=== PATIENT | male | born 1960 | race Caucasian/White ===

== ENCOUNTER 2016-05-20 17:23 | Inpatient (IN) | payer BC ==
[2016-05-20 18:50] LABS: Basophils # (A) 0.1 k/uL (0-0.2); Basophils % (A) 1 %; CH 30.9; CHCM 33.7; Eosinophils # (A) 0.3 k/uL (0-0.7); Eosinophils % (A) 3 %; HCT 39.2 % (39.0-53.0); HDW 2.54; HGB 12.6 gm/dL (13.0-17.5); Luc # (Auto) 0.21; Luc % (Auto) 2; Lymphocytes # (A) 2.6 k/uL (1.0-4.8); Lymphocytes % (A) 27 %; MCH 29.6 pg (25.0-35.0); MCHC 32.1 g/dL (31.0-37.0); MCV 92.2 fL (80.0-100.0); Mean Platelet Volume 7.6; Monocytes # (A) 0.9 k/uL (0-1.0); Monocytes % (A) 9 %; Neutrophils # (A) 5.7 k/uL (1.3-7.7); Neutrophils % (A) 59 %; RBC 4.25 m/uL (4.30-5.90); RDW 12.7 % (11.5-15.5); WBC 9.7 k/uL (3.8-10.6); WBC (Perox) 9.93
[2016-05-20 19:08] LABS: Partial Thromboplastin Time 24.3 sec (22.0-30.0); Prothrombin Time 10.6 sec (9.0-12.0)
[2016-05-20 19:19] LABS: ALT 34 U/L (21-72); AST 16 U/L (17-59); Alkaline Phosphatase 76 U/L (38-126); Anion Gap 15 mmol/L; Blood Urea Nitrogen 25 mg/dL (9-20); Calcium 9.7 mg/dL (8.4-10.2); Carbon Dioxide 27 mmol/L (22-30); Chloride 100 mmol/L (98-107); Glucose 111 mg/dL (74-99); Non-African American GFR(MDRD) >60 (>60 ml/min/1.73 sqM); Potassium 4.4 mmol/L (3.5-5.1); Sodium 142 mmol/L (137-145); Total Bilirubin 0.5 mg/dL (0.2-1.3); Total Protein 7.1 g/dL (6.3-8.2)
[2016-05-20 19:28] LABS: Creatine Kinase MB 0.6 ng/mL (0.0-2.4)
--- NOTE | 2016-05-20 19:42 | ED ---
Recheck HPI - General Chief Complaint: Recheck/Abnormal Lab/Rx Stated Complaint: abn CT scan Time Seen by Provider: 05/20/16 17:35 Source: patient, family, RN notes reviewed, old records reviewed Mode of arrival: wheelchair Limitations: no limitations - History of Present Illness Initial Comments: This is a 55-year-old male with a history of a recent right knee surgery who had the onset over last day or 2 of left-sided chest pain. He was seen by his orthopedic surgeon today CAT scan of the chest was ordered and did reveal evidence a right lower lobe pulmonary embolism. Additionally there was evidence of a dilated he ordered route 4.2 cm at the ascending aorta. Patient denies any fevers chills sweats cough he has had some shortness of breath. Mostly the chest pain it did not get worse with deep breathing or movement. Additionally he did have an ultrasound was lower extremities which did reveal no evidence of DVT. He's had no prior history of blood clots. He otherwise is been doing well. MD Complaint: other - Related Data Home Medications Medication Instructions Recorded Confirmed Docusate [Colace] 100 mg PO TID PRN 05/20/16 05/20/16 HYDROcodone/APAP 7.5-325MG [[place] 1 tab PO Q6HR PRN 05/20/16 05/20/16 7.5-325] Previous Rx's Medication Instructions Recorded Aspirin 325 mg PO BID #60 tab 05/06/16 Allergies Allergy/AdvReac Type Severity Reaction Status Date / Time shellfish derived [Shellfish] Allergy Anaphylaxis Verified 05/20/16 17:51 Review of Systems ROS Statement: Those systems with pertinent positive or pertinent negative responses have been documented in the HPI. ROS Other: All systems not noted in ROS Statement are negative. Past Medical History Past Medical History: Hyperlipidemia, Osteoarthritis (OA), Pneumonia Additional Past Medical History / Comment(s): 04/09/15 Pt presented to [facility] ER with cough, chest congestion, loss of voice (raspy). He saw his PCP and was placed on ABX and Medrol but has gotten no better- he feels worse. He has a sore throat and occasonal sweats and chills. He is being admitted with clinical impression of R lower lobe pneumonia, dyspnea and sinusitis. Other HX : Pt states he has had high cholesterol in the past but has never had to take medication for this, ocular migraines that are seasonal, sinus problems, otosclerosis, pneumonia 2009rare vertigo, NESTOR-no device used, OA of bilateral hands and knees, fx L arm and injury with R ankle damage yrs ago. History of Any Multi-Drug Resistant Organisms: None Reported Past Surgical History: Hernia Repair, Orthopedic Surgery Additional Past Surgical History / Comment(s): Umbilical hernia repair, R knee arthroscopy, fibroid tumor removed from L lower back, bronchoscopy 2008, sinuplasty with polypectomy. Past Anesthesia/Blood Transfusion Reactions: Motion Sickness, Postoperative Nausea & Vomiting (PONV) Past Psychological History: No Psychological Hx Reported Additional Psychological History / Comment(s): Pt states he is not sure but may have SAD. He is independent. He uses no assistive device. He lives with his spouse. He drives. Smoking Status: Never smoker Past Alcohol Use History: None Reported Past Drug Use History: None Reported - Past Family History Father Family Medical History: Renal Disease Additional Family Medical History / Comment(s): Father recently diagnosed with hydrocephalis. He is on peritoneal dialysis. He is 76 yrs old. Mother Family Medical History: No Reported History Additional Family Medical History / Comment(s): Mother is healthy and is 75 yrs. old. General Exam - General Exam Comments Initial Comments: This is a well developed well-nourished awake alert oriented times x3 male Limitations: no limitations General appearance: alert, in no apparent distress Head exam: Present: atraumatic, normocephalic, normal inspection Eye exam: Present: normal appearance, PERRL, EOMI. Absent: scleral icterus, conjunctival injection, periorbital swelling ENT exam: Present: normal exam, mucous membranes moist Neck exam: Present: normal inspection. Absent: tenderness, meningismus, lymphadenopathy Respiratory exam: Present: normal lung sounds bilaterally, chest wall tenderness. Absent: respiratory distress, wheezes, rales, rhonchi, stridor Cardiovascular Exam: Present: regular rate, normal rhythm, normal heart sounds. Absent: systolic murmur, diastolic murmur, rubs, gallop, clicks GI/Abdominal exam: Present: soft, normal bowel sounds. Absent: distended, tenderness, guarding, rebound, rigid Extremities exam: Present: normal capillary refill, other (Well-healing surgical incision over the right knee no evidence of any erythema no drainage no dehiscence. The catheter bilaterally nontender not edematous no palpable cords.). Absent: tenderness, pedal edema, joint swelling, calf tenderness Back exam: Present: normal inspection Neurological exam: Present: alert, oriented X3, CN II-XII intact Psychiatric exam: Present: normal affect, normal mood Skin exam: Present: warm, dry, normal color. Absent: rash Course Vital Signs 05/20/16 17:27 Temperature 98.3 F Pulse Rate 87 Respiratory 20 Rate Blood Pressure 135/79 O2 Sat by Pulse 97 Oximetry Medical Decision Making - Medical Decision Making I did discuss the findings with the patient and his patient will be admitted I did discuss case with Dr. Sanford. - Lab Data Result diagrams: 05/20/16 18:05 05/20/16 18:05 Lab Results 05/20/16 05/20/16 05/20/16 Range/Units 18:05 18:05 18:05 WBC 9.7 (3.8-10.6) k/uL RBC 4.25 L (4.30-5.90) m/uL Hgb 12.6 L (13.0-17.5) gm/dL Hct 39.2 (39.0-53.0) % MCV 92.2 (80.0-100.0) fL MCH 29.6 (25.0-35.0) pg MCHC 32.1 (31.0-37.0) g/dL RDW 12.7 (11.5-15.5) % Plt Count 542 H D (150-450) k/uL Neutrophils % 59 % Lymphocytes % 27 % Monocytes % 9 % Eosinophils % 3 % Basophils % 1 % Neutrophils # 5.7 (1.3-7.7) k/uL Lymphocytes # 2.6 (1.0-4.8) k/uL Monocytes # 0.9 (0-1.0) k/uL Eosinophils # 0.3 (0-0.7) k/uL Basophils # 0.1 (0-0.2) k/uL PT 10.6 (9.0-12.0) sec INR 1.0 (<1.1) APTT 24.3 (22.0-30.0) sec Sodium (137-145) mmol/L Potassium (3.5-5.1) mmol/L Chloride (98-107) mmol/L Carbon Dioxide (22-30) mmol/L Anion Gap mmol/L BUN (9-20) mg/dL Creatinine (0.66-1.25) mg/dL Est GFR (MDRD) Af Amer (>60 ml/min/1.73 sqM) Est GFR (MDRD) Non-Af (>60 ml/min/1.73 sqM) Glucose (74-99) mg/dL Calcium (8.4-10.2) mg/dL Magnesium (1.6-2.3) mg/dL Total Bilirubin (0.2-1.3) mg/dL AST (17-59) U/L ALT (21-72) U/L Alkaline Phosphatase (38-126) U/L Total Creatine Kinase 56 (55-170) U/L CK-MB (CK-2) 0.6 (0.0-2.4) ng/mL CK-MB (CK-2) Rel Index 1.1 Total Protein (6.3-8.2) g/dL Albumin (3.5-5.0) g/dL 05/20/16 Range/Units 18:05 WBC (3.8-10.6) k/uL RBC (4.30-5.90) m/uL Hgb (13.0-17.5) gm/dL Hct (39.0-53.0) % MCV (80.0-100.0) fL MCH (25.0-35.0) pg MCHC (31.0-37.0) g/dL RDW (11.5-15.5) % Plt Count (150-450) k/uL Neutrophils % % Lymphocytes % % Monocytes % % Eosinophils % % Basophils % % Neutrophils # (1.3-7.7) k/uL Lymphocytes # (1.0-4.8) k/uL Monocytes # (0-1.0) k/uL Eosinophils # (0-0.7) k/uL Basophils # (0-0.2) k/uL PT (9.0-12.0) sec INR (<1.1) APTT (22.0-30.0) sec Sodium 142 (137-145) mmol/L Potassium 4.4 (3.5-5.1) mmol/L Chloride 100 (98-107) mmol/L Carbon Dioxide 27 (22-30) mmol/L Anion Gap 15 mmol/L BUN 25 H (9-20) mg/dL Creatinine 0.93 (0.66-1.25) mg/dL Est GFR (MDRD) Af Amer >60 (>60 ml/min/1.73 sqM) Est GFR (MDRD) Non-Af >60 (>60 ml/min/1.73 sqM) Glucose 111 H (74-99) mg/dL Calcium 9.7 (8.4-10.2) mg/dL Magnesium 2.0 (1.6-2.3) mg/dL Total Bilirubin 0.5 (0.2-1.3) mg/dL AST 16 L (17-59) U/L ALT 34 (21-72) U/L Alkaline Phosphatase 76 (38-126) U/L Total Creatine Kinase (55-170) U/L CK-MB (CK-2) (0.0-2.4) ng/mL CK-MB (CK-2) Rel Index Total Protein 7.1 (6.3-8.2) g/dL Albumin 4.1 (3.5-5.0) g/dL Disposition Clinical Impression: Pulmonary embolism, Aortic root dilatation Disposition: ADMITTED IP TO THIS HOSP Condition: Stable
[2016-05-20] MEDS ORDERED: NALOXONE 0.4 MG/ML 1 ML VIAL IV PRN (19:58)
[2016-05-20] MEDS ORDERED: HEPARIN SODIUM,PORCINE 5,000 UNIT/ML 1 ML VIAL IV STA (20:01)
[2016-05-20] MEDS: SODIUM CHLORIDE 0.9% 1,000 ML IV SCH (20:50)
[2016-05-20] MEDS: HEPARIN SODIUM,PORCINE/D5W PMX 25,000 UNIT in DEXTROSE/WATER 1 500ML.BAG IV SCH (20:52)
[2016-05-20 21:59] VITALS: BMI 30.8
[2016-05-20] MEDS ORDERED: DOCUSATE 100 MG CAP PO PRN (22:00)
[2016-05-21] MEDS ORDERED: TEMAZEPAM 15 MG CAP PO PRN (00:49)
[2016-05-21] MEDS ORDERED: ALPRAZolam 0.25 MG TAB PO PRN (00:49)
[2016-05-21] MEDS: HYDROcodone/APAP 7.5-325MG 1 EACH TAB PO PRN ×2 (04:36→19:29)
[2016-05-21] MEDS ORDERED: HEPARIN SODIUM,PORCINE 5,000 UNIT/ML 1 ML VIAL IV PRN (04:40)
[2016-05-21] MEDS: PANTOPRAZOLE 40 MG TABLET PO SCH (06:34)
--- NOTE | 2016-05-21 09:11 | P.CNOR ---
History of Present Illness - [facility] Consult date: 05/21/16 Consult reason: other (Pulmonary Embolism, s/p TKA right) History of present illness: This is a 55-year-old male who is 2 weeks status post total right knee arthroplasty. He was doing fairly well at home. He was attending physical therapy. He states that he developed some left-sided chest pain over the past couple of days. He was seen in our office yesterday and was sent to [facility] for evaluation of his chest pain from our office. Spiral CT scan of the chest reveals a right lower lobe pulmonary embolism and aortic root dilatation. He is admitted to internal medicine and we are consult in for orthopedic follow-up of his right knee. Past Medical History Past Medical History: Hyperlipidemia, Osteoarthritis (OA), Pneumonia Additional Past Medical History / Comment(s): 04/09/15 Pt presented to [facility] ER with cough, chest congestion, loss of voice (raspy). He saw his PCP and was placed on ABX and Medrol but has gotten no better- he feels worse. He has a sore throat and occasonal sweats and chills. He is being admitted with clinical impression of R lower lobe pneumonia, dyspnea and sinusitis. Other HX : Pt states he has had high cholesterol in the past but has never had to take medication for this, ocular migraines that are seasonal, sinus problems, otosclerosis, pneumonia 2009rare vertigo, NESTOR-no device used, OA of bilateral hands and knees, fx L arm and injury with R ankle damage yrs ago. History of Any Multi-Drug Resistant Organisms: None Reported Past Surgical History: Hernia Repair, Orthopedic Surgery Additional Past Surgical History / Comment(s): Umbilical hernia repair, R knee arthroscopy, fibroid tumor removed from L lower back, bronchoscopy 2008, sinuplasty with polypectomy. right total knee replacement 05/05/16 Past Anesthesia/Blood Transfusion Reactions: Motion Sickness, Postoperative Nausea & Vomiting (PONV) Past Psychological History: No Psychological Hx Reported Additional Psychological History / Comment(s): Pt states he is not sure but may have SAD. He is independent. He uses no assistive device. He lives with his spouse. He drives. Smoking Status: Never smoker Past Alcohol Use History: None Reported Past Drug Use History: None Reported - Past Family History Brother(s) Family Medical History: No Reported History Sister(s) Family Medical History: No Reported History Father Family Medical History: Renal Disease Additional Family Medical History / Comment(s): Father recently diagnosed with hydrocephalis (NPH). He is on peritoneal dialysis. He is 76 yrs old. Mother Family Medical History: No Reported History Additional Family Medical History / Comment(s): Mother is healthy and is 75 yrs. old. Medications and Allergies Home Medications Medication Instructions Recorded Confirmed Type Docusate [Colace] 100 mg PO TID PRN 05/20/16 05/20/16 History HYDROcodone/APAP 7.5-325MG [[place] 1 tab PO Q6HR PRN 05/20/16 05/20/16 History 7.5-325] Allergies Allergy/AdvReac Type Severity Reaction Status Date / Time shellfish derived [Shellfish] Allergy Anaphylaxis Verified 05/20/16 17:51 Physical Examination This is a pleasant 55-year-old male in no acute distress. He is alert and oriented 3. Exam of the right lower extremity reveals that his incision looks good. There is no erythema or ecchymosis. There is minimal swelling. The Dermabond glue and taper intact. His calf is soft and nontender. He has full foot and ankle motion without difficulty or pain. He has active straight leg raise without difficulty or pain. Neurovascular status to the right lower extremity is intact. Results Computed tomography scan of the chest reveals a pulmonary embolism to the right lower lobe and findings suggestive of aortic root dilatation. - Labs Labs: Abnormal Lab Results - Last 24 Hours (Table) 05/21/16 Range/Units 03:26 APTT 37.9 H (22.0-30.0) sec Result Diagrams: 05/20/16 18:05 05/20/16 18:05 Assessment and Plan (1) Aortic root dilatation Status: Acute (2) Pulmonary embolism Status: Acute (3) Osteoarthritis of right knee Status: Acute (4) S/P total knee arthroplasty Status: Acute Plan: The clinical findings are discussed the patient. He is under the care of internal medicine. He may use CPM and participate in physical therapy if okay with internal medicine. I have given the nurse instructions as to how to remove the Dermabond tape. We'll continue to follow.
--- NOTE | 2016-05-21 09:57 | HP ---
DATE OF ADMISSION: 05/20/2015 CHIEF COMPLAINT: Chest pain and shortness of breath. HISTORY OF PRESENT ILLNESS: This 55-year-old gentleman who recently had right knee surgery by Orthopedic Surgery, was complaining of left-sided chest pain for about 2 days. The patient also complains of shortness of breath. He was seen by orthopedic surgery and was recommended CTA which showed pulmonary embolism present in the right lower and left lower lobe, possibly arteriovenous malformation and ascending aortic aneurysm of about 4.2 cm. The patient was admitted for further evaluation and treatment. Ultrasound of the leg was also done, which did not show any acute DVT. There is no history of any fever, rigors or chills. No history of headache, loss of consciousness or seizures. No family history of at this time. The patient follows with Dr. Soto in the outpatient setting. PAST MEDICAL HISTORY: History of recent knee surgery, hyperlipidemia, history of DJD, history of pneumonia, history of hernia repair, history of DJD. Medications prior to admission include: 1. [place] 7.5 every 6 hours p.r.n.. 2. Colace 100 mg t.i.d. 3. Aspirin 325 mg b.i.d. ALLERGIES: SHELLFISH. FAMILY HISTORY: Family history of renal disease, hydrocephalus in father. SOCIAL HISTORY: No history of smoking. No history of alcohol intake. REVIEW OF SYSTEMS: ENT: No diminished vision or hearing. source. The patient is followed by Dr. Soto in the. SOCIAL HISTORY: No. REVIEW OF SYSTEMS: ENT: No diminished hearing. CARDIOVASCULAR: None. GI: No nausea. : No dysuria. NERVOUS SYSTEM: No numbness or weakness. ALLERGY/IMMUNOLOGY: As mentioned earlier. CONSTITUTIONAL: As mentioned earlier. PSYCHIATRY: As mentioned earlier. PHYSICAL EXAM: VITAL SIGNS: Pulse 93, respirations 130/58, respirations 18, temperature 98.1, pulse ox 97% on 2 liters. HEENT: Conjunctivae normal. Oral mucosa moist. NECK: No JVD. No carotid bruits. No lymph nodes palpable. CARDIOVASCULAR: S1 and S2 muffled. LUNGS: Breath sounds diminished at the bases. A few scattered rhonchi, no crackles. ABDOMEN: Soft, nontender. EXTREMITIES: Legs status post right knee arthroplasty, healing. No edema, no swelling. Pulses normal. NERVOUS SYSTEM: As aforementioned. Moves all limbs. No focal motor deficits. No lymph nodes palpable in the neck or axilla. SKIN: No rashes. LABS: WBC 9, hemoglobin 12.6, platelets 542. CT scan reviewed. AST 16. ASSESSMENT: 1. Acute bilateral embolism. No chest pain or shortness of breath. 2. History of recent right knee arthroplasty. 3. History of degenerative joint disease. 4. Hyperlipidemia. 5. History of pneumonia. 6. History of hernia repair, umbilical. 7. Anemia, normocytic anemia of chronic disease. 8. Increased platelets. 9. Increased random blood sugar. RECOMMENDATIONS AND DISCUSSION: In this 55-year-old gentleman who presented with multiple medical issues, we will monitor the patient closely. Continue with the condition medications and symptomatic treatment. I would recommend to continue with IV heparin drip. Otherwise symptomatic treatment of pain. I would also recommend consultation with Dr. Mckinney and as well as cardiology. EKG and cardiac workup also recommended including a 2-D echo. Otherwise, prognosis guarded because of multiple complex medical issues. Further recommendations to follow. MTDD
[2016-05-21] MEDS: HEPARIN SODIUM,PORCINE/D5W PMX 25,000 UNIT in DEXTROSE/WATER 1 500ML.BAG IV SCH (11:05)
--- NOTE | 2016-05-21 11:33 | ECHOF ---
Referral Reason:chest pain/PE MEASUREMENTS -------- HEIGHT: 177.8 cm WEIGHT: 91.2 kg BP: 127/85 RVIDd: 3.3 cm (< 3.3) IVSd: 1.3 cm (0.6 - 1.1) LVIDd: 4.4 cm (3.9 - 5.3) LVPWd: 1.2 cm (0.6 - 1.1) IVSs: 1.8 cm LVIDs: 3.2 cm LVPWs: 2.2 cm LA Diam: 3.6 cm (2.7 - 3.8) LAESV Index (A-L): 21.37 ml/m Ao Diam: 4.5 cm (2.0 - 3.7) AV Cusp: 2.9 cm (1.5 - 2.6) MV EXCURSION: 16.920 mm (> 18.000) MV EF SLOPE: 93 mm/s (70 - 150) EPSS: 0.7 cm MV E Efraín: 0.98 m/s MV DecT: 186 ms MV A Efraín: 1.07 m/s MV E/A Ratio: 0.92 RAP: 5.00 mmHg RVSP: 17.61 mmHg FINDINGS -------- Sinus rhythm. This was a technically good study. The left ventricular size is normal. There is mild concentric left ventricular hypertrophy. Overall left ventricular systolic function is normal with, an EF between 60 - 65 %. The right ventricle is mildly enlarged. The left atrium is normal in size. Normal LA size by volume 22+/-6 ml/m2. The right atrium is normal in size. The aortic valve is trileaflet and appears structurally normal. Mild mitral annular calcification present. The tricuspid valve appears structurally normal. Right ventricular systolic pressure is normal at < 35 mmHg. Trace/mild (physiologic) pulmonic regurgitation. The aortic root is dilated measuring 4.5cm. Normal inferior vena cava with normal inspiratory collapse consistent with estimated right atrial pressure of 5 mmHg. There is no pericardial effusion. CONCLUSIONS -------- 1. Sinus rhythm. 2. Mild mitral annular calcification present. 3. The tricuspid valve appears structurally normal. 4. Right ventricular systolic pressure is normal at < 35 mmHg. 5. Trace/mild (physiologic) pulmonic regurgitation. 6. The aortic root is dilated measuring 4.5cm. 7. Normal inferior vena cava with normal inspiratory collapse consistent with estimated right atrial pressure of 5 mmHg. 8. There is no pericardial effusion. 9. This was a technically good study. 10. The left ventricular size is normal. 11. There is mild concentric left ventricular hypertrophy. 12. Overall left ventricular systolic function is normal with, an EF between 60 - 65 %. 13. The right ventricle is mildly enlarged. 14. Normal LA size by volume 22+/-6 ml/m2. 15. The right atrium is normal in size. 16. The aortic valve is trileaflet and appears structurally normal. SUPER[employer]OR [employer]ICLE: Josefina Nieves RDCS
--- NOTE | 2016-05-21 12:08 | P.CRDCN ---
History of Present Illness Consult date: 05/21/16 Requesting physician: Enedina Sanford Reason for Consult (text): PE Chief complaint: Chest pain and shortness of breath History of present illness: This is a 55-year-old gentleman with no prior documented history of hypertension, no diabetes, no hyperlipidemia, nonsmoker, who underwent right knee surgery on May 05. According to the patient, Thursday evening he developed a severe sudden onset of left-sided chest pain with associated shortness of breath. He states that the symptoms subsided, and he did not think any more about it. Thursday evening around the same time he again developed the same symptoms. The patient had an appointment with Dr. Houston for follow-up yesterday, he mentioned these symptoms to him, was advised to go and have a CTA of the chest performed. CTA of the chest revealed pulmonary embolism present in the right lower lobe. Findings in the left lower lobe may represent and AV malformation follow-up was recommended. Ascending aortic aneurysm measured 4.2 cm. Venous duplex study negative for DVT. Patient was initiated on IV heparin, continues to be on IV heparin at this time. An echocardiogram with Doppler study was performed revealed an ejection fraction of 60-65%. RVSP normal. Lab data reviewed, hemoglobin 12.6, potassium 4.4, BUN 25, creatinine 0.9. Troponins 0.0122. At the time of my examination this morning, patient states his breathing is stable, chest pain is resolved. Past Medical History Past Medical History: Hyperlipidemia, Osteoarthritis (OA), Pneumonia Additional Past Medical History / Comment(s): 04/09/15 Pt presented to [facility] ER with cough, chest congestion, loss of voice (raspy). He saw his PCP and was placed on ABX and Medrol but has gotten no better- he feels worse. He has a sore throat and occasonal sweats and chills. He is being admitted with clinical impression of R lower lobe pneumonia, dyspnea and sinusitis. Other HX : Pt states he has had high cholesterol in the past but has never had to take medication for this, ocular migraines that are seasonal, sinus problems, otosclerosis, pneumonia 2009rare vertigo, NESTOR-no device used, OA of bilateral hands and knees, fx L arm and injury with R ankle damage yrs ago. History of Any Multi-Drug Resistant Organisms: None Reported Past Surgical History: Hernia Repair, Orthopedic Surgery Additional Past Surgical History / Comment(s): Umbilical hernia repair, R knee arthroscopy, fibroid tumor removed from L lower back, bronchoscopy 2008, sinuplasty with polypectomy. right total knee replacement 05/05/16 Past Anesthesia/Blood Transfusion Reactions: Motion Sickness, Postoperative Nausea & Vomiting (PONV) Past Psychological History: No Psychological Hx Reported Additional Psychological History / Comment(s): Pt states he is not sure but may have SAD. He is independent. He uses no assistive device. He lives with his spouse. He drives. Smoking Status: Never smoker Past Alcohol Use History: None Reported Past Drug Use History: None Reported - Past Family History Brother(s) Family Medical History: No Reported History Sister(s) Family Medical History: No Reported History Father Family Medical History: Renal Disease Additional Family Medical History / Comment(s): Father recently diagnosed with hydrocephalis (NPH). He is on peritoneal dialysis. He is 76 yrs old. Mother Family Medical History: No Reported History Additional Family Medical History / Comment(s): Mother is healthy and is 75 yrs. old. Medications and Allergies Home Medications Medication Instructions Recorded Confirmed Type Docusate [Colace] 100 mg PO TID PRN 05/20/16 05/20/16 History HYDROcodone/APAP 7.5-325MG [[place] 1 tab PO Q6HR PRN 05/20/16 05/20/16 History 7.5-325] Allergies Allergy/AdvReac Type Severity Reaction Status Date / Time shellfish derived [Shellfish] Allergy Anaphylaxis Verified 05/20/16 17:51 Physical Exam Vitals: Vital Signs Temp Pulse Pulse Resp BP BP Pulse Ox 05/21/16 11:49 71 17 127/71 97 05/21/16 08:00 97 F L 70 17 115/70 96 05/21/16 04:00 98.7 F 74 16 127/85 94 L 05/21/16 00:00 97.2 F L 90 16 130/80 96 05/20/16 21:36 97.9 F 98 16 136/83 95 05/20/16 20:44 99.1 F 93 18 135/81 97 05/20/16 20:27 18 Intake and Output 05/20/16 05/21/16 05/21/16 22:59 06:59 14:59 Intake Total 253.582 Output Total 775 Balance -521.418 Intake: Intake, IV Titration 253.582 Amount Heparin Sodium,Porcine/ 253.582 D5w Pmx 25,000 unit In Dextrose/Water 1 500ml. bag @ 18 UNITS/KG/HR 32. 65 mls/hr IV .[id number] [facility] Rx#:[id number] Output: Urine 775 Other: Voiding Method Urinal Urinal Urinal Weight 97.4 kg 91.4 kg PHYSICAL EXAMINATION: HEENT: Head is atraumatic, normocephalic. Pupils equal, round. Neck is supple. There is no elevated jugular venous pressure. HEART EXAMINATION: Heart S1, S2 normal. No murmur or gallop heard. CHEST EXAMINATION: Lungs are clear to auscultation and precussion. No chest wall tenderness is noted on palpation or with deep breathing. ABDOMEN: Soft, nontender. Bowel sounds are heard. No organomegaly noted. EXTREMITIES: 2+ peripheral pulses with no evidence of peripheral edema and no calf tenderness noted. Incision on right knee clean and dry. NEUROLOGIC patient is awake, alert and oriented -3. . Results 05/20/16 18:05 05/20/16 18:05 Cardiac Enzymes 05/21/16 05/21/16 Range/Units 00:23 06:27 Troponin I <0.012 <0.012 (0.000-0.034) ng/mL Coagulation 05/21/16 Range/Units 03:26 APTT 37.9 H (22.0-30.0) sec Current Medications Generic Name Dose Route Start Last Admin Trade Name Freq PRN Reason Stop Dose Admin Acetaminophen/Hydrocodone Bitart 1 each 05/20/16 22:00 05/21/16 04:36 [place] 7.5-325 PO 1 each Q6HR PRN Administration Pain Alprazolam 0.25 mg 05/21/16 00:49 Xanax PO TID PRN Anxiety Docusate Sodium 100 mg 05/20/16 22:00 Colace PO TID PRN Constipation Heparin Sodium (Porcine) 0 unit 05/21/16 04:40 05/21/16 04:53 Heparin IV 7,792 unit PER PROTOCOL PRN Administration Low PTT Protocol Heparin Sodium/Dextrose 25,000 500 mls @ 32.65 mls/hr 05/20/16 20:15 11:05 unit/ IV Solution IV Not Given .[id number] [facility] Protocol 18 UNITS/KG/HR Sodium Chloride 1,000 mls @ 20 mls/hr 05/20/16 20:00 05/20/16 20:50 Saline 0.9% IV 20 mls/hr .Q24H [facility] Administration Naloxone HCl 0.2 mg 05/20/16 19:58 Narcan IV Q2M PRN Opioid Reversal Pantoprazole Sodium 40 mg 05/21/16 07:30 05/21/16 06:34 Protonix PO 40 mg [id number] [facility] Administration Temazepam 15 mg 05/21/16 00:49 Restoril PO HS PRN Insomnia Intake and Output 05/20/16 05/21/16 05/21/16 22:59 06:59 14:59 Intake Total 253.582 Output Total 775 Balance -521.418 Intake: Intake, IV Titration 253.582 Amount Heparin Sodium,Porcine/ 253.582 D5w Pmx 25,000 unit In Dextrose/Water 1 500ml. bag @ 18 UNITS/KG/HR 32. 65 mls/hr IV .[id number] [facility] Rx#:[id number] Output: Urine 775 Other: Voiding Method Urinal Urinal Urinal Weight 97.4 kg 91.4 kg EKG Interpretations (text) EKG shows normal sinus rhythm with no acute changes. Assessment and Plan Plan: Assessment and plan # 1 acute pulmonary embolism, patient currently on IV heparin. #2 status post total right knee arthroplasty on May 05. Plan From cardiology's perspective, we will recommend to continue current dose of IV heparin. We will also check to see if the patient has coverage for one of the newer anticoagulants, if so we will initiate this. Further recommendations to follow. DNP note has been reviewed, I agree with a documented findings and plan of care. Patient was seen and examined.
--- NOTE | 2016-05-21 12:51 | P.CNPUL ---
History of Present Illness Consult date: 05/21/16 Reason for consult: dyspnea, chest pain Chief complaint: Chest pain and shortness of breath History of present illness: This is a 55-year-old gentleman who just recently had right knee surgery done by Dr. Jones. The patient Don was sitting at home a day ago in his lazy boy chair and about 3:00 in the morning developed some pain in the left chest and some difficulty breathing. The patient came to the emergency room he was evaluated and found have a blood clot in his lung. The patient is feeling better today. Not requiring any oxygen therapy. Anyway the patient is doing better. Currently on IV heparin. He does have some pain when he takes a deep breath. And then had a chance to look at the studies as yet. He is hoping to be discharged home in next day or so. He's been mostly lying around not doing very much since he had his right knee replacement. Review of Systems A 12 point review of system is positive for chest pain primarily and some shortness of breath as a minor symptom. These are pretty much resolved. He denies other complaints and states that the rest of the 12 point review of system is unremarkable. Past Medical History Past Medical History: Hyperlipidemia, Osteoarthritis (OA), Pneumonia Additional Past Medical History / Comment(s): 04/09/15 Pt presented to [facility] ER with cough, chest congestion, loss of voice (raspy). He saw his PCP and was placed on ABX and Medrol but has gotten no better- he feels worse. He has a sore throat and occasonal sweats and chills. He is being admitted with clinical impression of R lower lobe pneumonia, dyspnea and sinusitis. Other HX : Pt states he has had high cholesterol in the past but has never had to take medication for this, ocular migraines that are seasonal, sinus problems, otosclerosis, pneumonia 2009rare vertigo, NESTOR-no device used, OA of bilateral hands and knees, fx L arm and injury with R ankle damage yrs ago. History of Any Multi-Drug Resistant Organisms: None Reported Past Surgical History: Hernia Repair, Orthopedic Surgery Additional Past Surgical History / Comment(s): Umbilical hernia repair, R knee arthroscopy, fibroid tumor removed from L lower back, bronchoscopy 2008, sinuplasty with polypectomy. right total knee replacement 05/05/16 Past Anesthesia/Blood Transfusion Reactions: Motion Sickness, Postoperative Nausea & Vomiting (PONV) Past Psychological History: No Psychological Hx Reported Additional Psychological History / Comment(s): Pt states he is not sure but may have SAD. He is independent. He uses no assistive device. He lives with his spouse. He drives. Smoking Status: Never smoker Past Alcohol Use History: None Reported Past Drug Use History: None Reported - Past Family History Brother(s) Family Medical History: No Reported History Sister(s) Family Medical History: No Reported History Father Family Medical History: Renal Disease Additional Family Medical History / Comment(s): Father recently diagnosed with hydrocephalis (NPH). He is on peritoneal dialysis. He is 76 yrs old. Mother Family Medical History: No Reported History Additional Family Medical History / Comment(s): Mother is healthy and is 75 yrs. old. Medications and Allergies Home Medications Medication Instructions Recorded Confirmed Type Docusate [Colace] 100 mg PO TID PRN 05/20/16 05/20/16 History HYDROcodone/APAP 7.5-325MG [[place] 1 tab PO Q6HR PRN 05/20/16 05/20/16 History 7.5-325] Allergies Allergy/AdvReac Type Severity Reaction Status Date / Time shellfish derived [Shellfish] Allergy Anaphylaxis Verified 05/20/16 17:51 Physical Exam Osteopathic Statement: *. No significant issues noted on an osteopathic structural exam other than those noted in the History and Physical/Consult. Vitals: Vital Signs Temp Pulse Pulse Resp BP BP Pulse Ox 05/21/16 11:49 71 17 127/71 97 05/21/16 08:00 97 F L 70 17 115/70 96 05/21/16 04:00 98.7 F 74 16 127/85 94 L 05/21/16 00:00 97.2 F L 90 16 130/80 96 05/20/16 21:36 97.9 F 98 16 136/83 95 05/20/16 20:44 99.1 F 93 18 135/81 97 05/20/16 20:27 18 Intake and Output 05/20/16 05/21/16 05/21/16 22:59 06:59 14:59 Intake Total 253.582 Output Total 775 Balance -521.418 Intake: Intake, IV Titration 253.582 Amount Heparin Sodium,Porcine/ 253.582 D5w Pmx 25,000 unit In Dextrose/Water 1 500ml. bag @ 18 UNITS/KG/HR 32. 65 mls/hr IV .[id number] [facility] Rx#:[id number] Output: Urine 775 Other: Voiding Method Urinal Urinal Urinal Weight 97.4 kg 91.4 kg No acute distress, oriented 3. HEENT examination is grossly unremarkable. Mucous membranes are moist. No oral lesions. Neck supple. Full range of motion. No adenopathy or thyromegaly. Neck veins are flat. Cardiovascular examination reveals regular rhythm rate. S1-S2 normal. No S3- S4 or murmur. Lungs reveal clear breath sounds. No wheezes rhonchi. No crackles. Abdomen soft bowel sounds are heard. Extremities are intact. The incision from the recent right knee surgeries noted. Results - Laboratory Findings CBC and BMP: 05/20/16 18:05 05/20/16 18:05 PT/INR, D-dimer PT 10.6 sec (9.0-12.0) 05/20/16 18:05 INR 1.0 (<1.1) 05/20/16 18:05 Abnormal lab findings: Abnormal Labs 05/21/16 03:26 APTT 37.9 H - Diagnostic Findings Chest x-ray: image reviewed CT scan - chest: image reviewed Assessment and Plan (1) Pulmonary embolism Status: Acute (2) Osteoarthritis of right knee Status: Acute (3) S/P total knee arthroplasty Status: Acute (4) Sinusitis Status: Acute Plan: Plan The patient should be treated for 3 months. This is a provoked a blood clot given the recent history of a right knee surgery. The patient should be treated with was a new factor X a inhibitor such as Eliquis or Xarelto. The patient otherwise is doing recently well. I'll look at his labs his medications and his x-rays. I will see him back in the office. In addition, the patient will have some Singulair added to his regimen for ALLERGIES. He needs a follow-up computed tomography scan in about 8-10 weeks just to make sure the clot has dissipated. Time with Patient: Greater than 30
[2016-05-21] MEDS ORDERED: MONTELUKAST 10 MG TAB PO SCH (21:00)
[2016-05-22] MEDS: SODIUM CHLORIDE 0.9% 1,000 ML IV SCH
[2016-05-22 06:08] LABS: Basophils # (A) 0.1 k/uL (0-0.2); Basophils % (A) 1 %; CH 30.5; CHCM 32.7; Eosinophils # (A) 0.4 k/uL (0-0.7); Eosinophils % (A) 5 %; HDW 2.45; HGB 13.2 gm/dL (13.0-17.5); Luc # (Auto) 0.33; Luc % (Auto) 4; Lymphocytes # (A) 2.8 k/uL (1.0-4.8); Lymphocytes % (A) 33 %; MCHC 33.1 g/dL (31.0-37.0); MCV 93.8 fL (80.0-100.0); Monocytes # (A) 0.7 k/uL (0-1.0); Monocytes % (A) 8 %; Neutrophils # (A) 4.1 k/uL (1.3-7.7); Neutrophils % (A) 49 %; RBC 4.26 m/uL (4.30-5.90); RDW 12.7 % (11.5-15.5); WBC 8.3 k/uL (3.8-10.6); WBC (Perox) 8.66
[2016-05-22] MEDS: HYDROcodone/APAP 7.5-325MG 1 EACH TAB PO PRN ×2 (06:11→13:47)
[2016-05-22] MEDS: PANTOPRAZOLE 40 MG TABLET PO SCH (06:12)
[2016-05-22] MEDS: HEPARIN SODIUM,PORCINE/D5W PMX 25,000 UNIT in DEXTROSE/WATER 1 500ML.BAG IV SCH ×2 (06:13→11:11)
[2016-05-22 06:20] LABS: Anion Gap 13 mmol/L; Blood Urea Nitrogen 19 mg/dL (9-20); Carbon Dioxide 29 mmol/L (22-30); Chloride 103 mmol/L (98-107); Glucose 135 mg/dL (74-99); Non-African American GFR(MDRD) >60 (>60 ml/min/1.73 sqM); Potassium 4.7 mmol/L (3.5-5.1); Sodium 145 mmol/L (137-145)
[2016-05-22 09:14] VITALS: PULSE 77; RESP 18
--- NOTE | 2016-05-22 09:50 | PN ---
DATE OF SERVICE: 05/21/2016 This 55-year-old gentleman admitted with acute pulmonary embolism was on IV heparin. Seen and evaluated the patient along with the nurse practitioner. Please refer to nurse practitioner notes and impression documented for further information. The patient was also seen by Dr. Mckinney. PAST MEDICAL HISTORY: Reviewed. REVIEW OF SYSTEMS: CARDIOVASCULAR SYSTEM: No angina. RESPIRATORY: As mentioned earlier. GI: No nausea. : No dysuria. Current medications are: 1. [place]. 2. Xanax. 3. Heparin. 4. Singulair. 5. Narcan. 6. Restoril. RECOMMENDATIONS AND DISCUSSION: I recommend to continue current medications, continue with symptomatic treatment. Continue with IV heparin. Check for Xarelto coverage. Increase ambulation. Closely follow with multiple consultants. Singulair has been added. Further recommendations to follow.
--- NOTE | 2016-05-22 10:01 | P.PN ---
Subjective Principal diagnosis: Status post total right knee arthroplasty. This is a 55-year-old male who we are following regarding his total right knee arthroplasty. He developed a pulmonary embolism is admitted to [facility]. He is doing well today. He states his chest pain is improved. He has no complaints or concerns regarding the knee. Objective - Vital Signs Vital signs: Vital Signs Temp 96.6 F L 05/22/16 09:13 Pulse 77 05/22/16 09:13 Resp 18 05/22/16 09:13 BP 127/70 05/22/16 09:13 Pulse Ox 96 05/22/16 09:13 Intake & Output 05/21/16 05/22/16 05/22/16 18:59 06:59 18:59 Intake Total 1302.418 354 Output Total 1150 Balance 1302.418 -1150 354 Weight 96.4 kg Intake: IV 160 Sodium Chloride 0.9% 1, 160 000 ml @ 20 mls/hr IV . Q24H [facility] Rx#:[id number] Intake, IV Titration 246.418 Amount Heparin Sodium,Porcine/ 246.418 D5w Pmx 25,000 unit In Dextrose/Water 1 500ml. bag @ 18 UNITS/KG/HR 32. 65 mls/hr IV .[id number] [facility] Rx#:[id number] Oral [id number] [id number] Output: Urine 1150 Other: Voiding Method Urinal Urinal Urinal - Exam Is a pleasant 65-year-old male in no acute distress. He is alert and oriented 3. Exam of the right knee reveals that his incision looks good. The Dermabond tape is intact. He is working on getting that off with vitamin E oil. He has full foot and ankle motion without difficulty or pain. Neurovascular status lower extremity is intact. - Labs CBC & Chem 7: 05/22/16 05:37 05/22/16 05:37 Labs: Abnormal Lab Results - Last 24 Hours (Table) 05/21/16 05/22/16 05/22/16 Range/Units 11:45 05:37 05:37 RBC 4.26 L (4.30-5.90) m/uL Plt Count 533 H (150-450) k/uL APTT 56.5 H (22.0-30.0) sec Glucose 135 H (74-99) mg/dL 05/22/16 Range/Units 05:37 RBC (4.30-5.90) m/uL Plt Count (150-450) k/uL APTT 50.9 H (22.0-30.0) sec Glucose (74-99) mg/dL Assessment and Plan (1) Aortic root dilatation Status: Acute (2) Pulmonary embolism Status: Acute (3) Osteoarthritis of right knee Status: Acute (4) S/P total knee arthroplasty Status: Acute Plan: The clinical findings are discussed the patient. He is under the care of internal medicine. He may use CPM and participate in physical therapy if okay with internal medicine. I have given the nurse instructions as to how to remove the Dermabond tape. We'll continue to follow.
[2016-05-22] MEDS ORDERED: ACETAMINOPHEN TAB 500 MG TAB PO PRN (10:03)
[2016-05-22 11:33] VITALS: BP 117/59; TEMP 96.9
--- NOTE | 2016-05-22 11:51 | P.PN ---
Subjective Progress note dated 05/22/2016 This is a 55-year-old gentleman who was seen yesterday in consultation. He just recently had right knee surgery done by one of the physicians [facility] at [facility]. The patient developed chest pain while he was sitting in his lazy boy came to the emergency room to be evaluated. He also had some shortness of breath. He was found to have pulmonary embolism. The patient's currently on IV heparin. The patient's feeling better. Could be discharged home today. His insurance is being checked for whether or not he is a candidate for one of the factor X a inhibitors. Ex I did add Singulair for his ALLERGIES yesterday. Objective - Vital Signs Vital signs: Vital Signs Temp 96.9 F L 05/22/16 11:00 Pulse 77 05/22/16 11:00 Resp 18 05/22/16 11:00 BP 117/59 05/22/16 11:00 Pulse Ox 96 05/22/16 09:13 Intake & Output 05/21/16 05/22/16 05/22/16 18:59 06:59 18:59 Intake Total 1302.418 551.971 Output Total 1150 Balance 1302.418 -1150 551.971 Weight 96.4 kg Intake: IV 160 Sodium Chloride 0.9% 1, 160 000 ml @ 20 mls/hr IV . Q24H [facility] Rx#:[id number] Intake, IV Titration 246.418 197.971 Amount Heparin Sodium,Porcine/ 246.418 197.971 D5w Pmx 25,000 unit In Dextrose/Water 1 500ml. bag @ 18 UNITS/KG/HR 32. 65 mls/hr IV .[id number] [facility] Rx#:[id number] Oral [id number] [id number] Output: Urine 1150 Other: Voiding Method Urinal Urinal Urinal - Exam No acute distress, oriented 3. HEENT examination is grossly unremarkable. Mucous membranes are moist. No oral lesions. Supple. Full range of motion. No adenopathy Cardio vascular examination reveals regular rhythm rate. S1-S2 normal. No murmur. No tachycardia. Lungs reveal clear breath sounds. No wheezes or rhonchi. No crackles. Abdomen soft bowel sounds are heard. Extremities are intact. - Labs CBC & Chem 7: 05/22/16 05:37 01/05/17 05:37 Labs: Abnormal Lab Results - Last 24 Hours (Table) 05/21/16 05/22/16 05/22/16 Range/Units 11:45 05:37 05:37 RBC 4.26 L (4.30-5.90) m/uL Plt Count 533 H (150-450) k/uL APTT 56.5 H (22.0-30.0) sec Glucose 135 H (74-99) mg/dL 05/22/16 Range/Units 05:37 RBC (4.30-5.90) m/uL Plt Count (150-450) k/uL APTT 50.9 H (22.0-30.0) sec Glucose (74-99) mg/dL Assessment and Plan (1) Pulmonary embolism Status: Acute (2) Osteoarthritis of right knee Status: Acute (3) S/P total knee arthroplasty Status: Acute (4) Sinusitis Status: Acute Plan: Plan The patient should be treated for 3 months. This is a provoked a blood clot given the recent history of a right knee surgery. The patient should be treated with was a new factor X a inhibitor such as Eliquis or Xarelto. The patient otherwise is doing recently well. I'll look at his labs his medications and his x-rays. I will see him back in the office. In addition, the patient will have some Singulair added to his regimen for ALLERGIES. He needs a follow-up computed tomography scan in about 8-10 weeks just to make sure the clot has dissipated. Plan dated 05/22/2016 The patient could be discharged home. Mole on the primary to make a final decision. The patient will follow me in the office. We'll treat her for a period of 3 months. He'll have a follow-up CAT scan in about 8-10 weeks after his initial CAT scan. Initial recommendations suggestions are forthcoming. Labs x-rays medications are reviewed. Time with Patient: Less than 30
[2016-05-22] MEDS ORDERED: APIXABAN 5 MG TAB PO SCH (13:30)
--- NOTE | 2016-05-22 14:39 | P.PN ---
Subjective Principal diagnosis: PE This is a 55-year-old gentleman with no prior documented history of hypertension, no diabetes, no hyperlipidemia, nonsmoker, who underwent right knee surgery on May 05. According to the patient, Thursday evening he developed a severe sudden onset of left-sided chest pain with associated shortness of breath. He states that the symptoms subsided, and he did not think any more about it. Thursday evening around the same time he again developed the same symptoms. The patient had an appointment with Dr. Houston for follow-up yesterday, he mentioned these symptoms to him, was advised to go and have a CTA of the chest performed. CTA of the chest revealed pulmonary embolism present in the right lower lobe. Findings in the left lower lobe may represent and AV malformation follow-up was recommended. Ascending aortic aneurysm measured 4.2 cm. Venous duplex study negative for DVT. Patient was initiated on IV heparin, continues to be on IV heparin at this time. An echocardiogram with Doppler study was performed revealed an ejection fraction of 60-65%. RVSP normal. IV heparin will be discontinued today and the patient will be started on Eliquis 10 mg by mouth twice a day for one week then 5 mg by mouth twice a day. He may be able to be discharged home today from cardiology' s perspective, a follow-up appointment will be made with Dr. Larsen in the office post discharge. Objective - Vital Signs Vital signs: Vital Signs Temp 96.9 F L 05/22/16 11:00 Pulse 77 05/22/16 11:00 Resp 18 05/22/16 11:00 BP 117/59 05/22/16 11:00 Pulse Ox 96 05/22/16 09:13 Intake & Output 05/21/16 05/22/16 05/22/16 18:59 06:59 18:59 Intake Total 1302.418 773.971 Output Total 1150 460 Balance 1302.418 -1150 313.971 Weight 96.4 kg Intake: IV 160 Sodium Chloride 0.9% 1, 160 000 ml @ 20 mls/hr IV . Q24H [facility] Rx#:[id number] Intake, IV Titration 246.418 197.971 Amount Heparin Sodium,Porcine/ 246.418 197.971 D5w Pmx 25,000 unit In Dextrose/Water 1 500ml. bag @ 18 UNITS/KG/HR 32. 65 mls/hr IV .[id number] [facility] Rx#:[id number] Oral [id number] Output: Urine 1150 460 Other: Voiding Method Urinal Urinal Urinal - Exam PHYSICAL EXAMINATION: HEENT: Head is atraumatic, normocephalic. Pupils equal, round. Neck is supple. There is no elevated jugular venous pressure. HEART EXAMINATION: Heart S1, S2 normal. No murmur or gallop heard. CHEST EXAMINATION: Lungs are clear to auscultation and precussion. No chest wall tenderness is noted on palpation or with deep breathing. ABDOMEN: Soft, nontender. Bowel sounds are heard. No organomegaly noted. EXTREMITIES: 2+ peripheral pulses with no evidence of peripheral edema and no calf tenderness noted. NEUROLOGIC patient is awake, alert and oriented -3. . - Labs CBC & Chem 7: 05/22/16 05:37 05/22/16 05:37 Labs: Abnormal Lab Results - Last 24 Hours (Table) 05/22/16 05/22/16 05/22/16 Range/Units 05:37 05:37 05:37 RBC 4.26 L (4.30-5.90) m/uL Plt Count 533 H (150-450) k/uL APTT 50.9 H (22.0-30.0) sec Glucose 135 H (74-99) mg/dL Assessment and Plan Plan: Assessment and plan # 1 acute pulmonary embolism, patient currently on IV heparin. #2 status post total right knee arthroplasty on May 05. Plan From cardiology's perspective, we will discontinue IV heparin, start the patient on Eliquis 10 mg one tablet by mouth twice a day for one week, then decrease to 5 mg by mouth twice a day. Follow-up appointment will be made with Dr. Larsen in the office in 2-3 weeks post discharge. DNP note has been reviewed, I agree with a documented findings and plan of care. Patient was seen and examined.
--- NOTE | 2016-05-23 13:15 | DS ---
DATE OF ADMISSION: 05/20/2016 DATE OF DISCHARGE: 05/22/2016 DATE OF SERVICE: 05/22/2016 FINAL DIAGNOSES: 1. Acute bilateral pulmonary embolism, was on IV heparin. 2. Heparin monitoring. 3. History of recent right total knee arthroplasty. 4. History of degenerative joint disease. 5. Hyperlipidemia. 6. History of pneumonia. 7. History of hernia repair, umbilical. 8. Anemia, normocytic anemia of chronic disease. 9. Increased platelets. 10. Increased random blood sugar. 11. Ascending aortic aneurysm 4.2 cm. DISCHARGE DISPOSITION: The patient will be discharged in a stable condition with guarded prognosis. HISTORY OF PRESENT ILLNESS: This 55-year-old gentleman with a past medical history of multiple medical problems admitted with chest pain, shortness of breath and pulmonary embolus diagnosed on CAT scan. Patient was treated symptomatically. Patient follows with Dr. Soto in the outpatient setting. The patient recently had a knee surgery on the right. The patient was treated with IV heparin and Dr. Mckinney was consulted. The patient improved significantly. Orthopedics also will follow the patient closely. Lab hig[place], platelets were 533 and glucose 135. Other labs are within normal limits. A 2-D echo with Doppler was also done, which showed ejection fraction of 60% to 65% and aortic root dilatation of 4.5 cm, outpatient followup suggested. On exam, vitals are stable. CARDIOVASCULAR: S1 and S2, muffled. RESPIRATORY; No rhonchi, no crackles. ABDOMEN: Soft. NERVOUS SYSTEM: No focal deficits. LEGS: Status post surgery. DISCHARGE ADVICE: 1. Diet is cardiac. 2. Activity limited until followup. 3. Follow up with Dr. Soto in 2 to 3 days. 4. Follow up with Dr. Mckinney as advised. 5. Follow up with Dr. Larsen as advised, Cardiology. 6. Follow up with orthopedic surgery as recommended. MEDICATIONS: 1. Eliquis 5 mg p.o. b.i.d. for at least 6 months. 2. Colace 100 mg p.o. t.i.d. p.r.n. for constipation. 3. Hydrocodone 7.5 q.6 p.r.n. 4. Singulair 10 mg q.h.s. 5. Protonix 40 mg daily. Pain medication to continue as previously.
== END 2016-05-22 14:52 | disposition home health service (06) | DRG 176 ==
LOC: EC 17:23 → 6SEL 19:58
PROVIDERS: ADMIT Internal Medicine; ATTEND Internal Medicine
DX: I26.99 Other pulmonary embolism without acute cor pulmonale (principal); I71.2 Thoracic aortic aneurysm, without rupture; E78.00 Pure hypercholesterolemia, unspecified; D64.9 Anemia, unspecified; E78.5 Hyperlipidemia, unspecified; J02.9 Acute pharyngitis, unspecified; Z87.01 Personal history of pneumonia (recurrent); Z96.651 Presence of right artificial knee joint; Z79.82 Long term (current) use of aspirin; Z79.899 Other long term (current) drug therapy
CPT/HCPCS: 36415; 71275; 80048; 80053; 82550; 82553; 83735; 84484; 85025; 85610; 85730; 93306; 93965; 93970; 94760; 96376; 99284

== ENCOUNTER → 2016-05-20 | Outpatient (CLI) | payer BC ==
--- NOTE | 2016-05-20 16:44 | US ---
EXAMINATION TYPE: US venous doppler duplex LE BI DATE OF EXAM: 05/20/2016 4:20 PM COMPARISON: NONE CLINICAL HISTORY: Right total knee replacement, right leg pain, chest pain. SIDE PERFORMED: VESSELS IMAGED: External Iliac Vein (EIV) Common Femoral Vein Deep Femoral Vein Greater Saphenous Vein * Femoral Vein Popliteal Vein Small Saphenous Vein * Proximal Calf Veins (* superficial vessels) Right Leg: Negative for DVT Left Leg: Negative for DVT TECHNOLOGIST IMPRESSION: GSV and PTV also scanned per order. Negative as well. IMPRESSION: 1. Negative lower extremity ultrasound for deep venous thrombosis.
--- NOTE | 2016-05-20 17:53 | CT ---
"EXAMINATION TYPE: CT angio chest DATE OF EXAM: 05/20/2016 5:00 PM COMPARISON: Prior exam CT chest 30 October 2009 HISTORY: Left sided chest pain following recent knee replacement. CT DLP: 582.00 mGycm Automated exposure control for dose reduction was used. CONTRAST: CTA scan of the thorax is performed with IV Contrast, patient injected with 100 mL of Omnipaque 350, pulmonary embolism protocol. MIP images are created and reviewed. 3D reconstructed images are creat ed on an independent workstation and reviewed. FINDINGS: LUNGS: The lungs are remarkable for a tubular focus along the major fissure on the right, axial image s 63 through 61, this is thought to been present on previous exam but somewhat more conspicuous. Nod ular density in the left lower lobe measures approximately 1.4 cm and shows irregular margins. There is a suggestion of a draining vein and feeding artery. There is no pleural effusion or pneumothorax s een. The tracheobronchial tree is patent. AORTA: Ascending aorta is dilated at 4.2 cm at the level of the aortic root MEDIASTINUM: There is satisfactory enhancement of the pulmonary artery and its branches, there is CT evidence for pulmonary embolism. Abnormal luminal filling defect present within segmental branches i n the right lower lobe There are no greater than 1 cm hilar or mediastinal lymph nodes. No pericard ial effusion is seen. OTHER: No additional significant abnormality is seen. IMPRESSION: PULMONARY EMBOLISM IS PRESENT IN THE RIGHT LOWER LOBE. FINDINGS IN THE LEFT LOWER LOBE MAY REPRESENT AN ARTERIOVENOUS MALFORMATION. FOLLOW-UP IS RECOMMENDED. ASCENDING AORTIC ANEURYSM, FOLLOW-UP RECOMME NDED. A Red message has been communicated to Gino Barron MD via the [employer] | Critical Result sys tem on 05/20/2016 5:21 PM, Message ID [id number]."
== END | disposition home or self-care (01) ==
LOC: RADCTMAIN 14:57
PROVIDERS: ATTEND Orthopaedic Surgery
DX: M25.561 Pain in right knee (principal); I26.99 Other pulmonary embolism without acute cor pulmonale; Z96.651 Presence of right artificial knee joint
CPT/HCPCS: 93970; 71275; Q9967; 93965

== ENCOUNTER → 2016-08-19 | Outpatient (CLI) | payer BC ==
--- NOTE | 2016-08-19 11:47 | CT ---
EXAMINATION TYPE: CT angio chest DATE OF EXAM: 08/19/2016 11:34 AM COMPARISON: 05/20/2016 and 04/10/2009. HISTORY: 56-year-old male follow-up PE TECHNIQUE: Contiguous axial scanning of the chest performed with IV Contrast, patient injected with 1 00 ml mL of Omnipaque 350. Coronal/sagittal MIP reconstructions performed. CT DLP: 682 mGycm Automated exposure control for dose reduction was used. FINDINGS: The heart is upper limits of normal in size without pericardial effusion. Ascending aorta remains ectatic measuring 3.6 cm. Conventional branching anatomy. There is large caliber to the main right and left pulmonary arteries and isn't 2.7 and 2.6 cm, respec tively, suggesting underlying pulmonary arterial hypertension. There has been interval clearance of previously seen embolic material within the right upper and righ t lower lobe. Scattered nonenlarged mediastinal lymph nodes. No thoracic lymphadenopathy. There is a 1.1 cm irregular nodular density along the posterior left lower lobe, stable from 2008. Th ere is a suggestion of a tiny 2 mm feeding pulmonary artery and a small draining vein to this lesion. Again, a simple AV malformation is suspected. No consolidation or pleural effusion. There is low density of the hepatic parenchyma suggesting underlying fatty infiltration. Correlate wi th LFTs, lipid profile, and patient risk factors. Bones: Mild multilevel endplate spondylosis. IMPRESSION: 1. CORRELATE FOR POSSIBLE UNDERLYING PULMONARY ARTERIAL HYPERTENSION. THE PREVIOUS RIGHT-SIDED EMBOLI HAVE CLEARED IN THE INTERVAL. 2. A 1.1 CM IRREGULAR NODULE POSTERIOR LEFT LOWER LOBE, STABLE DATING BACK TO 2008. THIS MAY REPRESEN T A THROMBOSED/PARTIALLY THROMBOSED SIMPLE PULMONARY AVM. THE FEEDING ARTERY IS TINY MEASURING 2 MM. 3. ECTATIC ASCENDING AORTA (3.6 CM).
== END | disposition home or self-care (01) ==
LOC: RADCTMAIN 10:47
PROVIDERS: ATTEND Family Medicine
DX: I77.810 Thoracic aortic ectasia (principal); R91.1 Solitary pulmonary nodule
CPT/HCPCS: 71275; Q9967

== ENCOUNTER → 2016-09-03 | Outpatient (CLI) | payer BC ==
[2016-09-05 12:27] LABS: Protein C (Activity) 119 % (70 - 130)
[2016-09-05 12:28] LABS: Free Protein S Antigen 109 % (57 - 171)
== END | disposition home or self-care (01) ==
LOC: LABWHC1 15:04
PROVIDERS: ATTEND Internal Medicine
DX: I74.9 Embolism and thrombosis of unspecified artery (principal)
CPT/HCPCS: 36415; 81240; 81241; 81291; 83090; 85300; 85303; 85306; 85613; 85730

== ENCOUNTER → 2017-11-06 | Outpatient (CLI) | payer BC ==
[2017-11-06 08:11] LABS: Basophils % (A) 1 %; Eosinophils # (A) 0.2 k/uL (0-0.7); Eosinophils % (A) 3 %; HCT 47.7 % (39.0-53.0); HGB 15.7 gm/dL (13.0-17.5); Lymphocytes # (A) 2.6 k/uL (1.0-4.8); Lymphocytes % (A) 39 %; MCH 30.6 pg (25.0-35.0); MCHC 32.9 g/dL (31.0-37.0); Mean Platelet Volume 7.5; Monocytes # (A) 0.6 k/uL (0-1.0); Monocytes % (A) 10 %; Neutrophils # (A) 2.9 k/uL (1.3-7.7); Neutrophils % (A) 45 %; Platelet Count 260 k/uL (150-450); RBC 5.12 m/uL (4.30-5.90); WBC 6.5 k/uL (3.8-10.6)
[2017-11-06 09:40] LABS: ALT 32 U/L (21-72); AST 21 U/L (17-59); Albumin 4.2 g/dL (3.5-5.0); Alkaline Phosphatase 66 U/L (38-126); Anion Gap 9 mmol/L; Blood Urea Nitrogen 18 mg/dL (9-20); Calcium 9.7 mg/dL (8.4-10.2); Carbon Dioxide 28 mmol/L (22-30); Chloride 104 mmol/L (98-107); Cholesterol 205 mg/dL (<200); Glucose 129 mg/dL (74-99); HDL Cholesterol 46 mg/dL (40-60); LDL Cholesterol,Calculated 141 mg/dL (0-99); Potassium 4.7 mmol/L (3.5-5.1); Sodium 141 mmol/L (137-145); Total Bilirubin 0.8 mg/dL (0.2-1.3); Total Protein 6.9 g/dL (6.3-8.2); Triglycerides 91 mg/dL (<150)
[2017-11-06 10:06] LABS: Prostate Specific Antigen 0.73 ng/mL (0.00-4.00)
[2017-11-06 18:32] LABS: Hemoglobin A1C 6.7 % (4.0-6.0)
== END | disposition home or self-care (01) ==
LOC: LABWHC1 07:46
PROVIDERS: ATTEND Family Medicine
DX: Z00.01 Encounter for general adult medical examination with abnormal findings (principal); E11.9 Type 2 diabetes mellitus without complications; N40.1 Benign prostatic hyperplasia with lower urinary tract symptoms
CPT/HCPCS: 36415; 80053; 80061; 83036; 84153; 85025

== ENCOUNTER → 2017-12-16 | Outpatient (CLI) | payer BC ==
--- NOTE | 2017-12-16 10:10 | CT ---
EXAMINATION TYPE: CT chest w con DATE OF EXAM: 12/16/2017 COMPARISON: CTA chest August 19, 2016 and older studies HISTORY: Thoracic aortic aneurysm progress study. Automated Exposure Control for Dose Reduction was Utilized. TECHNIQUE: CT scan of the thorax is performed following with IV Contrast, patient injected with 100 mL of Isovue 300. FINDINGS: LUNGS: There is stable 6 x 5 mm groundglass nodule right midlung axial image 25 appears to correspond to interlobar fissure on coronal images but is presumed benign. There is stable posterior 1.1 cm nod ule left lower lobe axial image 36 unchanged from 2009 and is best presumed benign, possible feeding vessel axial image 36 noted medial aspect. No new nodules or masses are present. No pleural effusion or pneumothorax is seen. MEDIASTINUM: There are no greater than 1 cm new hilar or mediastinal lymph nodes. Persistent prominen t left hilar lymph nodes coronal image 60 and axial image 24. No cardiomegaly or pericardial effusion is seen. Stable 3.5 cm borderline aneurysmal changes in the aorta axial image 22. Adjacent pulmonar y artery at bifurcation measures 3.9 cm, CT findings consistent with underlying pulmonary artery hype rtension. OTHER: Levoconvex scoliosis centered in the upper thoracic spine is redemonstrated. Moderate multilev el spurring to thoracic spine is seen. IMPRESSION: 1. Ectasia of ascending aorta up to 3.5 cm on current study, no significant change from most recent C T.
== END | disposition home or self-care (01) ==
LOC: RADCTMAIN 09:18
PROVIDERS: ATTEND Internal Medicine Cardiovascular Disease
DX: I77.810 Thoracic aortic ectasia (principal)
CPT/HCPCS: 71260; Q9967

== ENCOUNTER → 2018-08-12 | Outpatient (CLI) | payer BC ==
--- NOTE | 2018-08-12 08:32 | CT ---
EXAMINATION TYPE: CT sinus wo con DATE OF EXAM: 08/12/2018 COMPARISON: None HISTORY: 58-year-old male chronic cough and drainage, Chronic sinusitis CT DLP: 635.1 mGycm Automated exposure control for dose reduction was used. TECHNIQUE: Noncontrast axial views of the paranasal sinuses were obtained. Coronal reconstructions pe rformed. FINDINGS: PARANASAL SINUSES: There has been prior medial maxillary antrectomies. There is mild mucosal thickening along the floor of the right maxillary sinus, a 1.4 cm polyp or muco vale retention cyst along the floor of the left maxillary sinus with additional mild mucosal thickenin g and small amount of layering fluid inferiorly. Opacification of middle ethmoid air cells on both sides. The frontal sinuses are hypoplastic. Sphenoid sinuses well pneumatized. Reactive arlet- osteogenesis is not seen. There is no destruction of the osseous weston of the paranasal sinuses. THE NASAL CAVITY: The osteomeatal complexes are widely patent due to the prior surgery. The nasal septum shows no significant deviation. The imaged brain and orbits are normal in appearance. Mastoid air cells and middle ear cavities are well pneumatized. Reformatted images confirm above findings. IMPRESSION: Prior bilateral medial maxillary antrectomies with residual mild to moderate chronic maxillary and et hmoid sinus disease. 1.4 cm polyp or mucosal retention cyst along the floor of the left maxillary sin us. Small amount of layering fluid here could represent a superimposed acute sinusitis.
== END | disposition home or self-care (01) ==
LOC: RADCTMAIN 07:26
PROVIDERS: ATTEND Otolaryngology
DX: J33.8 Other polyp of sinus (principal); J34.89 Other specified disorders of nose and nasal sinuses; J32.9 Chronic sinusitis, unspecified
CPT/HCPCS: 70486

== ENCOUNTER 2020-03-26 18:16 | Emergency (ER) | payer BC ==
[2020-03-26 18:24] VITALS: RESP 18
--- NOTE | 2020-03-26 19:15 | XR ---
EXAMINATION TYPE: XR chest 2V DATE OF EXAM: 03/26/2020 COMPARISON: 04/26/2019 HISTORY: Chest pain. Cough TECHNIQUE: FINDINGS: There is some mild linear density at the left lung base. The right lung is clear. There is no heart failure. There are no hilar masses. Heart size is normal. Bony thorax is intact. The pulmona ry vascularity is normal. IMPRESSION: There is some mild scarring and subsegmental atelectasis left lung base slightly increase d compared to old exam. No heart failure.
--- NOTE | 2020-03-26 20:09 | ED ---
Fever HPI - General Chief Complaint: Fever Stated Complaint: fever/chest pain/abd & back pain Time Seen by Provider: 03/26/20 19:50 Source: patient, RN notes reviewed Mode of arrival: ambulatory Limitations: no limitations - History of Present Illness Initial Comments: This is a 59-year-old male states she's had the onset today of some right-sided abdominal flank pain radiates up into his chest she's had sinus congestion cough found have a fever 101.3. He has nausea vomiting earlier today. This all started around noon. He thought he was having some ALLERGY problems. He does have a nonproductive cough. He works as a schoolteacher. Complaint: fever, malaise - Related Data Home Medications Medication Instructions Recorded Confirmed Aspirin EC [Ecotrin Low Dose] 81 mg PO DAILY 03/26/20 03/26/20 Cetirizine HCl [Zyrtec] 10 mg PO DAILY 03/26/20 03/26/20 Cholecalciferol [Vitamin D3 (25 1,000 unit PO DAILY 03/26/20 03/26/20 Mcg = 1000 Iu)] Glucosam/Matt-Msm1/C/Ari/Bosw 1 tab PO DAILY 03/26/20 03/26/20 [Glucosamine-Chondroitin Tablet] Ibuprofen [Motrin Ib] 600 mg PO Q8H PRN 03/26/20 03/26/20 [place]-3 Fatty Acids/Fish Oil [Fish 1 cap PO DAILY 03/26/20 03/26/20 Oil 1,000 mg Softgel] Ubidecarenone [Co Q-10] 100 mg PO DAILY 03/26/20 03/26/20 Previous Rx's Medication Instructions Recorded Montelukast [Singulair] 10 mg PO HS #30 tab 05/22/16 Azithromycin [Zithromax Z-pack (6 250 mg PO DIRECTED 5 Days #6 tab 03/26/20 tabs)] Allergies Allergy/AdvReac Type Severity Reaction Status Date / Time Iodinated Contrast Media Allergy Wheezing Verified 03/26/20 21:12 shellfish derived [Shellfish] Allergy Anaphylaxis Verified 03/26/20 21:12 Review of Systems ROS Statement: Those systems with pertinent positive or pertinent negative responses have been documented in the HPI. ROS Other: All systems not noted in ROS Statement are negative. Past Medical History Past Medical History: Hyperlipidemia, Osteoarthritis (OA), Pneumonia Additional Past Medical History / Comment(s): 04/09/15 Pt presented to [facility] ER with cough, chest congestion, loss of voice (raspy). He saw his PCP and was placed on ABX and Medrol but has gotten no better- he feels worse. He has a sore throat and occasonal sweats and chills. He is being admitted with clinical impression of R lower lobe pneumonia, dyspnea and sinusitis. 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 History of Any Multi-Drug Resistant Organisms: None Reported Past Surgical History: Hernia Repair, Orthopedic Surgery Additional Past Surgical History / Comment(s): Umbilical hernia repair, R knee arthroscopy, fibroid tumor removed from L lower back, bronchoscopy 2008, sinuplasty with polypectomy. right total knee replacement 05/05/16 Past Anesthesia/Blood Transfusion Reactions: Motion Sickness, Postoperative Nausea & Vomiting (PONV) Past Psychological History: No Psychological Hx Reported Smoking Status: Never smoker Past Alcohol Use History: None Reported Past Drug Use History: None Reported - Past Family History Brother(s) Family Medical History: No Reported History Sister(s) Family Medical History: No Reported History Father Family Medical History: Renal Disease Additional Family Medical History / Comment(s): Father recently diagnosed with hydrocephalis (NPH). He is on peritoneal dialysis. He is 76 yrs old. Mother Family Medical History: No Reported History Additional Family Medical History / Comment(s): Mother is healthy and is 75 yrs. old. General Exam - General Exam Comments Initial Comments: This is a well-developed well-nourished awake alert oriented 3 male Limitations: no limitations General appearance: alert, in no apparent distress Head exam: Present: atraumatic, normocephalic, normal inspection Eye exam: Present: normal appearance, PERRL, EOMI. Absent: scleral icterus, conjunctival injection, periorbital swelling ENT exam: Present: normal exam, mucous membranes moist Neck exam: Present: normal inspection. Absent: tenderness, meningismus, lymphadenopathy Respiratory exam: Present: normal lung sounds bilaterally. Absent: respiratory distress, wheezes, rales, rhonchi, stridor Cardiovascular Exam: Present: regular rate, normal rhythm, normal heart sounds. Absent: systolic murmur, diastolic murmur, rubs, gallop, clicks GI/Abdominal exam: Present: soft, normal bowel sounds. Absent: distended, te nderness, guarding, rebound, rigid Extremities exam: Present: normal inspection, full ROM, normal capillary refill. Absent: tenderness, pedal edema, joint swelling, calf tenderness Back exam: Present: normal inspection Neurological exam: Present: alert, oriented X3, CN II-XII intact Psychiatric exam: Present: normal affect, normal mood Skin exam: Present: warm, dry, intact, normal color. Absent: rash Course Vital Signs 03/26/20 03/26/20 03/26/20 18:21 20:14 20:24 Temperature 101.3 F H 99.7 F H Pulse Rate 88 80 Respiratory 18 18 18 Rate Blood Pressure 98/64 137/87 O2 Sat by Pulse 95 94 L Oximetry Medical Decision Making - Medical Decision Making I did discuss the findings the patient he is influenza and Covid 19 negative patient does demonstrate elevated white blood cell count left shift likely infectious etiology patient will be placed up her medication is a follow-up with his doctor return when necessary he is in agreement with this. - Lab Data Result diagrams: 03/26/20 20:06 03/26/20 20:06 Lab Results 03/26/20 03/26/20 03/26/20 Range/Units 20:06 20:06 20:06 WBC 16.1 H (3.8-10.6) k/uL RBC 4.86 (4.30-5.90) m/uL Hgb 15.3 (13.0-17.5) gm/dL Hct 45.5 (39.0-53.0) % MCV 93.6 (80.0-100.0) fL MCH 31.6 (25.0-35.0) pg MCHC 33.7 (31.0-37.0) g/dL RDW 12.5 (11.5-15.5) % Plt Count 266 (150-450) k/uL Neutrophils % 80 % Lymphocytes % 10 % Monocytes % 7 % Eosinophils % 1 % Basophils % 0 % Neutrophils # 12.9 H (1.3-7.7) k/uL Lymphocytes # 1.6 (1.0-4.8) k/uL Monocytes # 1.2 H (0-1.0) k/uL Eosinophils # 0.2 (0-0.7) k/uL Basophils # 0.1 (0-0.2) k/uL Sodium 136 L (137-145) mmol/L Potassium 4.2 (3.5-5.1) mmol/L Chloride 104 (98-107) mmol/L Carbon Dioxide 25 (22-30) mmol/L Anion Gap 7 mmol/L BUN 15 (9-20) mg/dL Creatinine 0.98 (0.66-1.25) mg/dL Est GFR (CKD-EPI)AfAm >90 (>60 ml/min/1.73 sqM) Est GFR (CKD-EPI)NonAf 84 (>60 ml/min/1.73 sqM) Glucose 153 H (74-99) mg/dL Plasma Lactic Acid Ty (0.7-2.0) mmol/L Calcium 9.7 (8.4-10.2) mg/dL Magnesium 1.9 (1.6-2.3) mg/dL Total Bilirubin 0.7 (0.2-1.3) mg/dL AST 17 (17-59) U/L ALT 16 (4-49) U/L Alkaline Phosphatase 74 (38-126) U/L Creatine Kinase 68 (55-170) U/L Troponin I (0.000-0.034) ng/mL Total Protein 7.3 (6.3-8.2) g/dL Albumin 4.4 (3.5-5.0) g/dL Urine Color Yellow Urine Appearance Clear (Clear) Urine pH 5.5 (5.0-8.0) Ur Specific Etta 1.031 (1.001-1.035) Urine Protein Trace H (Negative) Urine Glucose (UA) 1+ H (Negative) Urine Ketones Negative (Negative) Urine Blood Negative (Negative) Urine Nitrite Negative (Negative) Urine Bilirubin Negative (Negative) Urine Urobilinogen <2.0 (<2.0) mg/dL Ur Leukocyte Esterase Negative (Negative) Coronavirus (PCR) (Not Detectd) Influenza Type A RNA (Not Detectd) Influenza Type B (PCR) (Not Detectd) 03/26/20 03/26/20 03/26/20 Range/Units 20:06 20:06 20:06 WBC (3.8-10.6) k/uL RBC (4.30-5.90) m/uL Hgb (13.0-17.5) gm/dL Hct (39.0-53.0) % MCV (80.0-100.0) fL MCH (25.0-35.0) pg MCHC (31.0-37.0) g/dL RDW (11.5-15.5) % Plt Count (150-450) k/uL Neutrophils % % Lymphocytes % % Monocytes % % Eosinophils % % Basophils % % Neutrophils # (1.3-7.7) k/uL Lymphocytes # (1.0-4.8) k/uL Monocytes # (0-1.0) k/uL Eosinophils # (0-0.7) k/uL Basophils # (0-0.2) k/uL Sodium (137-145) mmol/L Potassium (3.5-5.1) mmol/L Chloride (98-107) mmol/L Carbon Dioxide (22-30) mmol/L Anion Gap mmol/L BUN (9-20) mg/dL Creatinine (0.66-1.25) mg/dL Est GFR (CKD-EPI)AfAm (>60 ml/min/1.73 sqM) Est GFR (CKD-EPI)NonAf (>60 ml/min/1.73 sqM) Glucose (74-99) mg/dL Plasma Lactic Acid Ty 1.7 (0.7-2.0) mmol/L Calcium (8.4-10.2) mg/dL Magnesium (1.6-2.3) mg/dL Total Bilirubin (0.2-1.3) mg/dL AST (17-59) U/L ALT (4-49) U/L Alkaline Phosphatase (38-126) U/L Creatine Kinase (55-170) U/L Troponin I <0.012 (0.000-0.034) ng/mL Total Protein (6.3-8.2) g/dL Albumin (3.5-5.0) g/dL Urine Color Urine Appearance (Clear) Urine pH (5.0-8.0) Ur Specific Etta (1.001-1.035) Urine Protein (Negative) Urine Glucose (UA) (Negative) Urine Ketones (Negative) Urine Blood (Negative) Urine Nitrite (Negative) Urine Bilirubin (Negative) Urine Urobilinogen (<2.0) mg/dL Ur Leukocyte Esterase (Negative) Coronavirus (PCR) (Not Detectd) Influenza Type A RNA Not Detected (Not Detectd) Influenza Type B (PCR) Not Detected (Not Detectd) 03/26/20 Range/Units 20:06 WBC (3.8-10.6) k/uL RBC (4.30-5.90) m/uL Hgb (13.0-17.5) gm/dL Hct (39.0-53.0) % MCV (80.0-100.0) fL MCH (25.0-35.0) pg MCHC (31.0-37.0) g/dL RDW (11.5-15.5) % Plt Count (150-450) k/uL Neutrophils % % Lymphocytes % % Monocytes % % Eosinophils % % Basophils % % Neutrophils # (1.3-7.7) k/uL Lymphocytes # (1.0-4.8) k/uL Monocytes # (0-1.0) k/uL Eosinophils # (0-0.7) k/uL Basophils # (0-0.2) k/uL Sodium (137-145) mmol/L Potassium (3.5-5.1) mmol/L Chloride (98-107) mmol/L Carbon Dioxide (22-30) mmol/L Anion Gap mmol/L BUN (9-20) mg/dL Creatinine (0.66-1.25) mg/dL Est GFR (CKD-EPI)AfAm (>60 ml/min/1.73 sqM) Est GFR (CKD-EPI)NonAf (>60 ml/min/1.73 sqM) Glucose (74-99) mg/dL Plasma Lactic Acid Ty (0.7-2.0) mmol/L Calcium (8.4-10.2) mg/dL Magnesium (1.6-2.3) mg/dL Total Bilirubin (0.2-1.3) mg/dL AST (17-59) U/L ALT (4-49) U/L Alkaline Phosphatase (38-126) U/L Creatine Kinase (55-170) U/L Troponin I (0.000-0.034) ng/mL Total Protein (6.3-8.2) g/dL Albumin (3.5-5.0) g/dL Urine Color Urine Appearance (Clear) Urine pH (5.0-8.0) Ur Specific [place] (1.001-1.035) Urine Protein (Negative) Urine Glucose (UA) (Negative) Urine Ketones (Negative) Urine Blood (Negative) Urine Nitrite (Negative) Urine Bilirubin (Negative) Urine Urobilinogen (<2.0) mg/dL Ur Leukocyte Esterase (Negative) Coronavirus (PCR) Not Detected (Not Detectd) Influenza Type A RNA (Not Detectd) Influenza Type B (PCR) (Not Detectd) - EKG Data -: EKG Interpreted by Me EKG shows normal: sinus rhythm EKG Comments: Sinus rhythm 85. Interval 164 QRS 86 QT since QTC 386/459 possible left atrial enlargement no acute ST-T wave changes - Radiology Data Radiology results: report reviewed (I did review the imaging and report evidence of left lower lobe atelectasis. Query infiltrate), image reviewed Disposition Clinical Impression: Left lower lobe pneumonia, Febrile illness, acute, Leukocytosis Disposition: HOME SELF-CARE Condition: Good Instructions (If sedation given, give patient instructions): Fever in Adults (ED), Bacterial Pneumonia (ED) Additional Instructions: Tonight return to work until of this week today is Thursday Prescriptions: Azithromycin [Zithromax Z-pack (6 tabs)] 250 mg PO DIRECTED 5 Days #6 tab Is patient prescribed a controlled substance at d/c from ED?: No Referrals: Michelle Soto III, MD [Primary Care Provider] - 1-2 days
[2020-03-26 20:16] VITALS: BP 137/87; PULSE 80; TEMP 99.7
[2020-03-26 20:25] LABS: Basophils # (A) 0.1 k/uL (0-0.2); Basophils % (A) 0 %; Eosinophils # (A) 0.2 k/uL (0-0.7); Eosinophils % (A) 1 %; HCT 45.5 % (39.0-53.0); HGB 15.3 gm/dL (13.0-17.5); Lymphocytes # (A) 1.6 k/uL (1.0-4.8); Lymphocytes % (A) 10 %; MCH 31.6 pg (25.0-35.0); MCHC 33.7 g/dL (31.0-37.0); MCV 93.6 fL (80.0-100.0); Mean Platelet Volume 8.2; Monocytes # (A) 1.2 k/uL (0-1.0); Monocytes % (A) 7 %; Neutrophils # (A) 12.9 k/uL (1.3-7.7); Neutrophils % (A) 80 %; Platelet Count 266 k/uL (150-450); RBC 4.86 m/uL (4.30-5.90); RDW 12.5 % (11.5-15.5); WBC 16.1 k/uL (3.8-10.6)
[2020-03-26 20:33] LABS: ALT 16 U/L (4-49); AST 17 U/L (17-59); African American GFR (CKD) >90 (>60 ml/min/1.73 sqM); Albumin 4.4 g/dL (3.5-5.0); Alkaline Phosphatase 74 U/L (38-126); Anion Gap 7 mmol/L; Blood Urea Nitrogen 15 mg/dL (9-20); Calcium 9.7 mg/dL (8.4-10.2); Carbon Dioxide 25 mmol/L (22-30); Chloride 104 mmol/L (98-107); Creatine Kinase 68 U/L (55-170); Glucose 153 mg/dL (74-99); Magnesium 1.9 mg/dL (1.6-2.3); Non-African American GFR(CKD) 84 (>60 ml/min/1.73 sqM); Potassium 4.2 mmol/L (3.5-5.1); Sodium 136 mmol/L (137-145); Total Bilirubin 0.7 mg/dL (0.2-1.3); Total Protein 7.3 g/dL (6.3-8.2)
[2020-03-26 20:36] LABS: Appearance,Urine Clear (Clear); Bilirubin,Urine Negative (Negative); Blood,Urine Negative (Negative); Color,Urine Yellow; Glucose,Urine (UA) 1+ (Negative); Ketones,Urine Negative (Negative); Leukocyte Esterase,Urine Negative (Negative); Nitrite,Urine Negative (Negative); PH, Urine 5.5 (5.0-8.0); Protein,Urine Trace (Negative); Specific Gravity,Urine 1.031 (1.001-1.035); Urobilinogen,Urine <2.0 mg/dL (<2.0)
--- NOTE | 2020-03-26 20:58 | XR ---
EXAMINATION TYPE: XR KUB DATE OF EXAM: 03/26/2020 COMPARISON: NONE HISTORY: Right flank pain TECHNIQUE: 2 views upright FINDINGS: There is no sign of intestinal obstruction or pneumoperitoneum. Fecal pattern is normal. Th ere is no evidence of a mass. Lung bases are clear. There are no pathologic calcifications over the k idneys. IMPRESSION: Nonacute abdomen.
[2020-03-26] MEDS ORDERED: cefTRIAXone IN SWFI 1,000 MG/10 ML SYRINGE IVP STA (21:36)
[2020-03-26] MEDS ORDERED: AZITHROMYCIN 500 MG TAB PO STA (21:36)
== END 2020-03-26 22:04 | disposition home or self-care (01) ==
LOC: EC 18:16
DX: J18.9 Pneumonia, unspecified organism (principal); R10.9 Unspecified abdominal pain; E78.5 Hyperlipidemia, unspecified; M19.90 Unspecified osteoarthritis, unspecified site; M19.042 Primary osteoarthritis, left hand; M19.041 Primary osteoarthritis, right hand; M17.0 Bilateral primary osteoarthritis of knee; Z91.041 Radiographic dye allergy status; Z91.013 Allergy to seafood; Z86.69 Personal history of other diseases of the nervous system and sense organs; Z96.651 Presence of right artificial knee joint; Z20.828 Contact with and (suspected) exposure to other viral communicable diseases
CPT/HCPCS: 36415; 93005; 80053; 82550; 83605; 83735; 84484; 85025; 81003; 87502; 87635; 71046; 74018; 99284; 96374; J0696

== ENCOUNTER 2020-03-28 07:11 | Inpatient (IN) | payer BC ==
[2020-03-28] MEDS ORDERED: PANTOPRAZOLE 40 MG/10 ML VIAL IVP STA (07:26)
[2020-03-28] MEDS ORDERED: SODIUM CHLORIDE 0.9% 1,000 ML IV STA (07:26)
[2020-03-28] MEDS ORDERED: ONDANSETRON 4 MG/2 ML VIAL IVP STA (07:26)
--- NOTE | 2020-03-28 07:33 | ED ---
General Adult HPI - General Chief complaint: Abdominal Pain Stated complaint: lower abdominal pain, fever Time Seen by Provider: 03/28/20 07:21 Source: patient, RN notes reviewed Mode of arrival: ambulatory Limitations: no limitations - History of Present Illness Initial comments: Patient is a pleasant 59-year-old male presenting to the emergency Department with complaints of abdominal discomfort. Onset of symptoms was 2 days ago. Patient did have multiple symptoms at that time however symptoms at this time are more complaints of right lower abdominal discomfort. Discomfort is currently rated 5 or 6/10. Patient has had fever and did take Tylenol 2 hours ago. Patient has had nausea. No vomiting. No constipation. Mild loose stools. Patient was recently diagnosed with pneumonia and is on azithromycin. - Related Data Home Medications Medication Instructions Recorded Confirmed Aspirin EC [Ecotrin Low Dose] 81 mg PO DAILY 03/26/20 03/26/20 Cetirizine HCl [Zyrtec] 10 mg PO DAILY 03/26/20 03/26/20 Cholecalciferol [Vitamin D3 (25 1,000 unit PO DAILY 03/26/20 03/26/20 Mcg = 1000 Iu)] Glucosam/Matt-Msm1/C/Ari/Bosw 1 tab PO DAILY 03/26/20 03/26/20 [Glucosamine-Chondroitin Tablet] Ibuprofen [Motrin Ib] 600 mg PO Q8H PRN 03/26/20 03/26/20 [place]-3 Fatty Acids/Fish Oil [Fish 1 cap PO DAILY 03/26/20 03/26/20 Oil 1,000 mg Softgel] Ubidecarenone [Co Q-10] 100 mg PO DAILY 03/26/20 03/26/20 Previous Rx's Medication Instructions Recorded Montelukast [Singulair] 10 mg PO HS #30 tab 05/22/16 Azithromycin [Zithromax Z-pack (6 250 mg PO DIRECTED 5 Days #6 tab 03/26/20 tabs)] Allergies Allergy/AdvReac Type Severity Reaction Status Date / Time Iodinated Contrast Media Allergy Wheezing Verified 03/28/20 07:20 shellfish derived [Shellfish] Allergy Anaphylaxis Verified 03/28/20 07:20 Review of Systems ROS Statement: Those systems with pertinent positive or pertinent negative responses have been documented in the HPI. ROS Other: All systems not noted in ROS Statement are negative. Constitutional: Reports: fever, chills Eyes: Denies: eye pain ENT: Denies: ear pain Respiratory: Denies: dyspnea Cardiovascular: Denies: chest pain Endocrine: Denies: fatigue Gastrointestinal: Reports: abdominal pain, nausea. Denies: vomiting, constipation Genitourinary: Denies: dysuria Musculoskeletal: Denies: back pain Skin: Denies: rash Neurological: Denies: weakness Past Medical History Past Medical History: Hyperlipidemia, Osteoarthritis (OA), Pneumonia Additional Past Medical History / Comment(s): 04/09/15 Pt presented to [facility] ER with cough, chest congestion, loss of voice (raspy). He saw his PCP and was placed on ABX and Medrol but has gotten no better- he feels worse. He has a sore throat and occasonal sweats and chills. He is being admitted with clinical impression of R lower lobe pneumonia, dyspnea and sinusitis. Other HX: Pt states he has had high cholesterol in the past but has never had to take medication for this, ocular migraines that are seasonal, sinus problems, otoscle rosis, pneumonia 2009rare vertigo, NESTOR-no device used, OA of bilateral hands and knees, fx L arm and injury with R ankle damage yrs ago. History of Any Multi-Drug Resistant Organisms: None Reported Past Surgical History: Hernia Repair, Orthopedic Surgery Additional Past Surgical History / Comment(s): Umbilical hernia repair, R knee arthroscopy, fibroid tumor removed from L lower back, bronchoscopy 2008, sinuplasty with polypectomy. right total knee replacement 05/05/16 Past Anesthesia/Blood Transfusion Reactions: Motion Sickness, Postoperative Nausea & Vomiting (PONV) Past Psychological History: No Psychological Hx Reported Smoking Status: Never smoker Past Alcohol Use History: None Reported Past Drug Use History: None Reported - Past Family History Brother(s) Family Medical History: No Reported History Sister(s) Family Medical History: No Reported History Father Family Medical History: Renal Disease Additional Family Medical History / Comment(s): Father recently diagnosed with hydrocephalis (NPH). He is on peritoneal dialysis. He is 76 yrs old. Mother Family Medical History: No Reported History Additional Family Medical History / Comment(s): Mother is healthy and is 75 yrs. old. General Exam Limitations: no limitations General appearance: alert, in no apparent distress Head exam: Present: normocephalic Eye exam: Present: normal appearance Neck exam: Present: normal inspection Respiratory exam: Present: normal lung sounds bilaterally Cardiovascular Exam: Present: regular rate, normal rhythm Expanded Peripheral pulses: 2+: Dorsalis Pedis (R), Dorsalis Pedis (L) GI/Abdominal exam: Present: soft, tenderness (Moderate to severe tenderness right lower quadrant), guarding (Right lower quadrant), normal bowel sounds. Absent: distended, rebound, rigid, pulsatile mass Extremities exam: Present: normal inspection Neurological exam: Present: alert Psychiatric exam: Present: normal affect, normal mood Skin exam: Present: normal color Course Vital Signs 03/28/20 07:14 Temperature 98.8 F Pulse Rate 97 Respiratory 18 Rate Blood Pressure 118/77 O2 Sat by Pulse 95 Oximetry EKG Findings - EKG Comments: EKG Findings:: Normal sinus rhythm at 87. OK 160. QRS 86. QT 382. QTC 459. Left axis. Q waves in lead III and aVF. No acute ST change. Medical Decision Making - Medical Decision Making Patient reevaluated. Discomfort is tolerable at this time. Patient updated on results and plan. - Lab Data Result diagrams: 03/28/20 08:02 03/28/20 08:02 Lab Results 03/28/20 03/28/20 03/28/20 Range/Units 08:02 08:02 08:02 WBC 20.0 H (3.8-10.6) k/uL RBC 4.53 (4.30-5.90) m/uL Hgb 14.3 (13.0-17.5) gm/dL Hct 42.3 (39.0-53.0) % MCV 93.3 (80.0-100.0) fL MCH 31.7 (25.0-35.0) pg MCHC 33.9 (31.0-37.0) g/dL RDW 12.5 (11.5-15.5) % Plt Count 224 (150-450) k/uL MPV 8.1 Neutrophils % 86 % Lymphocytes % 5 % Monocytes % 6 % Eosinophils % 1 % Basophils % 0 % Neutrophils # 17.1 H (1.3-7.7) k/uL Lymphocytes # 1.0 (1.0-4.8) k/uL Monocytes # 1.3 H (0-1.0) k/uL Eosinophils # 0.2 (0-0.7) k/uL Basophils # 0.1 (0-0.2) k/uL PT 10.9 (9.0-12.0) sec INR 1.1 (<1.2) APTT 24.9 (22.0-30.0) sec Sodium 134 L (137-145) mmol/L Potassium 3.8 (3.5-5.1) mmol/L Chloride 102 (98-107) mmol/L Carbon Dioxide 24 (22-30) mmol/L Anion Gap 8 mmol/L BUN 14 (9-20) mg/dL Creatinine 1.02 (0.66-1.25) mg/dL Est GFR (CKD-EPI)AfAm >90 (>60 ml/min/1.73 sqM) Est GFR (CKD-EPI)NonAf 80 (>60 ml/min/1.73 sqM) Glucose 241 H (74-99) mg/dL Plasma Lactic Acid Ty (0.7-2.0) mmol/L Calcium 8.9 (8.4-10.2) mg/dL Total Bilirubin 1.6 H (0.2-1.3) mg/dL AST 16 L (17-59) U/L ALT 12 (4-49) U/L Alkaline Phosphatase 65 (38-126) U/L Total Protein 6.5 (6.3-8.2) g/dL Albumin 3.7 (3.5-5.0) g/dL Amylase <30 L (30-110) U/L Lipase 28 (23-300) U/L Urine Color Urine Appearance (Clear) Urine pH (5.0-8.0) Ur Specific [place] (1.001-1.035) Urine Protein (Negative) Urine Glucose (UA) (Negative) Urine Ketones (Negative) Urine Blood (Negative) Urine Nitrite (Negative) Urine Bilirubin (Negative) Urine Urobilinogen (<2.0) mg/dL Ur Leukocyte Esterase (Negative) Urine RBC (0-5) /hpf Urine WBC (0-5) /hpf Ur Squamous Epith Cells (0-4) /hpf Urine Mucus (None) /hpf 03/28/20 03/28/20 Range/Units 08:02 08:10 WBC (3.8-10.6) k/uL RBC (4.30-5.90) m/uL Hgb (13.0-17.5) gm/dL Hct (39.0-53.0) % MCV (80.0-100.0) fL MCH (25.0-35.0) pg MCHC (31.0-37.0) g/dL RDW (11.5-15.5) % Plt Count (150-450) k/uL MPV Neutrophils % % Lymphocytes % % Monocytes % % Eosinophils % % Basophils % % Neutrophils # (1.3-7.7) k/uL Lymphocytes # (1.0-4.8) k/uL Monocytes # (0-1.0) k/uL Eosinophils # (0-0.7) k/uL Basophils # (0-0.2) k/uL PT (9.0-12.0) sec INR (<1.2) APTT (22.0-30.0) sec Sodium (137-145) mmol/L Potassium (3.5-5.1) mmol/L Chloride (98-107) mmol/L Carbon Dioxide (22-30) mmol/L Anion Gap mmol/L BUN (9-20) mg/dL Creatinine (0.66-1.25) mg/dL Est GFR (CKD-EPI)AfAm (>60 ml/min/1.73 sqM) Est GFR (CKD-EPI)NonAf (>60 ml/min/1.73 sqM) Glucose (74-99) mg/dL Plasma Lactic Acid Ty 2.0 (0.7-2.0) mmol/L Calcium (8.4-10.2) mg/dL Total Bilirubin (0.2-1.3) mg/dL AST (17-59) U/L ALT (4-49) U/L Alkaline Phosphatase (38-126) U/L Total Protein (6.3-8.2) g/dL Albumin (3.5-5.0) g/dL Amylase (30-110) U/L Lipase (23-300) U/L Urine Color Yellow Urine Appearance Clear (Clear) Urine pH 5.5 (5.0-8.0) Ur Specific [place] 1.047 H (1.001-1.035) Urine Protein 1+ H (Negative) Urine Glucose (UA) 4+ H (Negative) Urine Ketones Trace H (Negative) Urine Blood Negative (Negative) Urine Nitrite Negative (Negative) Urine Bilirubin Negative (Negative) Urine Urobilinogen <2.0 (<2.0) mg/dL Ur Leukocyte Esterase Negative (Negative) Urine RBC 1 (0-5) /hpf Urine WBC 4 (0-5) /hpf Ur Squamous Epith Cells 1 (0-4) /hpf Urine Mucus Moderate H (None) /hpf - Radiology Data Radiology results: report reviewed (Computed tomography scan abdomen pelvis concerning for uncomplicated appendicitis) Disposition Clinical Impression: Acute appendicitis Disposition: ADMITTED IP TO THIS HOSP Is patient prescribed a controlled substance at d/c from ED?: No Referrals: Michelle Soto III, MD [Primary Care Provider] - 1-2 days Decision Time: 09:38
[2020-03-28] MEDS ORDERED: methylPREDNISolone SOD SUCCI 125 MG/2 ML VIAL IV STA (07:34)
[2020-03-28] MEDS ORDERED: FAMOTIDINE 20 MG/2 ML VIAL IV STA (07:34)
[2020-03-28] MEDS ORDERED: diphenhydrAMINE 50 MG/ML 1 ML VIAL IVP STA (07:34)
[2020-03-28 08:28] LABS: Basophils # (A) 0.1 k/uL (0-0.2); Basophils % (A) 0 %; Eosinophils # (A) 0.2 k/uL (0-0.7); Eosinophils % (A) 1 %; HCT 42.3 % (39.0-53.0); HGB 14.3 gm/dL (13.0-17.5); Lymphocytes % (A) 5 %; MCH 31.7 pg (25.0-35.0); MCHC 33.9 g/dL (31.0-37.0); MCV 93.3 fL (80.0-100.0); Mean Platelet Volume 8.1; Monocytes # (A) 1.3 k/uL (0-1.0); Monocytes % (A) 6 %; Neutrophils # (A) 17.1 k/uL (1.3-7.7); Neutrophils % (A) 86 %; Platelet Count 224 k/uL (150-450); RBC 4.53 m/uL (4.30-5.90); RDW 12.5 % (11.5-15.5)
[2020-03-28 08:41] LABS: Appearance,Urine Clear (Clear); Bilirubin,Urine Negative (Negative); Blood,Urine Negative (Negative); Color,Urine Yellow; Glucose,Urine (UA) 4+ (Negative); Ketones,Urine Trace (Negative); Leukocyte Esterase,Urine Negative (Negative); Mucus,Urine Moderate /hpf; Nitrite,Urine Negative (Negative); PH, Urine 5.5 (5.0-8.0); Protein,Urine 1+ (Negative); RBC,Urine 1 /hpf (0-5); Squamous Epithelial Cell,Urine 1 /hpf (0-4); Urobilinogen,Urine <2.0 mg/dL (<2.0); WBC,Urine 4 /hpf (0-5)
[2020-03-28 08:41] LABS: INR 1.1 (<1.2); Partial Thromboplastin Time 24.9 sec (22.0-30.0); Prothrombin Time 10.9 sec (9.0-12.0)
[2020-03-28 08:42] LABS: ALT 12 U/L (4-49); AST 16 U/L (17-59); African American GFR (CKD) >90 (>60 ml/min/1.73 sqM); Albumin 3.7 g/dL (3.5-5.0); Alkaline Phosphatase 65 U/L (38-126); Amylase <30 U/L (30-110); Anion Gap 8 mmol/L; Blood Urea Nitrogen 14 mg/dL (9-20); Calcium 8.9 mg/dL (8.4-10.2); Carbon Dioxide 24 mmol/L (22-30); Chloride 102 mmol/L (98-107); Glucose 241 mg/dL (74-99); Lipase 28 U/L (23-300); Non-African American GFR(CKD) 80 (>60 ml/min/1.73 sqM); Potassium 3.8 mmol/L (3.5-5.1); Sodium 134 mmol/L (137-145); Total Bilirubin 1.6 mg/dL (0.2-1.3); Total Protein 6.5 g/dL (6.3-8.2)
[2020-03-28 08:51] LABS: Specific Gravity,Urine 1.047 (1.001-1.035)
--- NOTE | 2020-03-28 08:57 | CT ---
EXAMINATION TYPE: CT abdomen pelvis w con DATE OF EXAM: 03/28/2020 COMPARISON: None HISTORY: RLQ pain, fever CT DLP: 1530.4 mGycm CONTRAST: CT scan of the abdomen and pelvis is performed without Oral Contrast and with IV Contrast, patient in jected with 100 mL of Isovue 300. FINDINGS: LUNG BASES-: No visible nodule. No infiltrate. LIVER/GB: No calcified gallstones. No space occupying hepatic lesion. Biliary tree is of normal ca liber. PANCREAS: No inflammation. No distinct mass. SPLEEN: No splenic enlargement. No lesion seen. Left basilar atelectasis. ADRENALS: No nodule. No thickening. KIDNEYS/BLADDER: No hydronephrosis. No nephrolithiasis. Simple cyst right kidney. Urinary bladder g rossly unremarkable. BOWEL: Dilated and inflamed appendix measuring 1.5 cm. Periappendiceal inflammatory change and fluid without evidence for abscess at this time. Suspect appendicolith at the base of the appendix. Reactiv e wall thickening of several bowel loops. GENITAL ORGANS: No gross abnormality. LYMPH NODES: No greater than 1cm abdominal or pelvic lymph nodes are appreciated. AORTA: No significant abnormality. OSSEOUS STRUCTURES: No significant abnormality is seen. OTHER: No significant additional abnormality is seen. IMPRESSION: 1. The findings are compatible with moderate acute appendicitis without rupture or abscess at this ti me.
[2020-03-28] MEDS ORDERED: HYDROmorphone 0.5 MG/0.5 ML SYRINGE IVP PRN (09:39)
[2020-03-28] MEDS ORDERED: NALOXONE 0.4 MG/ML 1 ML VIAL IV PRN (09:39)
[2020-03-28] MEDS ORDERED: ONDANSETRON 4 MG/2 ML VIAL IVP PRN (09:39)
[2020-03-28] MEDS ORDERED: GABAPENTIN 300 MG CAP PO STA (09:47)
[2020-03-28] MEDS ORDERED: TAMSULOSIN 0.4 MG CAP.ER.24H PO STA (09:47)
[2020-03-28] MEDS ORDERED: AMPICILLIN-SULBACTAM 3 GM in SODIUM CHLORIDE 0.9% 100 ML IVPB STA (09:49)
[2020-03-28] MEDS ORDERED: PIPERACILLIN-TAZOBACTAM 3.375 GM in SODIUM CHLORIDE 0.9% 100 ML IVPB STA (09:55)
[2020-03-28] MEDS ORDERED: ACETAMINOPHEN IV (For NPO) 1,000 MG in EMPTY BAG 1 BAG IVPB ONE (10:00)
[2020-03-28] MEDS ORDERED: ACETAMINOPHEN TAB 500 MG TAB PO STA (10:06)
[2020-03-28] MEDS: HEPARIN SODIUM,PORCINE 5,000 UNIT/ML 1 ML VIAL SQ SCH ×2 (10:08→19:25)
--- NOTE | 2020-03-28 13:09 | P.GSHP ---
History of Present Illness H&P Date: 03/28/20 CHIEF COMPLAINT: Right lower quadrant abdominal pain HISTORY OF PRESENT ILLNESS: The patient is a 59-year-old male who presents previously presented to the emergency room 2 days ago with fever including sinus congestion as well as abdominal pain was discharged with antibiotics. He then presents back to the emergency room today for right lower quadrant abdominal pain. No active nausea or vomiting. White count presentation over 20,000. Diagnostic studies demonstrate appendicitis. PAST MEDICAL HISTORY: See list and reviewed PAST SURGICAL HISTORY: See list and reviewed CURRENT MEDICATIONS: See list and reviewed ALLERGIES: See list and reviewed SOCIAL HISTORY: See list and reviewed FAMILY HISTORY: See list and reviewed REVIEW OF ORGAN SYSTEMS: CONSTITUTIONAL: Past fever, no chills. Denies recent weight loss. HEENT: Denies any trouble with vision, hearing or nosebleeds. No difficulty swallowing. LYMPHATIC: The patient denies any lumps and bumps around the neck. ENDOCRINE: Denies any thyroid disorders. Denies any blood sugar glucose intolerance. RESPIRATORY: Recent diagnosis of sinus infection. Coronavirus negative. Past pneumonia. CARDIOVASCULAR: Denies current history of chest pain with exertion. GASTROINTESTINAL: Denies regurgitation of bile at night as well as intermittent nausea. No blood in stools. PONV. GENITOURINARY: Denies any blood in urine or increased urinary frequency. MUSCULOSKELETAL: Has current joint arthritis. NEUROLOGIC: Denies any numbness or tingling along the distal extremities. No seizure disorders or headaches. PSYCHIATRIC: Denies any depression or suicidal ideation. HEMATOLOGIC: Denies any abnormal bleeding or bruising. Past PE. PHYSICAL EXAMINATION: GENERAL: A 59-year-old male in no acute distress. Pleasant. HEENT: No sclera icterus. Extraocular movements grossly intact. Moist buccal mucosa. Head is atraumatic, normocephalic. Hears conversational speech. No nasal drainage. NECK: Supple without lymphadenopathy. No JV distention. CHEST: Non-labored respirations and equal bilateral excursions. CARDIOVASCULAR: Regular rate and rhythm. Palpable 2+ radial pulses. ABDOMEN: Soft, tender at the right lower quadrant MUSCULOSKELETAL: No clubbing, cyanosis or edema. NEUROLOGIC: No focal or lateralizing signs. PSYCH: Appropriate affect. Alert and oriented to person, place and time. SKIN: Well perfused. Good skin turgor. LABS: Reviewed. White blood cell count elevated over 20,000. STUDIES: CT of the abdomen and pelvis independently reviewed. Inflammatory changes along appendix with appendicolith identified. Multiple cysts along the right kidney. EKG: Reviewed left atrial enlargement. ASSESSMENT: 1. Right lower quadrant pain. 2. Appendicitis with sepsis 3. Leukocytosis. PLAN: 1. I have discussed benefits and risks of robotic appendectomy. 2. Bilateral SCDs. 3. Antibiotics intravenous to address leukocytosis 4. Incentive spirometry for pulmonary toilet 5. DVT prophylaxis Thank you very much for allowing me to participate in the care of your patient. Past Medical History Past Medical History: Hyperlipidemia, Osteoarthritis (OA), Pneumonia Additional Past Medical History / Comment(s): 04/09/15 Pt presented to [facility] ER with cough, chest congestion, loss of voice (raspy). He saw his PCP and was placed on ABX and Medrol but has gotten no better- he feels worse. He has a sore throat and occasonal sweats and chills. He is being admitted with clinical impression of R lower lobe pneumonia, dyspnea and sinusitis. 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 History of Any Multi-Drug Resistant Organisms: None Reported Past Surgical History: Hernia Repair, Orthopedic Surgery Additional Past Surgical History / Comment(s): Umbilical hernia repair, R knee a rthroscopy, fibroid tumor removed from L lower back, bronchoscopy 2008, sinuplasty with polypectomy. right total knee replacement 05/05/16 Past Anesthesia/Blood Transfusion Reactions: Motion Sickness, Postoperative Nausea & Vomiting (PONV) Past Psychological History: No Psychological Hx Reported Smoking Status: Never smoker Past Alcohol Use History: None Reported Past Drug Use History: None Reported - Past Family History Brother(s) Family Medical History: No Reported History Sister(s) Family Medical History: No Reported History Father Family Medical History: Renal Disease Additional Family Medical History / Comment(s): Father recently diagnosed with hydrocephalis (NPH). He is on peritoneal dialysis. He is 76 yrs old. Mother Family Medical History: No Reported History Additional Family Medical History / Comment(s): Mother is healthy and is 75 yrs. old. Medications and Allergies Home Medications Medication Instructions Recorded Confirmed Type Montelukast [Singulair] 10 mg PO HS #30 tab 05/22/16 03/28/20 Rx Aspirin EC [Ecotrin Low Dose] 81 mg PO DAILY 03/26/20 03/28/20 History Cetirizine HCl [Zyrtec] 10 mg PO DAILY 03/26/20 03/28/20 History Cholecalciferol [Vitamin D3 (25 1,000 unit PO DAILY 03/26/20 03/28/20 History Mcg = 1000 Iu)] Glucosam/Matt-Msm1/C/Ari/Bosw 1 tab PO DAILY 03/26/20 03/28/20 History [Glucosamine-Chondroitin Tablet] Ibuprofen [Motrin Ib] 600 mg PO Q8H PRN 03/26/20 03/28/20 History [place]-3 Fatty Acids/Fish Oil [Fish 1 cap PO DAILY 03/26/20 03/28/20 History Oil 1,000 mg Softgel] Ubidecarenone [Co Q-10] 100 mg PO DAILY 03/26/20 03/28/20 History Acetaminophen Tab [Tylenol Tab] 1,500 mg PO Q6HR PRN 03/28/20 03/28/20 History Azithromycin [Zithromax Z-pack (6 See Taper PO DAILY 03/28/20 03/28/20 History tabs)] Allergies Allergy/AdvReac Type Severity Reaction Status Date / Time Iodinated Contrast Media Allergy Wheezing Verified 03/28/20 09:52 shellfish derived [Shellfish] Allergy Anaphylaxis Verified 03/28/20 09:52 Surgical - Exam Vital Signs Temp Pulse Resp BP Pulse Ox 98.8 F 97 18 118/77 95 03/28/20 07:14 03/28/20 07:14 03/28/20 07:14 03/28/20 07:14 03/28/20 07:14 Results - Labs 03/29/20 04:55 03/28/20 08:02 Abnormal Lab Results - Last 24 Hours (Table) 03/28/20 03/28/20 03/28/20 Range/Units 08:02 08:02 08:10 WBC 20.0 H (3.8-10.6) k/uL Neutrophils # 17.1 H (1.3-7.7) k/uL Monocytes # 1.3 H (0-1.0) k/uL Sodium 134 L (137-145) mmol/L Glucose 241 H (74-99) mg/dL Total Bilirubin 1.6 H (0.2-1.3) mg/dL AST 16 L (17-59) U/L Amylase <30 L (30-110) U/L Ur Specific [place] 1.047 H (1.001-1.035) Urine Protein 1+ H (Negative) Urine Glucose (UA) 4+ H (Negative) Urine Ketones Trace H (Negative) Urine Mucus Moderate H (None) /hpf Diabetes panel 03/28/20 Range/Units 08:02 Sodium 134 L (137-145) mmol/L Potassium 3.8 (3.5-5.1) mmol/L Chloride 102 (98-107) mmol/L Carbon Dioxide 24 (22-30) mmol/L BUN 14 (9-20) mg/dL Creatinine 1.02 (0.66-1.25) mg/dL Glucose 241 H (74-99) mg/dL Calcium 8.9 (8.4-10.2) mg/dL AST 16 L (17-59) U/L ALT 12 (4-49) U/L Alkaline Phosphatase 65 (38-126) U/L Total Protein 6.5 (6.3-8.2) g/dL Albumin 3.7 (3.5-5.0) g/dL Calcium panel 03/28/20 Range/Units 08:02 Calcium 8.9 (8.4-10.2) mg/dL Albumin 3.7 (3.5-5.0) g/dL Pituitary panel 03/28/20 Range/Units 08:02 Sodium 134 L (137-145) mmol/L Potassium 3.8 (3.5-5.1) mmol/L Chloride 102 (98-107) mmol/L Carbon Dioxide 24 (22-30) mmol/L BUN 14 (9-20) mg/dL Creatinine 1.02 (0.66-1.25) mg/dL Glucose 241 H (74-99) mg/dL Calcium 8.9 (8.4-10.2) mg/dL Adrenal panel 03/28/20 Range/Units 08:02 Sodium 134 L (137-145) mmol/L Potassium 3.8 (3.5-5.1) mmol/L Chloride 102 (98-107) mmol/L Carbon Dioxide 24 (22-30) mmol/L BUN 14 (9-20) mg/dL Creatinine 1.02 (0.66-1.25) mg/dL Glucose 241 H (74-99) mg/dL Calcium 8.9 (8.4-10.2) mg/dL Total Bilirubin 1.6 H (0.2-1.3) mg/dL AST 16 L (17-59) U/L ALT 12 (4-49) U/L Alkaline Phosphatase 65 (38-126) U/L Total Protein 6.5 (6.3-8.2) g/dL Albumin 3.7 (3.5-5.0) g/dL Assessment and Plan (1) Acute appendicitis Current Visit: Yes Status: Acute Code(s): K35.80 - UNSPECIFIED ACUTE APPENDICITIS SNOMED Code(s): 12681991 (2) Leukocytosis Current Visit: No Status: Acute Code(s): D72.829 - ELEVATED WHITE BLOOD CELL COUNT, UNSPECIFIED SNOMED Code(s): 969779161 (3) Sinusitis Current Visit: No Status: Acute Code(s): J32.9 - CHRONIC SINUSITIS, UNSPECIFIED SNOMED Code(s): 92338155
[2020-03-28] MEDS ORDERED: PNEUMOCOCCAL VACC-PNEUMOVAX 23 25 MCG/0.5 ML VIAL IM ONE (14:59)
[2020-03-28] MEDS: SODIUM CHLORIDE 0.9% 1,000 ML IV SCH ×2 (16:15→20:07)
[2020-03-28] MEDS: PIPERACILLIN-TAZOBACTAM 3.375 GM in SODIUM CHLORIDE 0.9% 100 ML IVPB SCH (16:15)
[2020-03-28] MEDS ORDERED: AMPICILLIN-SULBACTAM 1.5 GM in SODIUM CHLORIDE 0.9% 50 ML IVPB SCH (18:00)
[2020-03-28] MEDS: HYDROmorphone 1 MG/ML 1 ML SYRINGE IVP PRN ×2 (19:25→21:28)
[2020-03-28] MEDS: LACTATED RINGERS 1,000 ML IV SCH (20:08)
[2020-03-29] MEDS ORDERED: ACETAMINOPHEN TAB 325 MG TAB PO STA (00:14)
[2020-03-29] MEDS: HYDROmorphone 1 MG/ML 1 ML SYRINGE IVP PRN ×2 (00:15→08:38)
[2020-03-29] MEDS: PIPERACILLIN-TAZOBACTAM 3.375 GM in SODIUM CHLORIDE 0.9% 100 ML IVPB SCH ×4 (00:15→23:51)
[2020-03-29] MEDS: SODIUM CHLORIDE 0.9% 1,000 ML IV SCH ×3 (02:15→17:32)
[2020-03-29 05:21] LABS: Basophils % (A) 0 %; Eosinophils # (A) 0.1 k/uL (0-0.7); Eosinophils % (A) 0 %; HCT 43.3 % (39.0-53.0); HGB 13.9 gm/dL (13.0-17.5); Lymphocytes # (A) 1.2 k/uL (1.0-4.8); Lymphocytes % (A) 7 %; MCH 30.6 pg (25.0-35.0); MCHC 32.2 g/dL (31.0-37.0); MCV 95.1 fL (80.0-100.0); Mean Platelet Volume 8.2; Monocytes # (A) 0.7 k/uL (0-1.0); Monocytes % (A) 4 %; Neutrophils # (A) 15.4 k/uL (1.3-7.7); Neutrophils % (A) 87 %; Platelet Count 241 k/uL (150-450); RBC 4.55 m/uL (4.30-5.90); RDW 12.8 % (11.5-15.5); WBC 17.7 k/uL (3.8-10.6)
[2020-03-29] MEDS ORDERED: SODIUM CHLORIDE 0.9% 2,000 ML IV ONE (06:14)
[2020-03-29] MEDS: PANTOPRAZOLE 40 MG/10 ML VIAL IV SCH (08:42)
[2020-03-29] MEDS ORDERED: IV FLUID CONTINUATION 400 ML IV ONE (09:56)
[2020-03-29] MEDS ORDERED: ONDANSETRON 4 MG/2 ML VIAL IVP ONE (10:09)
[2020-03-29] MEDS ORDERED: DEXAMETHASONE SOD PHOSPHATE 4 MG/ML 1 ML VIAL IVP ONE (10:09)
[2020-03-29] MEDS ORDERED: SCOPOLAMINE 1.5MG/72HR PATCH TRANSDERM ONE (10:10)
--- NOTE | 2020-03-29 10:34 | P.HPADDEND ---
H&P Addendum H&P Addendum Date: 03/29/20 Patient is seen and evaluated. Reports new abdominal distention. He is passing flatus. Robotic appendectomy with possible open technique and bowel resection was also reviewed. Placement of MAXIME drain also reviewed.
[2020-03-29] MEDS ORDERED: HEPARIN SODIUM,PORCINE 5,000 UNIT/ML 1 ML VIAL SQ ONE (10:35)
[2020-03-29] MEDS ORDERED: PROPOFOL 10 MG/ML 20 ML VIAL IV ONE (10:54)
[2020-03-29] MEDS ORDERED: fentaNYL (PF) 50 MCG/ML 2 ML AMP ONE (10:54)
[2020-03-29] MEDS ORDERED: ROCURONIUM 10 MG/ML (10 ML VIAL) IV ONE (10:54)
[2020-03-29] MEDS ORDERED: GLYCOPYRROLATE 0.2 MG/ML 2 ML VIAL ONE (10:54)
[2020-03-29] MEDS ORDERED: SUCCINYLCHOLINE CHLORIDE 100 MG/5 ML SYR IV ONE (10:54)
[2020-03-29] MEDS ORDERED: NEOSTIGMINE 1 MG/ML 10 ML VIAL ONE (10:54)
[2020-03-29] MEDS ORDERED: MIDAZOLAM 2 MG/2 ML VIAL ONE (10:54)
[2020-03-29] MEDS ORDERED: LIDOCAINE 1% INJ 10MG/ML (20 ML MDV) ONE (10:54)
[2020-03-29] MEDS: ACETAMINOPHEN IV (For NPO) 1,000 MG in EMPTY BAG 1 BAG IVPB SCH ×3 (11:27→19:49)
[2020-03-29] MEDS: HEPARIN SODIUM,PORCINE 5,000 UNIT/ML 1 ML VIAL SQ SCH ×2 (11:28→20:27)
[2020-03-29] MEDS ORDERED: LIDOCAINE 1%-EPI 1:100,000 20 ML VIAL SQ ONE (11:35)
[2020-03-29] MEDS ORDERED: SODIUM CHLORIDE 0.9% 1,000 ML IV ONE (12:34)
[2020-03-29] MEDS ORDERED: ALBUTEROL NEBULIZED 2.5 MG/3 ML INHALATION ONE (12:53)
--- NOTE | 2020-03-29 13:25 | P.OP ---
Date of Procedure: 03/29/20 Description of Procedure: SURGEON: STEPHANIE PATEL MD Preoperative Diagnosis: 1. Acute appendicitis with sepsis 2. Seasonal allergies 3. Sinusitis 4. Hyperlipidemia 5. History of left lower lobe pneumonia 6. Fevers 7. Leukocytosis Postoperative Diagnosis: 1. Gangrenous acute appendicitis with peritonitis with sepsis 2. Seasonal allergies 3. Sinusitis 4. Hyperlipidemia 5. History of left lower lobe pneumonia 6. Fevers 7. Leukocytosis Procedure(s) Performed: 1. Robotic-assisted daVinci Xi laparoscopic lysis of adhesions over 30 minutes 2. Robotic-assisted daVinci Xi laparoscopic appendectomy 3. Placement of MAXIME drain #19 right lower quadrant via left lower quaddrant 4. Peritoneal lavage 500 mL normal saline Anesthesia: GETA, local Estimated Blood Loss (ml): 20 Pathology: other (Aerobic and anaerobic cultures peritoneal fluid, appendix) Condition: stable Disposition: floor Operative Findings: 1. Gangrenous appendicitis with moderate turbid peritoneal fluid, right lower quadrant 2. Abdomen irrigated with normal saline, 500 mL 3. Cultures obtained of peritoneal fluid 4. Two (2) fires of 45 mm green staple loads used 5. MAXIME drain placed at right lower quadrant of abscess pocket 6. Staple line hemostatic INDICATIONS: The patient is a 59-year-old male who presents with acute appendicitis including fevers and peritonitis consistent with sepsis. Surgical intervention was described in detail. Benefits and risks, including infection, open surgery, and possibility for additional surgery was discussed at length. Informed consent was obtained. All questions of the patient and family were answered. DESCRIPTION: The patient was transferred to the operating room and placed in supine position. The patient had previously voided. The abdomen was then prepped and draped in standard sterile fashion as I[place]an was placed along the abdomen to minimize any contamination of skin floor. After a timeout protocol was performed, attention was then brought to the left upper quadrant whereby a 0 degree 5 mm laparoscopic trocar entry was performed. The abdominal cavity was entered and insufflated to 15 mmHg pressure, which was tolerated well. Diagnostic laparoscopy demonstrated no injury to bowel, viscera or mesentery. Adhesions were confirmed of the right lower quadrant of omentum, small bowel to the abdominal wall. Localized abscess was found. Next a robotic 12-mm trocar was placed along the right upper quadrant, 15-cm superior from the pelvis. A 8 mm port was placed along the left lower quadrant and another 8-mm port along the epigastrium. Ports were placed 10 cm apart from each other including 15-20 cm away from the target anatomy of the right pelvis. The patient was then placed in Trendelenburg position, at least 7 and right side up at least 7. The robotic da Ophelia XI system was primed and docked from the left side of the patient. Using atraumatic graspers and vessel sealer, the robotic system was docked and primed as described. Instruments were interchanged by the warehouse administrative assistant including graspers, robotic stapler and vessel sealer. Next, attention was brought to identify the cecum. A systematic view within the abdominal cavity was started with the small bowel which was remarkable for fibrinous exudate throughout the pelvis. The base of the cecum was with inflammation. The appendix was gangrenous with moderate dissection performed. The abscess of 50-mL was aspirated from the abdomen. A 45 mm blue green staple loads were fired along the base of the appendix. The staple line was hemostatic. Hemostasis was checked prior to undocking the robot. The robot was undocked. I re-scrubbed into the case. A round #19 drain was placed via the left lower quadrant port and positioned at the right lower quadrant and pelvis after irrigating the abdomen with 500-mL of normal saline until the aspirant was clear. A drain stitch 2-0 nylon was placed with the bulb attached separately. The specimen was removed from the abdominal cavity with an Endo Catch bag through the 12 mm trocar at the right upper quadrant. All instruments and pneumoperitoneum were evacuated from the abdominal cavity. Local anesthetic was infiltrated to all wounds for postop analgesia. All incisions were also cleansed with diluted hydrogen peroxide. An Optifoam surgical dressing was placed over the right upper quadrant incision and drain site. Exofin glue was applied to the rest of the skin incisions. The patient had tolerated the procedure well. The patient was extubated successfully. The patient was transferred to the postanesthesia care unit in stable condition.
[2020-03-29] MEDS ORDERED: NALOXONE 0.4 MG/ML 1 ML VIAL IV PRN (14:57)
[2020-03-29] MEDS: TAMSULOSIN 0.4 MG CAP.ER.24H PO SCH (17:46)
[2020-03-29] MEDS: IPRATROPIUM-ALBUTEROL 3 ML NEB INHALATION SCH (19:29)
[2020-03-29] MEDS: LACTATED RINGERS 1,000 ML IV SCH (20:23)
[2020-03-29] MEDS: MONTELUKAST 10 MG TAB PO SCH (20:27)
[2020-03-29] MEDS: ACETAMINOPHEN TAB 500 MG TAB PO SCH (20:27)
[2020-03-30] MEDS: ACETAMINOPHEN TAB 500 MG TAB PO SCH ×4 (01:27→20:31)
[2020-03-30] MEDS: SODIUM CHLORIDE 0.9% 1,000 ML IV SCH ×3 (01:31→14:30)
[2020-03-30] MEDS: IPRATROPIUM-ALBUTEROL 3 ML NEB INHALATION PRN (04:09)
[2020-03-30] MEDS: IPRATROPIUM-ALBUTEROL 3 ML NEB INHALATION SCH ×4 (07:52→20:36)
[2020-03-30] MEDS: PANTOPRAZOLE 40 MG/10 ML VIAL IV SCH (08:13)
[2020-03-30] MEDS: HEPARIN SODIUM,PORCINE 5,000 UNIT/ML 1 ML VIAL SQ SCH ×2 (08:14→20:31)
[2020-03-30] MEDS: PIPERACILLIN-TAZOBACTAM 3.375 GM in SODIUM CHLORIDE 0.9% 100 ML IVPB SCH ×2 (08:29→17:00)
[2020-03-30] MEDS ORDERED: LORATADINE 10 MG TAB PO SCH (09:00)
[2020-03-30 10:06] LABS: Glucose,Whole Blood 202 mg/dL (75-99)
[2020-03-30 11:20] LABS: Basophils % (A) 0 %; Eosinophils % (A) 0 %; HCT 41.5 % (39.0-53.0); HGB 13.3 gm/dL (13.0-17.5); Lymphocytes # (A) 0.9 k/uL (1.0-4.8); Lymphocytes % (A) 7 %; MCV 96.8 fL (80.0-100.0); Mean Platelet Volume 8.5; Monocytes # (A) 0.6 k/uL (0-1.0); Monocytes % (A) 5 %; Neutrophils # (A) 11.1 k/uL (1.3-7.7); Neutrophils % (A) 87 %; Platelet Count 268 k/uL (150-450); RBC 4.29 m/uL (4.30-5.90); RDW 12.7 % (11.5-15.5); WBC 12.7 k/uL (3.8-10.6)
[2020-03-30 11:39] LABS: African American GFR (CKD) >90 (>60 ml/min/1.73 sqM); Anion Gap 7 mmol/L; Blood Urea Nitrogen 17 mg/dL (9-20); Calcium 8.8 mg/dL (8.4-10.2); Carbon Dioxide 30 mmol/L (22-30); Chloride 103 mmol/L (98-107); Glucose 215 mg/dL (74-99); Non-African American GFR(CKD) 78 (>60 ml/min/1.73 sqM); Potassium 4.1 mmol/L (3.5-5.1); Sodium 140 mmol/L (137-145)
--- NOTE | 2020-03-30 12:37 | P.PN ---
<Kym Munoz - Last Filed: 03/30/20 12:24> Subjective Progress Note Date: 03/30/20 CHIEF COMPLAINT: Acute appendicitis HISTORY OF PRESENT ILLNESS: Patient is postop day #1 status post robotic appendectomy for gangrenous appendicitis with peritonitis. Patient reports that his abdominal pain is controlled. He denies any nausea or vomiting. He denies passing gas or having bowel movement. He is reporting a productive cough with some shortness of breath. He was started on nebulizer treatments last night. He had a chest x-ray on 03/26/2020 that had showed some scarring and subsegmental atelectasis at the left lung base slightly increased compared to old exam. He was discharged from the ER on 03/26/2020 with questionable pneumonia and was discharged with azithromycin. Patient also complaining that he is feeling jittery. He does report having type 2 diabetes mellitus diet controlled. Blood sugar was in the 200s. Afebrile. WBC 12.7 MAXIME drain with serosanguineous fluid, 30 mL output so far today PHYSICAL EXAM: VITAL SIGNS: Reviewed GENERAL: Well-developed in no acute distress. HEENT: No sclera icterus. Extraocular movements grossly intact. Moist buccal mucosa. Head is atraumatic, normocephalic. Hears conversational speech. No nasal drainage. NECK: Supple without lymphadenopathy. CHEST: Non-labored respirations and equal bilateral excursions. CARDIOVASCULAR: Palpable 2+ radial pulses. ABDOMEN: Soft. Distended. Mild tenderness along incision sites. Incisions clean dry and intact. MAXIME drain with serosanguineous fluid MUSCULOSKELETAL: No clubbing or cyanosis. NEUROLOGIC: No focal or lateralizing signs. Cranial nerves II through XII grossly intact. PSYCH: Appropriate affect. Alert and oriented to person, place and time. SKIN: Well perfused. Good skin turgor. ASSESSMENT: 1. Gangrenous appendicitis with peritonitis 2. Productive Cough with shortness of breath 3. Diabetes mellitus type 2, diet controlled PLAN: -Continue IV Zosyn -Add Accu-Checks every before meals and at bedtime with sliding scale coverage -Continue clear liquid diet -Consult pulmonary service for cough and shortness of breath -Continue IV fluids -GI prophylaxis Protonix and DVT prophylaxis subcu heparin Physician Pinion Polisher note has been reviewed by physician. Signing provider agrees with the documented findings, assessment, and plan of care. Objective - Vital Signs Vital signs: Vital Signs Temp 97.5 F L 03/30/20 09:00 Pulse 76 03/30/20 11:48 Resp 20 03/30/20 09:00 BP 155/82 03/30/20 09:00 Pulse Ox 92 L 03/30/20 09:00 Intake & Output 03/29/20 03/30/20 03/30/20 18:59 06:59 18:59 Intake Total 800 Output Total 20 50 Balance 780 -50 Intake: IV 800 Output: Drainage 50 Abdomen 50 Estimated Blood Loss 20 Other: Voiding Method Toilet # Voids 1 2 - Labs CBC & Chem 7: 03/30/20 10:34 03/30/20 10:34 Labs: Abnormal Lab Results - Last 24 Hours (Table) 03/30/20 03/30/20 03/30/20 Range/Units 10:03 10:34 10:34 WBC 12.7 H (3.8-10.6) k/uL RBC 4.29 L (4.30-5.90) m/uL Neutrophils # 11.1 H (1.3-7.7) k/uL Lymphocytes # 0.9 L (1.0-4.8) k/uL Glucose 215 H (74-99) mg/dL POC Glucose (mg/dL) 202 H (75-99) mg/dL Microbiology - Last 24 Hours (Table) 03/28/20 08:02 Blood Culture - Preliminary Blood No Growth after 48 hours 03/29/20 12:30 Gram Stain - Preliminary Appendix Wound Culture - Preliminary 03/29/20 12:30 Anaerobic Culture - Preliminary Appendix <Marlyn Walker N - Last Filed: 03/31/20 18:27> Subjective Recommend pulmonary consultation. Patient report pre-existing consultation with pulmonary team. Will start simethicone for gas distention. Check Hgb A1c for diabetic control. Objective - Vital Signs Vital signs: Vital Signs Temp 98.9 F 03/30/20 15:00 Pulse 92 03/30/20 15:18 Resp 18 03/30/20 15:00 BP 155/82 03/30/20 09:00 Pulse Ox 100 03/30/20 15:00 Intake & Output 03/30/20 03/30/20 03/31/20 06:59 18:59 06:59 Intake Total 300 Output Total 50 30 Balance -50 270 Intake: Other 300 Output: Drainage 50 30 Abdomen 50 30 Other: Voiding Method Toilet # Voids 1 2 - Labs CBC & Chem 7: 03/31/20 07:33 03/31/20 07:33 Labs: Abnormal Lab Results - Last 24 Hours (Table) 03/30/20 03/30/20 03/30/20 Range/Units 10:03 10:34 10:34 WBC 12.7 H (3.8-10.6) k/uL RBC 4.29 L (4.30-5.90) m/uL Neutrophils # 11.1 H (1.3-7.7) k/uL Lymphocytes # 0.9 L (1.0-4.8) k/uL Glucose 215 H (74-99) mg/dL POC Glucose (mg/dL) 202 H (75-99) mg/dL Microbiology - Last 24 Hours (Table) 03/30/20 14:55 Sputum Culture - Preliminary Sputum 03/28/20 08:02 Blood Culture - Preliminary Blood No Growth after 48 hours 03/29/20 12:30 Gram Stain - Preliminary Appendix Wound Culture - Preliminary 03/29/20 12:30 Anaerobic Culture - Preliminary Appendix Assessment and Plan (1) Acute appendicitis Current Visit: Yes Status: Acute Code(s): K35.80 - UNSPECIFIED ACUTE APPENDICITIS SNOMED Code(s): 75728650 (2) Leukocytosis Current Visit: No Status: Acute Code(s): D72.829 - ELEVATED WHITE BLOOD CELL COUNT, UNSPECIFIED SNOMED Code(s): 972318451 (3) Sinusitis Current Visit: No Status: Acute Code(s): J32.9 - CHRONIC SINUSITIS, UNSPECIFIED SNOMED Code(s): 88077582
[2020-03-30] MEDS: INSULIN ASPART (NovoLOG) 100 UNIT/ML VIAL SQ SCH ×3 (14:09→20:20)
--- NOTE | 2020-03-30 17:00 | XR ---
EXAMINATION TYPE: XR chest 2V DATE OF EXAM: 03/30/2020 COMPARISON: 03/26/2020 HISTORY: Chest pain TECHNIQUE: FINDINGS: There is some linear infiltrate and atelectasis in the right midlung field. The other lung olivares are fairly are clear. There is no heart failure. Heart size is normal. There is poor inspirati on. There is some linear density also left lung base. IMPRESSION: Inspiration decreased compared to old exam. There is some new atelectasis at the lung bas es
--- NOTE | 2020-03-30 17:01 | P.CNPUL ---
History of Present Illness Consult date: 03/30/20 Requesting physician: Marlyn Walker Reason for consult: dyspnea Chief complaint: Right lower quadrant pain, shortness of breath, cough, congestion History of present illness: This is a very pleasant 59-year-old gentleman who follows with Dr. Soto is his primary care provider. He has a history of seasonal ALLERGIES, hyperlipidemia, previous pneumonias and a lifelong nonsmoker. He had presented here to the emergency room on 03/26/2020 with complaints of fever, shortness of breath, rig ht lower quadrant discomfort. 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 Influenza screen negative. He was told that he has pneumonia and was discharged home on Zithromax and a Medrol Dosepak. On 03/28/2020 had ongoing issues with a right lower quadrant pain and talked his PCP who ordered a computed tomography scan of the abdomen and pelvis chest did reveal findings compatible with moderate acute appendicitis without rupture abscess at that time. He was admitted for the same. He did have a T- max of 102.5. Yesterday he had undergone a robotic appendectomy and placement of a MAXIME drain after finding a gangrenous appendicitis with moderate turbinate peritoneal fluid of the right lower quadrant. Today he was having increasing cough and congestion. He is maintaining good O2 saturations up to 100% on room air. Chest x-ray does show some basilar atelectasis/infiltrate more so on the right. He is currently on Zosyn and bronchodilators. Review of Systems REVIEW OF SYSTEMS: CONSTITUTIONAL: Fever, right lower quadrant discomfort. Denies any recent significant weight loss or weight gain. EYES: Denies change in vision. EARS, NOSE, MOUTH, THROAT: Denies headaches, denies sore throat. CARDIOVASCULAR: Denies chest pain, palpitations or syncopal episodes. RESPIRATORY: Positive for shortness of breath, cough, congestion no hemoptysis. GASTROINTESTINAL: Right lower quadrant pain GENITOURINARY: Denies hematuria, denies infections. MUSKULOSKELETAL: Denies pain, denies swelling. INTEGUMENTARY: Denies rash, denies eczema. NEUROLOGICAL: Denies recent memory loss, no recent seizure activity. PSYCHIATRIC: Denies anxiety, denies depression. HEMATOLOGIC/LYMPHATIC: Denies anemia, denies enlarged lymph nodes. Past Medical History Past Medical History: Hyperlipidemia, Osteoarthritis (OA), Pneumonia Additional Past Medical History / Comment(s): 04/09/[address] [facility] ER with cough, chest congestion, loss of voice (raspy). He saw his PCP and was placed on ABX and Medrol but has gotten no better- he feels worse. He has a sore throat and occasonal sweats and chills. He is being admitted with clinical impression of R lower lobe pneumonia, dyspnea and sinusitis. 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 History of Any Multi-Drug Resistant Organisms: None Reported Past Surgical History: Hernia Repair, Orthopedic Surgery Additional Past Surgical History / Comment(s): Umbilical hernia repair, R knee arthroscopy, fibroid tumor removed from L lower back, bronchoscopy 2008, sinuplasty with polypectomy. right total knee replacement 05/05/16 Past Anesthesia/Blood Transfusion Reactions: Motion Sickness, Postoperative Nausea & Vomiting (PONV) Past Psychological History: No Psychological Hx Reported Smoking Status: Never smoker Past Alcohol Use History: None Reported Past Drug Use History: None Reported - Past Family History Brother(s) Family Medical History: No Reported History Sister(s) Family Medical History: No Reported History Father Family Medical History: Renal Disease Additional Family Medical History / Comment(s): Father recently diagnosed with hydrocephalis (NPH). He is on peritoneal dialysis. He is 76 yrs old. Mother Family Medical History: No Reported History Additional Family Medical History / Comment(s): Mother is healthy and is 75 yrs. old. Medications and Allergies Home Medications Medication Instructions Recorded Confirmed Type Montelukast [Singulair] 10 mg PO HS #30 tab 05/22/16 03/28/20 Rx Aspirin EC [Ecotrin Low Dose] 81 mg PO DAILY 03/26/20 03/28/20 History Cetirizine HCl [Zyrtec] 10 mg PO DAILY 03/26/20 03/28/20 History Cholecalciferol [Vitamin D3 (25 1,000 unit PO DAILY 03/26/20 03/28/20 History Mcg = 1000 Iu)] Glucosam/Matt-Msm1/C/Ari/Bosw 1 tab PO DAILY 03/26/20 03/28/20 History [Glucosamine-Chondroitin Tablet] Ibuprofen [Motrin Ib] 600 mg PO Q8H PRN 03/26/20 03/28/20 History Organ-3 Fatty Acids/Fish Oil [Fish 1 cap PO DAILY 03/26/20 03/28/20 History Oil 1,000 mg Softgel] Ubidecarenone [Co Q-10] 100 mg PO DAILY 03/26/20 03/28/20 History Acetaminophen Tab [Tylenol Tab] 1,500 mg PO Q6HR PRN 03/28/20 03/28/20 History Azithromycin [Zithromax Z-pack (6 See Taper PO DAILY 03/28/20 03/28/20 History tabs)] Allergies Allergy/AdvReac Type Severity Reaction Status Date / Time Iodinated Contrast Media Allergy Wheezing Verified 03/28/20 09:52 shellfish derived [Shellfish] Allergy Anaphylaxis Verified 03/28/20 09:52 Physical Exam Vitals: Vital Signs Temp Pulse Pulse Pulse Resp BP Pulse Ox 03/30/20 15:18 92 03/30/20 15:08 94 03/30/20 15:00 98.9 F 90 18 100 03/30/20 11:48 76 03/30/20 11:40 80 03/30/20 09:00 97.5 F L 105 H 18 155/82 92 L 03/30/20 08:02 82 03/30/20 07:54 96 03/30/20 07:52 78 03/30/20 04:25 80 03/30/20 04:09 80 03/30/20 03:00 98.4 F 86 20 129/82 96 03/29/20 20:18 98.6 F 84 18 131/74 96 03/29/20 19:40 80 03/29/20 19:34 76 03/29/20 17:20 78 18 122/75 97 Intake and Output 03/30/20 03/30/20 03/30/20 06:59 14:59 22:59 Output Total 30 Balance -30 Output: Drainage 30 Abdomen 30 Other: Voiding Method Toilet # Voids 1 2 GENERAL EXAM: Alert, very pleasant 59-year-old gentleman, on room air, fairly comfortable in no apparent distress. HEAD: Normocephalic. EYES: Normal reaction of pupils, equal size. NOSE: Clear with pink turbinates. THROAT: No erythema or exudates. NECK: No masses, no JVD. CHEST: No chest wall deformity. LUNGS: Equal air entry with bilateral scattered rhonchi more so on the right. CVS: S1 and S2 normal with no audible murmur, regular rhythm. ABDOMEN: Surgical incision clean dry well approximated, MAXIME drain in place. Normal bowel sounds, no guarding or rigidity. SPINE: No scoliosis or deformity SKIN: No rashes CENTRAL NERVOUS SYSTEM: No focal deficits, tone is normal in all 4 extremities. EXTREMITIES: There is no peripheral edema. No clubbing, no cyanosis. Peripheral pulses are intact. Results - Laboratory Findings CBC and BMP: 03/30/20 10:34 03/30/20 10:34 PT/INR, D-dimer PT 10.9 sec (9.0-12.0) 03/28/20 08:02 INR 1.1 (<1.2) 03/28/20 08:02 Abnormal lab findings: Abnormal Labs 03/28/20 03/28/20 03/28/20 08:02 08:02 08:10 WBC 20.0 H RBC Neutrophils # 17.1 H Lymphocytes # Monocytes # 1.3 H Sodium 134 L Glucose 241 H POC Glucose (mg/dL) Total Bilirubin 1.6 H AST 16 L Amylase <30 L Ur Specific [place] 1.047 H Urine Protein 1+ H Urine Glucose (UA) 4+ H Urine Ketones Trace H Urine Mucus Moderate H 03/29/20 03/30/20 03/30/20 04:55 10:03 10:34 WBC 17.7 H 12.7 H RBC 4.29 L Neutrophils # 15.4 H 11.1 H Lymphocytes # 0.9 L Monocytes # Sodium Glucose POC Glucose (mg/dL) 202 H Total Bilirubin AST Amylase Ur Specific [place] Urine Protein Urine Glucose (UA) Urine Ketones Urine Mucus 03/30/20 10:34 WBC RBC Neutrophils # Lymphocytes # Monocytes # Sodium Glucose 215 H POC Glucose (mg/dL) Total Bilirubin AST Amylase Ur Specific [place] Urine Protein Urine Glucose (UA) Urine Ketones Urine Mucus - Diagnostic Findings Chest x-ray: image reviewed Assessment and Plan Assessment: 1 Acute appendicitis found to be gangrenous with moderate purulent fluid in the peritoneal cavity, status post robotic-assisted appendectomy and placement of MAXIME drain. Postoperative day #1. 2 Dyspnea secondary to basilar atelectasis/infiltrate 3 Febrile illness secondary to above 4 History of seasonal ALLERGIES and previous pneumonias Plan: The patient was seen and evaluated by Dr. Mckinney Chest x-ray and labs reviewed Continue Zosyn, DuoNeb inhalations Add incentive spirometer and encourage increased use Add Tessalon Perles and Robitussin with codeine as needed Increase his activity as tolerated We'll continue to follow and make further recommendations based on his clinical status I, the cosigning physician, performed a history & physical examination of the patient. Lungs sounds bilateral rhonchi more so on the right. Maintaining good O2 saturations in the 90s on room air. I discussed the assessment and plan of care with my nurse practitioner, Mady Villagran. I attest to the above consultation as dictated by her. Time with Patient: Greater than 30
[2020-03-30] MEDS: TAMSULOSIN 0.4 MG CAP.ER.24H PO SCH (18:28)
[2020-03-30 20:17] LABS: Glucose,Whole Blood 166 mg/dL (75-99)
[2020-03-30] MEDS: LACTATED RINGERS 1,000 ML IV SCH (20:23)
[2020-03-30] MEDS: BENZONATATE 100 MG CAP PO SCH (20:30)
[2020-03-30] MEDS: SIMETHICONE 40 MG/0.6 ML DROPS 2,000 MG/30 ML BOTTLE PO SCH ×2 (20:30→20:41)
[2020-03-30] MEDS: LORATADINE-PSEUDOEPH 5-120 MG 1 EACH TAB.ER.12H PO SCH (20:31)
[2020-03-30] MEDS: MONTELUKAST 10 MG TAB PO SCH (20:45)
[2020-03-30 21:27] LABS: Hemoglobin A1C 7.5 % (4.0-6.0)
[2020-03-31] MEDS: SODIUM CHLORIDE 0.9% 1,000 ML IV SCH ×3 (00:05→13:22)
[2020-03-31] MEDS: PIPERACILLIN-TAZOBACTAM 3.375 GM in SODIUM CHLORIDE 0.9% 100 ML IVPB SCH ×3 (00:05→15:29)
[2020-03-31] MEDS: guaiFENesin-Coden 100-10MG/5ML 10 ML CUP PO PRN (00:13)
[2020-03-31] MEDS: IPRATROPIUM-ALBUTEROL 3 ML NEB INHALATION PRN (00:33)
[2020-03-31] MEDS: ACETAMINOPHEN TAB 500 MG TAB PO SCH ×4 (01:08→20:50)
[2020-03-31 06:26] LABS: Glucose,Whole Blood 160 mg/dL (75-99)
[2020-03-31 07:49] LABS: Basophils % (A) 0 %; Eosinophils # (A) 0.2 k/uL (0-0.7); Eosinophils % (A) 2 %; HCT 41.4 % (39.0-53.0); HGB 13.6 gm/dL (13.0-17.5); Lymphocytes % (A) 10 %; MCH 31.3 pg (25.0-35.0); MCHC 32.8 g/dL (31.0-37.0); MCV 95.4 fL (80.0-100.0); Mean Platelet Volume 7.9; Monocytes # (A) 0.5 k/uL (0-1.0); Monocytes % (A) 5 %; Neutrophils # (A) 8.4 k/uL (1.3-7.7); Neutrophils % (A) 81 %; Platelet Count 270 k/uL (150-450); RBC 4.33 m/uL (4.30-5.90); RDW 12.8 % (11.5-15.5); WBC 10.4 k/uL (3.8-10.6)
[2020-03-31 07:59] LABS: Potassium 3.7 mmol/L (3.5-5.1)
[2020-03-31] MEDS: INSULIN ASPART (NovoLOG) 100 UNIT/ML VIAL SQ SCH ×4 (08:07→20:49)
[2020-03-31] MEDS: PANTOPRAZOLE 40 MG/10 ML VIAL IV SCH (08:31)
[2020-03-31] MEDS: HEPARIN SODIUM,PORCINE 5,000 UNIT/ML 1 ML VIAL SQ SCH ×2 (08:31→20:50)
[2020-03-31] MEDS: SIMETHICONE 40 MG/0.6 ML DROPS 2,000 MG/30 ML BOTTLE PO SCH ×4 (08:33→20:49)
[2020-03-31] MEDS: LORATADINE-PSEUDOEPH 5-120 MG 1 EACH TAB.ER.12H PO SCH ×2 (08:33→20:50)
[2020-03-31] MEDS: BENZONATATE 100 MG CAP PO SCH ×3 (08:33→20:50)
[2020-03-31] MEDS: IPRATROPIUM-ALBUTEROL 3 ML NEB INHALATION SCH ×4 (08:52→19:35)
--- NOTE | 2020-03-31 09:45 | P.PN ---
Subjective Progress Note Date: 03/31/20 Principal diagnosis: Appendicitis status post appendectomy This is a very pleasant 59-year-old gentleman who follows with Dr. Soto is his primary care provider. He has a history of seasonal ALLERGIES, hyperlipidemia, previous pneumonias and a lifelong nonsmoker. He had presented here to the emergency room o on 03/26/2020 with complaints of fever, shortness of breath, right lower quadrant discomfort. 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 Influenza screen negative. He was told that he has pneumonia and was discharged home on Zithromax and a Medrol Dosepak. On 03/28/2020 had ongoing issues with a right lower quadrant pain and talked his PCP who ordered a computed tomography scan of the abdomen and pelvis chest did reveal findings compatible with moderate acute appendicitis without rupture abscess at that time. He was admitted for the same. He did have a T-max of 102.5. Yesterday he had undergone a robotic appendectomy and placement of a MAXIME drain after finding a gangrenous appendicitis with moderate turbinate peritoneal fluid of the right lower quadrant. Today he was having increasing cough and congestion. He is maintaining good O2 saturations up to 100% on room air. Chest x-ray does show some basilar atelectasis/infiltrate more so on the right. He is currently on Zosyn and bronchodilators. The patient is seen today 03/31/2020 in follow-up on the observation unit. He is awake and alert in no acute distress. He is actually doing a bit better today compared to yesterday. Less cough and congestion. Chest x-ray did reveal evidence of pneumonia in the right lung base. He is maintaining O2 saturations in the 90s on room air. He's afebrile. He remains on Zosyn. Wound cultures, blood cultures and sputum cultures are pending. His abdominal incisions are clean dry well approximated. MAXIME drain remains in place. He is having some concerns with constipation today. White count 10.4. Hemoglobin 13.6. Sodium 141. Potassium 3.7. Creatinine 1.05. Objective - Vital Signs Vital signs: Vital Signs Temp 98.4 F 03/31/20 08:44 Pulse 92 03/31/20 09:06 Resp 16 03/31/20 08:44 BP 163/95 03/31/20 08:44 Pulse Ox 94 L 03/31/20 08:44 Intake & Output 03/30/20 03/31/20 03/31/20 18:59 06:59 18:59 Intake Total 300 1420 Output Total 30 130 35 Balance 270 1290 -35 Intake: Intake, IV Titration 880 Amount Piperacillin-Tazobactam 3 100 .375 gm In Sodium Chloride 0.9% 100 ml @ 25 mls/hr IVPB Q8HR [facility] Rx# :[id number] Sodium Chloride 0.9% 1, 780 000 ml @ 130 mls/hr IV . Q7H42M [facility] Rx#:[id number] Oral 540 Other 300 Output: Drainage 30 130 35 Abdomen 30 130 35 Other: Voiding Method Toilet # Voids 2 3 - Exam GENERAL EXAM: Alert, very pleasant 59-year-old gentleman, on room air, fairly comfortable in no apparent distress. HEAD: Normocephalic. EYES: Normal reaction of pupils, equal size. NOSE: Clear with pink turbinates. THROAT: No erythema or exudates. NECK: No masses, no JVD. CHEST: No chest wall deformity. LUNGS: Equal air entry with bilateral scattered rhonchi more so on the right. CVS: S1 and S2 normal with no audible murmur, regular rhythm. ABDOMEN: Surgical incision clean dry well approximated, MAXIME drain in place. Normal bowel sounds, no guarding or rigidity. SPINE: No scoliosis or deformity SKIN: No rashes CENTRAL NERVOUS SYSTEM: No focal deficits, tone is normal in all 4 extremities. EXTREMITIES: There is no peripheral edema. No clubbing, no cyanosis. Peripheral pulses are intact. - Labs CBC & Chem 7: 03/31/20 07:33 03/31/20 07:33 Labs: Abnormal Lab Results - Last 24 Hours (Table) 03/30/20 03/30/20 03/30/20 Range/Units 10:03 10:34 10:34 WBC 12.7 H (3.8-10.6) k/uL RBC 4.29 L (4.30-5.90) m/uL Neutrophils # 11.1 H (1.3-7.7) k/uL Lymphocytes # 0.9 L (1.0-4.8) k/uL Carbon Dioxide (22-30) mmol/L Glucose (74-99) mg/dL POC Glucose (mg/dL) 202 H (75-99) mg/dL Hemoglobin A1c 7.5 H (4.0-6.0) % 03/30/20 03/30/20 03/31/20 Range/Units 10:34 20:16 06:24 WBC (3.8-10.6) k/uL RBC (4.30-5.90) m/uL Neutrophils # (1.3-7.7) k/uL Lymphocytes # (1.0-4.8) k/uL Carbon Dioxide (22-30) mmol/L Glucose 215 H (74-99) mg/dL POC Glucose (mg/dL) 166 H 160 H (75-99) mg/dL Hemoglobin A1c (4.0-6.0) % 03/31/20 03/31/20 Range/Units 07:33 07:33 WBC (3.8-10.6) k/uL RBC (4.30-5.90) m/uL Neutrophils # 8.4 H (1.3-7.7) k/uL Lymphocytes # (1.0-4.8) k/uL Carbon Dioxide 34 H (22-30) mmol/L Glucose 172 H (74-99) mg/dL POC Glucose (mg/dL) (75-99) mg/dL Hemoglobin A1c (4.0-6.0) % Microbiology - Last 24 Hours (Table) 03/30/20 14:55 Gram Stain - Preliminary Sputum Sputum Culture - Preliminary 03/28/20 08:02 Blood Culture - Preliminary Blood No Growth after 48 hours Assessment and Plan Assessment: 1 Acute appendicitis found to be gangrenous with moderate purulent fluid in the peritoneal cavity, status post robotic-assisted appendectomy and placement of MAXIME drain. Postoperative day #2. 2 Dyspnea secondary to basilar atelectasis/infiltrate more so on the right lower lobe 3 Febrile illness secondary to above, improved 4 History of seasonal ALLERGIES and previous pneumonias Plan: The patient was seen and evaluated by Nadira Veras inhalations Continue incentive spirometer and encourage increased use Continue Tessalon Perles and Robitussin with codeine as needed Increase his activity as tolerated We'll continue to follow and make further recommendations based on his clinical status I, the cosigning physician, performed a history & physical examination of the patient. Lungs sounds bilateral rhonchi more so on the right. Maintaining good O2 saturations in the 90s on room air. I discussed the assessment and plan of care with my nurse practitioner, Mady Villagran. I attest to the above note as dictated by her.
[2020-03-31 11:40] LABS: Glucose,Whole Blood 163 mg/dL (75-99)
[2020-03-31] MEDS ORDERED: MAGNESIUM HYDROXIDE 2,400 MG/10 ML CUP PO STA (16:19)
--- NOTE | 2020-03-31 16:19 | P.PN ---
Subjective Progress Note Date: 03/31/20 CHIEF COMPLAINT: Acute gangrenous appendicitis HISTORY OF PRESENT ILLNESS: The patient is a 59-year-old male status post appendectomy for gangrenous appendicitis. He is postoperative day 2. He is tolerating diet. He reports finally passing flatus. He is tolerating liquids. He is pending a bowel movement. He reports less abdominal distention. Coughing has improved. ROS: No reports of nausea and vomiting. No bowel movements. No fevers or chills. No new chest pain. No productive sputum PHYSICAL EXAM: VITAL SIGNS: Reviewed CONSTITUTIONAL: Well developed and in no acute distress. EYES: Conjuctivae without sclera icterus. Extraocular movements grossly intact. HEAD, EARS, NOSE, THROAT: Moist buccal mucosa. Head is atraumatic, normocephalic. Hears conversational speech. No nasal drainage. NECK: Supple. No thyroidomegaly. RESPIRATORY: Non-labored respirations and equal bilateral excursions. CARDIOVASCULAR: Palpable 2+ radial pulses. ABDOMEN: MAXIME serous. Less abdominal distention MUSCULOSKELETAL: No gross deformity of the lower extremities noted. No clubbing. No cyanosis. SKIN: Good skin turgor. Well perfused. NEUROLOGIC: Cranial nerves II through XII grossly intact. No focal or lateralizing signs. PSYCH: Appropriate affect. Alert and oriented to person, place and time. CLINICAL LABS: White blood cell count normal, less than 11.0 ASSESSMENT: 1. Gangrenous appendicitis PLAN: 1. Milk of magnesia for bowel movement 2. Continue MAXIME 3. Will need antibiotics for home Objective - Vital Signs Vital signs: Vital Signs Temp 98.7 F 03/31/20 14:15 Pulse 103 H 03/31/20 15:09 Resp 16 03/31/20 14:15 BP 161/93 03/31/20 14:15 Pulse Ox 94 L 03/31/20 14:15 Intake & Output 03/30/20 03/31/20 03/31/20 18:59 06:59 18:59 Intake Total 300 1420 Output Total 30 130 45 Balance 270 1290 -45 Intake: Intake, IV Titration 880 Amount Piperacillin-Tazobactam 3 100 .375 gm In Sodium Chloride 0.9% 100 ml @ 25 mls/hr IVPB Q8HR [facility] Rx# :[id number] Sodium Chloride 0.9% 1, 780 000 ml @ 130 mls/hr IV . Q7H42M [facility] Rx#:[id number] Oral 540 Other 300 Output: Drainage 30 130 45 Abdomen 30 130 45 Other: Voiding Method Toilet Toilet # Voids 2 3 1 - Labs CBC & Chem 7: 03/31/20 07:33 03/31/20 07:33 Labs: Abnormal Lab Results - Last 24 Hours (Table) 03/30/20 03/30/20 03/31/20 Range/Units 10:34 20:16 06:24 Neutrophils # (1.3-7.7) k/uL Carbon Dioxide (22-30) mmol/L Glucose (74-99) mg/dL POC Glucose (mg/dL) 166 H 160 H (75-99) mg/dL Hemoglobin A1c 7.5 H (4.0-6.0) % 03/31/20 03/31/20 03/31/20 Range/Units 07:33 07:33 11:38 Neutrophils # 8.4 H (1.3-7.7) k/uL Carbon Dioxide 34 H (22-30) mmol/L Glucose 172 H (74-99) mg/dL POC Glucose (mg/dL) 163 H (75-99) mg/dL Hemoglobin A1c (4.0-6.0) % Microbiology - Last 24 Hours (Table) 03/28/20 08:02 Blood Culture - Preliminary Blood No Growth after 72 hours 03/30/20 14:55 Gram Stain - Preliminary Sputum Sputum Culture - Preliminary Assessment and Plan (1) Acute appendicitis Current Visit: Yes Status: Acute Code(s): K35.80 - UNSPECIFIED ACUTE APPENDICITIS SNOMED Code(s): 20030501 (2) Leukocytosis Current Visit: No Status: Acute Code(s): D72.829 - ELEVATED WHITE BLOOD CELL COUNT, UNSPECIFIED SNOMED Code(s): 642481800 (3) Sinusitis Current Visit: No Status: Acute Code(s): J32.9 - CHRONIC SINUSITIS, UNSPECIFIED SNOMED Code(s): 35199098 (4) Acute gangrenous appendicitis with localized peritonitis, without p erforation Current Visit: Yes Status: Acute Code(s): K35.31 - ACUTE APPENDICITIS WITH LOC PERITONITIS AND GANGR, W/O PERF SNOMED Code(s): 27684207 (5) Acute gangrenous appendicitis Current Visit: Yes Status: Acute Code(s): K35.891 - OTHER ACUTE APPENDICITIS WITHOUT PERFORATION, WITH GANGRENE SNOMED Code(s): 50984695 (6) Diabetes type 2, uncontrolled Current Visit: Yes Status: Acute Code(s): E11.65 - TYPE 2 DIABETES MELLITUS WITH HYPERGLYCEMIA SNOMED Code(s): 911289238
[2020-03-31 16:40] LABS: Glucose,Whole Blood 169 mg/dL (75-99)
[2020-03-31] MEDS: TAMSULOSIN 0.4 MG CAP.ER.24H PO SCH (16:44)
[2020-03-31] MEDS: LACTATED RINGERS 1,000 ML IV SCH (20:43)
[2020-03-31 20:50] LABS: Glucose,Whole Blood 157 mg/dL (75-99)
[2020-03-31] MEDS: MONTELUKAST 10 MG TAB PO SCH (20:50)
[2020-04-01] MEDS: SODIUM CHLORIDE 0.9% 1,000 ML IV SCH ×3 (00:40→11:48)
[2020-04-01] MEDS: ACETAMINOPHEN TAB 500 MG TAB PO SCH ×2 (00:42→07:42)
[2020-04-01] MEDS: PIPERACILLIN-TAZOBACTAM 3.375 GM in SODIUM CHLORIDE 0.9% 100 ML IVPB SCH ×2 (00:43→07:01)
[2020-04-01] MEDS: guaiFENesin-Coden 100-10MG/5ML 10 ML CUP PO PRN (00:52)
[2020-04-01 06:18] LABS: Glucose,Whole Blood 122 mg/dL (75-99)
[2020-04-01] MEDS: INSULIN ASPART (NovoLOG) 100 UNIT/ML VIAL SQ SCH ×2 (07:00→11:48)
[2020-04-01 07:42] VITALS: BP 154/95; RESP 16; TEMP 98.3
[2020-04-01] MEDS: PANTOPRAZOLE 40 MG/10 ML VIAL IV SCH (07:42)
[2020-04-01] MEDS: BENZONATATE 100 MG CAP PO SCH (07:42)
[2020-04-01] MEDS: LORATADINE-PSEUDOEPH 5-120 MG 1 EACH TAB.ER.12H PO SCH (07:43)
[2020-04-01] MEDS: HEPARIN SODIUM,PORCINE 5,000 UNIT/ML 1 ML VIAL SQ SCH (07:43)
[2020-04-01] MEDS: SIMETHICONE 40 MG/0.6 ML DROPS 2,000 MG/30 ML BOTTLE PO SCH ×2 (07:43→12:59)
[2020-04-01] MEDS: IPRATROPIUM-ALBUTEROL 3 ML NEB INHALATION SCH ×2 (09:07→13:26)
[2020-04-01 09:10] LABS: Basophils % (A) 0 %; Eosinophils # (A) 0.4 k/uL (0-0.7); Eosinophils % (A) 3 %; HCT 43.6 % (39.0-53.0); HGB 14.1 gm/dL (13.0-17.5); Lymphocytes # (A) 1.4 k/uL (1.0-4.8); Lymphocytes % (A) 12 %; MCH 30.6 pg (25.0-35.0); MCHC 32.3 g/dL (31.0-37.0); MCV 94.8 fL (80.0-100.0); Mean Platelet Volume 8.4; Monocytes # (A) 0.9 k/uL (0-1.0); Monocytes % (A) 8 %; Neutrophils # (A) 8.5 k/uL (1.3-7.7); Neutrophils % (A) 74 %; Platelet Count 326 k/uL (150-450); RBC 4.59 m/uL (4.30-5.90); RDW 13.2 % (11.5-15.5); WBC 11.4 k/uL (3.8-10.6)
--- NOTE | 2020-04-01 09:12 | XR ---
EXAMINATION TYPE: XR chest 2V DATE OF EXAM: 04/01/2020 COMPARISON: 03/30/2020 HISTORY: Shortness of breath TECHNIQUE: Frontal and lateral views of the chest are obtained. FINDINGS: Scattered senescent parenchymal changes noted. No discoid opacity right lung base likely reflects discoid atelectasis unchanged from prior study. Un derlying pneumonia is difficult to exclude. Heart size is stable. Mediastinal structures are stable and grossly unremarkable. No evidence for hilar prominence. Degenerative changes dorsal spine. IMPRESSION: 1. Overall no significant change appreciated. Clinical correlation and progress studies are advised.
[2020-04-01 09:13] LABS: African American GFR (CKD) >90 (>60 ml/min/1.73 sqM); Anion Gap 7 mmol/L; Blood Urea Nitrogen 15 mg/dL (9-20); Calcium 8.8 mg/dL (8.4-10.2); Carbon Dioxide 30 mmol/L (22-30); Chloride 101 mmol/L (98-107); Glucose 150 mg/dL (74-99); Non-African American GFR(CKD) >90 (>60 ml/min/1.73 sqM); Potassium 3.8 mmol/L (3.5-5.1); Sodium 138 mmol/L (137-145)
[2020-04-01 09:18] VITALS: PULSE 88
--- NOTE | 2020-04-01 09:45 | P.PN ---
Subjective Progress Note Date: 04/01/20 Principal diagnosis: Appendicitis status post appendectomy This is a very pleasant 59-year-old gentleman who follows with Dr. Soto is his primary care provider. He has a history of seasonal ALLERGIES, hyperlipidemia, previous pneumonias and a lifelong nonsmoker. He had presented here to the emergency room o on 03/26/2020 with complaints of fever, shortness of breath, right lower quadrant discomfort. 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 Influenza screen negative. He was told that he has pneumonia and was discharged home on Zithromax and a Medrol Dosepak. On 03/28/2020 had ongoing issues with a right lower quadrant pain and talked his PCP who ordered a computed tomography scan of the abdomen and pelvis chest did reveal findings compatible with moderate acute appendicitis without rupture abscess at that time. He was admitted for the same. He did have a T-max of 102.5. Yesterday he had undergone a robotic appendectomy and placement of a MAXIME drain after finding a gangrenous appendicitis with moderate turbinate peritoneal fluid of the right lower quadrant. Today he was having increasing cough and congestion. He is maintaining good O2 saturations up to 100% on room air. Chest x-ray does show some basilar atelectasis/infiltrate more so on the right. He is currently on Zosyn and bronchodilators. The patient is seen today 03/31/2020 in follow-up on the observation unit. He is awake and alert in no acute distress. He is actually doing a bit better today compared to yesterday. Less cough and congestion. Chest x-ray did reveal evidence of pneumonia in the right lung base. He is maintaining O2 saturations in the 90s on room air. He's afebrile. He remains on Zosyn. Wound cultures, blood cultures and sputum cultures are pending. His abdominal incisions are clean dry well approximated. MAXIME drain remains in place. He is having some concerns with constipation today. White count 10.4. Hemoglobin 13.6. Sodium 141. Potassium 3.7. Creatinine 1.05. The patient is seen today 04/01/2020 in follow-up on the observation unit. He is currently resting comfortably in bed. Awake and alert in no acute distress. Maintaining O2 saturations in the 90s on room air. No IV fluids. He still has a loose nonproductive cough. No fever chills. Follow-up chest x-ray reveals discoid atelectasis in the right lung base otherwise clear. No change compared to previous. He remains on DuoNeb inhalations, Tessalon Perles, Robitussin, Singulair, Claritin Zosyn. White count 11.4. Hemoglobin 14.1. Sodium 1:30. Potassium 3.8. Creatinine 0.9. Objective - Vital Signs Vital signs: Vital Signs Temp 98.3 F 04/01/20 07:41 Pulse 88 04/01/20 09:17 Resp 16 04/01/20 07:41 BP 154/95 04/01/20 07:41 Pulse Ox 97 04/01/20 07:41 Intake & Output 03/31/20 04/01/20 04/01/20 18:59 06:59 18:59 Intake Total 440 100 Output Total 45 60 Balance 395 40 Intake: Intake, IV Titration 100 Amount Piperacillin-Tazobactam 3 100 .375 gm In Sodium Chloride 0.9% 100 ml @ 25 mls/hr IVPB Q8HR [facility] Rx# :[id number] Oral 240 Other 200 Output: Drainage 45 60 Abdomen 45 60 Other: Voiding Method Toilet Toilet Toilet # Voids 1 2 # Bowel Movements 2 - Exam GENERAL EXAM: Alert, very pleasant 59-year-old gentleman, on room air, fairly comfortable in no apparent distress. HEAD: Normocephalic. EYES: Normal reaction of pupils, equal size. NOSE: Clear with pink turbinates. THROAT: No erythema or exudates. NECK: No masses, no JVD. CHEST: No chest wall deformity. LUNGS: Equal air entry with crackles in the right lung base. CVS: S1 and S2 normal with no audible murmur, regular rhythm. ABDOMEN: Surgical incision clean dry well approximated, MAXIME drain in place. Normal bowel sounds, no guarding or rigidity. SPINE: No scoliosis or deformity SKIN: No rashes CENTRAL NERVOUS SYSTEM: No focal deficits, tone is normal in all 4 extremities. EXTREMITIES: There is no peripheral edema. No clubbing, no cyanosis. Peripheral pulses are intact. - Labs CBC & Chem 7: 04/01/20 08:47 04/01/20 08:47 Labs: Abnormal Lab Results - Last 24 Hours (Table) 11/03/31/20 03/31/20 Range/Units 11:38 16:37 20:48 WBC (3.8-10.6) k/uL Neutrophils # (1.3-7.7) k/uL Glucose (74-99) mg/dL POC Glucose (mg/dL) 163 H 169 H 157 H (75-99) mg/dL 04/01/20 04/01/20 04/01/20 Range/Units 06:17 08:47 08:47 WBC 11.4 H (3.8-10.6) k/uL Neutrophils # 8.5 H (1.3-7.7) k/uL Glucose 150 H (74-99) mg/dL POC Glucose (mg/dL) 122 H (75-99) mg/dL Microbiology - Last 24 Hours (Table) 03/29/20 12:30 Gram Stain - Preliminary Appendix Wound Culture - Preliminary Gram Neg Bacilli 03/28/20 08:02 Blood Culture - Preliminary Blood No Growth after 72 hours Assessment and Plan Assessment: 1 Acute appendicitis found to be gangrenous with moderate purulent fluid in the peritoneal cavity, status post robotic-assisted appendectomy and placement of MAXIME drain. Postoperative day #3. 2 Dyspnea secondary to basilar atelectasis/infiltrate more so on the right lower lobe 3 Febrile illness secondary to above, improved 4 History of seasonal ALLERGIES and previous pneumonias Plan: The patient was seen and evaluated by Dr. Mckinney Chest x-ray and labs reviewed He is cleared for discharge from the pulmonary standpoint Complete a course of antibiotics in the form of Augmentin Continue incentive spirometer and encourage increased use Follow-up in the office in 1-2 weeks' time I, the cosigning physician, performed a history & physical examination of the patient. Lungs sounds crackles in the right base. Maintaining good O2 saturations in the 90s on room air. I discussed the assessment and plan of care with my nurse practitioner, Mady Villagran. I attest to the above note as dictated by her.
[2020-04-01 11:42] LABS: Glucose,Whole Blood 138 mg/dL (75-99)
--- NOTE | 2020-04-01 12:44 | P.DS ---
Providers Date of admission: 03/29/20 14:57 Expected date of discharge: 04/01/20 Attending physician: Marlyn Walker Consults: 03/30/20 11:57 Consult Physician Routine Consulting Provider: Corona Mckinney Consult Reason/Comments: productive cough Do you want consulting provider notified?: Yes Primary care physician: Michelle Soto - Discharge Diagnosis(es) (1) Acute appendicitis Current Visit: Yes Status: Acute (2) Leukocytosis Current Visit: No Status: Acute (3) Sinusitis Current Visit: No Status: Acute (4) Acute appendicitis with generalized peritonitis and gangrene Current Visit: Yes Status: Acute (5) Acute gangrenous appendicitis Current Visit: Yes Status: Acute (6) Diabetes type 2, uncontrolled Current Visit: Yes Status: Acute Hospital Course: The patient is a 59 year old male who presented with appendicitis. He underwent robotic appendectomy with findings of gangrenous appendicitis. MAXIME drain was placed. He was on antibiotics with improvement of his WBC. His right lower quadrant abdominal pain had resolved. Discharge instructions were reviewed. He was stable prior to discharge, tolerating diet, having bowel movements and pass ing flatus. MAXIME drain was serous. Patient Condition at Discharge: Good Plan - Discharge Summary Discharge Rx Participant: No New Discharge Prescriptions: New Amoxic-Pot Clav 875-125Mg [Augmentin 875-125] 1 each PO Q12HR #14 tab metroNIDAZOLE [Flagyl] 500 mg PO TID #30 tab Ibuprofen [Motrin] 600 mg PO Q8HR PRN #30 tab PRN Reason: Pain Acetaminophen Tab [Tylenol Tab] 1,000 mg PO Q6HR PRN #30 tablet Continue Montelukast [Singulair] 10 mg PO HS #30 tab Cetirizine HCl [Zyrtec] 10 mg PO DAILY Aspirin EC [Ecotrin Low Dose] 81 mg PO DAILY Discontinued Ibuprofen [Motrin Ib] 600 mg PO Q8H PRN PRN Reason: Pain Or Fever > 100.5 Cholecalciferol [Vitamin D3 (25 Mcg = 1000 Iu)] 1,000 unit PO DAILY Ubidecarenone [Co Q-10] 100 mg PO DAILY [place]-3 Fatty Acids/Fish Oil [Fish Oil 1,000 mg Softgel] 1 cap PO DAILY Glucosam/Matt-Msm1/C/Ari/Bosw [Glucosamine-Chondroitin Tablet] 1 tab PO DAILY Acetaminophen Tab [Tylenol Tab] 1,500 mg PO Q6HR PRN PRN Reason: Pain Azithromycin [Zithromax Z-pack (6 tabs)] See Taper PO DAILY Discharge Medication List Montelukast [Singulair] 10 mg PO HS #30 tab 05/22/16 [Rx] Aspirin EC [Ecotrin Low Dose] 81 mg PO DAILY 03/26/20 [History] Cetirizine HCl [Zyrtec] 10 mg PO DAILY 03/26/20 [History] Acetaminophen Tab [Tylenol Tab] 1,000 mg PO Q6HR PRN #30 tablet 04/01/20 [Rx] Amoxic-Pot Clav 875-125Mg [Augmentin 875-125] 1 each PO Q12HR #14 tab 04/01/20 [Rx] Ibuprofen [Motrin] 600 mg PO Q8HR PRN #30 tab 04/01/20 [Rx] metroNIDAZOLE [Flagyl] 500 mg PO TID #30 tab 04/01/20 [Rx] Follow up Appointment(s)/Referral(s): Michelle Soto III, MD [Primary Care Provider] - 1-2 days Corona Mckinney DO [Doctor of Osteopathic Medicine] - 1 Week [facility] Visiting Nurse, [NON-STAFF] - 1-2 Days Marlyn Walker MD [STAFF PHYSICIAN] - 04/03/20 Patient Instructions/Handouts: *Surgery [facility] - Scopalamine Patch Instructions, Appendicitis (GEN), Laparoscopic Appendectomy (DC), [facility] Drain Care (DC) Activity/Diet/Wound Care/Special Instructions: No lifting over 10 pounds for 2 weeks, April 12 Keep MAXIME drain site dry! Recommend liquid diet for home Expect diarrhea from your antibiotics No bath tub soaks Discharge Disposition: HOME WITH HOME HEALTH SERVICES
--- NOTE | 2020-04-01 21:04 | P.PN ---
Progress Note - Text Progress Note Date: 04/01/20 Final cultures resulted pseudomonas. Ciprofloxacin prescribed.
== END 2020-04-01 13:30 | disposition home health service (06) | DRG 854 ==
LOC: EC 07:11 → 1SOBS 09:39 → OBSVTOIN 03-29 14:57
PROVIDERS: ADMIT Surgery Plastic and Reconstructive Surgery; ATTEND Surgery Plastic and Reconstructive Surgery
PROC: 3E1M38Z Irrigation of Peritoneal Cavity using Irrigating Substance, Percutaneous Approach (ICD-10-PCS; principal; 2020-03-29 10:30)
PROC: 0DTJ4ZZ Resection of Appendix, Percutaneous Endoscopic Approach (ICD-10-PCS; principal; 2020-03-29 10:30)
PROC: 8E0W4CZ Robotic Assisted Procedure of Trunk Region, Percutaneous Endoscopic Approach (ICD-10-PCS; principal; 2020-03-29 10:30)
PROC: 0DNW4ZZ Release Peritoneum, Percutaneous Endoscopic Approach (ICD-10-PCS; principal; 2020-03-29 10:30)
DX: A41.9 Sepsis, unspecified organism (principal); K35.31 Acute appendicitis with localized peritonitis and gangrene, without perforation; J98.11 Atelectasis; J32.9 Chronic sinusitis, unspecified; J30.2 Other seasonal allergic rhinitis; K66.0 Peritoneal adhesions (postprocedural) (postinfection); E11.65 Type 2 diabetes mellitus with hyperglycemia; E78.00 Pure hypercholesterolemia, unspecified; E78.5 Hyperlipidemia, unspecified; Z79.82 Long term (current) use of aspirin; Z79.899 Other long term (current) drug therapy; Z96.651 Presence of right artificial knee joint; Z87.01 Personal history of pneumonia (recurrent); Z84.1 Family history of disorders of kidney and ureter; M19.042 Primary osteoarthritis, left hand; M19.041 Primary osteoarthritis, right hand; M17.0 Bilateral primary osteoarthritis of knee; Z91.041 Radiographic dye allergy status; Z91.013 Allergy to seafood
CPT/HCPCS: 36415; 71046; 74177; 80048; 80053; 81001; 82150; 83036; 83605; 83690; 85025; 85610; 85730; 87040; 87070; 87075; 87077; 87186; 87205; 88304; 93005; 94640; 94760; 96361; 96365; 96372; 96375; 99285

== ENCOUNTER → 2021-05-06 | Outpatient (CLI) | payer BC ==
[~2021-05-06] MED LIST: BAMLANIVIMAB (EUA) 700 MG, ETESEVIMAB (EUA) 1,400 MG in SODIUM CHLORIDE 0.9% 50 ML IVPB ONE; SODIUM CHLORIDE 0.9% 50 ML IVPB ONE; SODIUM CHLORIDE 0.9% 500 ML 500 ML in EMPTY BAG 1 BAG IV PRN; diphenhydrAMINE 50 MG/ML 1 ML VIAL IVP STA; methylPREDNISolone SOD SUCCI 125 MG/2 ML VIAL IV STA
[2021-05-06 08:17] VITALS: RESP 16
[2021-05-06 08:59] VITALS: BP 144/88; PULSE 65; TEMP 97.5
== END ==
LOC: PROCWHC3 07:55
PROVIDERS: ATTEND Family Medicine
DX: U07.1 COVID-19 (principal); E66.9 Obesity, unspecified; Z68.31 Body mass index [BMI] 31.0-31.9, adult; Z91.041 Radiographic dye allergy status; Z91.013 Allergy to seafood
CPT/HCPCS: 96360; 96375; 99212; J1200; J2930; J3490; M0245

== ENCOUNTER 2023-01-17 08:29 | Emergency (ER) | payer BC ==
[2023-01-17 08:33] VITALS: BP 158/86; PULSE 75; RESP 20; TEMP 98.1
--- NOTE | 2023-01-17 08:57 | ED ---
ENT HPI - General Chief complaint: ENT Stated complaint: Dizziness Time Seen by Provider: 01/17/23 08:38 Source: patient Mode of arrival: ambulatory Limitations: no limitations - History of Present Illness Initial comments: Patient is a 62-year-old male presenting to the emergency room with complaints of positional dizziness despite the use of meclizine as prescribed by his primary care provider which he is almost out of. He reports right ear pain with dizziness ongoing for 2 weeks he states that he saw his primary care provider who diagnosed her with vertigo and gave him meclizine and his symptoms are persisting. He also reports briefly utilizing Flonase and states that while he was taking this did seem to improve but stopped taking the medication. He denies any other complaints or concerns including any chest pain, shortness breath, abdominal pain, nausea, vomiting, headache, tinnitus, fevers or chills. - Related Data Home Medications Medication Instructions Recorded Confirmed Aspirin EC [Ecotrin Low Dose] 81 mg PO DAILY 03/26/20 03/28/20 Cetirizine HCl [Zyrtec] 10 mg PO DAILY 03/26/20 03/28/20 Previous Rx's Medication Instructions Recorded Montelukast [Singulair] 10 mg PO HS #30 tab 05/22/16 Acetaminophen Tab [Tylenol Tab] 1,000 mg PO Q6HR PRN #30 tablet 04/01/20 Amoxic-Pot Clav 875-125Mg 1 each PO Q12HR #14 tab 04/01/20 [Augmentin 875-125] Ciprofloxacin HCl [Cipro] 500 mg PO Q12HR #14 tablet 04/01/20 Ibuprofen [Motrin] 600 mg PO Q8HR PRN #30 tab 04/01/20 metroNIDAZOLE [Flagyl] 500 mg PO TID #30 tab 04/01/20 Azelastine HCl [Astelin Nasal 137 mcg NASAL DAILY 30 Days #1 each 01/17/23 Ramer] Fluticasone Nasal Ramer [Flonase 2 spray EA NOSTRIL DAILY #16 gm 01/17/23 Nasal Ramer] Meclizine [Antivert] 25 mg PO TID PRN 10 Days #30 tab 01/17/23 Allergies Allergy/AdvReac Type Severity Reaction Status Date / Time Iodinated Contrast Media Allergy Wheezing Verified 01/17/23 08:33 shellfish derived [Shellfish] Allergy Anaphylaxis Verified 01/17/23 08:33 Review of Systems ROS Statement: Those systems with pertinent positive or pertinent negative responses have been documented in the HPI. ROS Other: All systems not noted in ROS Statement are negative. Past Medical History Past Medical History: Hyperlipidemia, Osteoarthritis (OA), Pneumonia Additional Past Medical History / Comment(s): 04/09/15 Pt presented to [facility] ER with cough, chest congestion, loss of voice (raspy). He saw his PCP and was placed on ABX and Medrol but has gotten no better- he feels worse. He has a sore throat and occasonal sweats and chills. He is being admitted with clinical impression of R lower lobe pneumonia, dyspnea and sinusitis. 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 History of Any Multi-Drug Resistant Organisms: None Reported Past Surgical History: Hernia Repair, Orthopedic Surgery Additional Past Surgical History / Comment(s): Umbilical hernia repair, R knee arthroscopy, fibroid tumor removed from L lower back, bronchoscopy 2008, sinuplasty with polypectomy. right total knee replacement 05/05/16 Past Anesthesia/Blood Transfusion Reactions: Motion Sickness, Postoperative Nausea & Vomiting (PONV) Past Psychological History: No Psychological Hx Reported Smoking Status: Never smoker Past Alcohol Use History: None Reported Past Drug Use History: None Reported - Past Family History Brother(s) Family Medical History: No Reported History Sister(s) Family Medical History: No Reported History Father Family Medical History: Renal Disease Additional Family Medical History / Comment(s): Father recently diagnosed with hydrocephalis (NPH). He is on peritoneal dialysis. He is 76 yrs old. Mother Family Medical History: No Reported History Additional Family Medical History / Comment(s): Mother is healthy and is 75 yrs. old. General Exam Limitations: no limitations General appearance: alert, in no apparent distress Head exam: Present: atraumatic, normocephalic, normal inspection Eye exam: Present: normal appearance, PERRL, EOMI. Absent: scleral icterus, conjunctival injection, nystagmus, periorbital swelling ENT exam: Present: mucous membranes moist Expanded TM/Canal exam: Effusion: Right TM (serous) Mouth exam: Present: normal external inspection Teeth exam: Present: normal inspection Throat exam: normal inspection Neck exam: Present: normal inspection, full ROM. Absent: lymphadenopathy Respiratory exam: Absent: respiratory distress, accessory muscle use Cardiovascular Exam: Present: regular rate GI/Abdominal exam: Absent: distended Extremities exam: Present: normal inspection, full ROM. Absent: pedal edema, joint swelling Back exam: Present: normal inspection Neurological exam: Present: alert, oriented X3, CN II-XII intact, normal gait Psychiatric exam: Present: normal affect, normal mood Skin exam: Present: warm, dry, intact, normal color. Absent: rash Course Vital Signs 01/17/23 08:30 Temperature 98.1 F Pulse Rate 75 Respiratory 20 Rate Blood Pressure 158/86 O2 Sat by Pulse 99 Oximetry Medical Decision Making - Medical Decision Making Was pt. sent in by a medical professional or institution (, PA, DRAG DOWN, urgent care, hospital, or usp...) When possible be specific @ -No Did you speak to anyone other than the patient for history (EMS, parent, family, police, friend...)? What history was obtained from this source @ -No Did you review nursing and triage notes (agree or disagree)? Why? @ -I reviewed and agree with nursing and triage notes Were old charts reviewed (outside hosp., previous admission, EMS record, old EKG, old radiological studies, urgent care reports/EKG's, usp records)? Report findings @ -No old charts were reviewed Differential Diagnosis (chest pain, altered mental status, abdominal pain women, abdominal pain men, vaginal bleeding, weakness, fever, dyspnea, syncope, headache, dizziness, GI bleed, back pain, seizure, CVA, palpatations, mental health, musculoskeletal)? @ -Differential Dizziness: Benign paroxysmal positional Vertigo, Menieres disease, otitis media, acoustic neuroma, vertebrobasilar insufficiency, cerebellar stroke, encephalitis, hypovolemic, arrhythmia, coronary artery syndrome, anemia, this is not meant to be an all-inclusive list EKG interpreted by me (3pts min.). @ -None done X-rays interpreted by me (1pt min.). @ -None done CT interpreted by me (1pt min.). @ -None done U/S interpreted by me (1pt. min.). @ -None done What testing was considered but not performed or refused? (CT, X-rays, U/S, labs)? Why? @ -None What meds were considered but not given or refused? Why? @ -None Did you discuss the management of the patient with other professionals (professionals i.e. ., PA, DRAG DOWN, lab, RT, psych nurse, forensic social worker, railroad car cleaning supervisor, teacher, guest relation officer, onsite case manager)? Give summary @ -No Was smoking cessation discussed for >3mins.? @ -No Was critical care preformed (if so, how long)? @ -No Were there social determinants of health that impacted care today? How? (Homelessness, low income, unemployed, alcoholism, drug addiction, transportation, low edu. Level, literacy, decrease access to med. care, residential, rehab)? @ -No Was there de-escalation of care discussed even if they declined (Discuss DNR or withdrawal of care, Hospice)? DNR status @ -No What co-morbidities impacted this encounter? (DM, HTN, Smoking, COPD, CAD, Cancer, CVA, ARF, Chemo, Hep., AIDS, mental health diagnosis, sleep apnea, morbid obesity)? @ -None Was patient admitted / discharged? Hospital course, mention meds given and route, prescriptions, significant lab abnormalities, going to OR and other pertinent info. @ - 62-year-old male presenting to the emergency room with complaints of positional dizziness despite the use of meclizine as prescribed by his primary care provider which he is almost out of. He reports right ear pain with dizziness ongoing for 2 weeks he states that he saw his primary care provider who diagnosed her with vertigo and gave him meclizine and his symptoms are persisting. No indication for diagnostic imaging, laboratory studies, or medication administration. Exam consistent with acute serous otitis media of the right ear without rupture of tympanic membrane and auditory vertigo involving right ear. Will increase dose of Antivert from 12-1/2 mg to 25 mg resume Flonase and add nutrition assistant Robert spray. Also encouraged use of daily antihistamine, follow-up with primary care provider and if symptoms persist to follow-up with your nose and throat specialist. Questions and concerns answered. Return parameters the emergency room discussed. Will discharge home in stable condition on meclizine, nutrition assistant Robert and Flonase to treat right serous otitis media without rupture of tympanic membrane and associated auditory vertigo. Undiagnosed new problem with uncertain prognosis? @ -No Drug Therapy requiring intensive monitoring for toxicity (Heparin, Nitro, Insulin, Cardizem)? @ -No Were any procedures done? @ -No Diagnosis/symptom? @ -Acute otitis media of right ear without rupture Acute, or Chronic, or Acute on Chronic? @ -Acute Uncomplicated (without systemic symptoms) or Complicated (systemic symptoms)? @ -Uncomplicated Side effects of treatment? @ -No Exacerbation, Progression, or Severe Exacerbation? @ -No Poses a threat to life or bodily function? How? (Chest pain, USA, MA, pneumonia, PE, COPD, DKA, ARF, appy, cholecystitis, CVA, Diverticulitis, Homicidal, Suicidal, threat to staff... and all critical care pts) @ -No Diagnosis/symptom? @ -Auditory vertigo involving right ear Acute, or Chronic, or Acute on Chronic? @ -Acute Uncomplicated (without systemic symptoms) or Complicated (systemic symptoms)? @ -Uncomplicated Side effects of treatment? @ -none Exacerbation, Progression, or Severe Exacerbation] @ -no Poses a threat to life or bodily function? @ -no Case discussed with Dr. Fajardo. Disposition Clinical Impression: Acute serous otitis media of right ear without rupture, Auditory vertigo involving right ear Disposition: HOME SELF-CARE Condition: Stable Instructions (If sedation given, give patient instructions): Earache (ED), Fluid In The Ear (Serous Otitis Media) (ED) Additional Instructions: Please continue daily antihistamine use. Resume Flonase 2 sprays once a day in addition to assisted living once a day. Utilize meclizine every 8 hours as needed for vertigo symptoms. Please follow-up with your urinalysis and throat specialist. Please return to the Emergency Department if symptoms worsen or any other concerns. Prescriptions: Meclizine [Antivert] 25 mg PO TID PRN 10 Days #30 tab PRN Reason: Vertigo Azelastine HCl [Astelin Nasal Ramer] 137 mcg NASAL DAILY 30 Days #1 each Fluticasone Nasal Ramer [Flonase Nasal Ramer] 2 spray EA NOSTRIL DAILY #16 gm Is patient prescribed a controlled substance at d/c from ED?: No Referrals: Jian Muller MD [Primary Care Provider] - 1-2 days Michele Hyatt DO [Doctor of Osteopathic Medicine] - 1-2 days Time of Disposition: 08:57
== END 2023-01-17 09:04 | disposition home or self-care (01) ==
LOC: EC 08:29
DX: H65.01 Acute serous otitis media, right ear (principal); H81.391 Other peripheral vertigo, right ear; M19.90 Unspecified osteoarthritis, unspecified site; Z91.013 Allergy to seafood; Z88.8 Allergy status to other drugs, medicaments and biological substances; Z79.82 Long term (current) use of aspirin; Z79.899 Other long term (current) drug therapy
CPT/HCPCS: 99283

== ENCOUNTER → 2024-04-28 | Outpatient (CLI) | payer BC ==
--- NOTE | 2024-04-28 07:54 | MM ---
Reason for Exam: Clinical finding. Baseline mammogram. Prior Study Comparison: Patient's first Mammogram. Tissue Density: There are scattered areas of fibroglandular density. Findings: Analyzed By CAD. The pattern is symmetrical. Some fullness in the left axillary region is evident. There is increased density which may be underlying lymphadenopathy on the mediolateral oblique view. Ultrasound recommended for additional evaluation. No suspicious groups of microcalcifications, spiculated or lobular masses, architectural distortion or other secondary signs of malignancy are mammographically apparent. Overall Assessment: Incomplete: need additional imaging evaluation, BI-RAD 0 Management: Diagnostic Breast Ultrasound of the left breast. A negative mammogram report should not preclude additional follow up of suspicious palpable abnormalities. Patient should continue monthly self breast exam. A clinical breast exam by your physician is recommended on an annual basis and results should be correlated with mammographic findings. Note on Sarah scores and lifetime risk: 1. A Sarah score greater than 3% is considered moderate risk. If this is the case, consider specialist referral to assess eligibility for a risk reducing agent. 2. If overall lifetime risk for the development of breast cancer is 20% or higher, the patient may qualify for future screening with alternating mammogram and breast MRI. [facility], , 04/28/2024 7:51 AM. Electronically signed and approved by: Ti Kennedy D.O. Radiologis
--- NOTE | 2024-04-28 08:51 | USB ---
Reason for Exam: Clinical finding. Technique: Method: Targeted. Findings: The upper outer quadrant of the left breast, the area of palpable concern of the left breast and the axilla of the left breast were scanned. There is a hypoechoic area with a thin rim measuring less than 3 cm it is measures 4.3 cm in length and appears to correlate with mammographic findings. A very elongated be considered.. Overall Assessment: Probably benign, BI-RAD 3 Management: Surgical Consultation of the left breast. A clinical breast exam by your physician is recommended on an annual basis and results should be correlated with mammographic findings. This exam should not preclude additional follow-up of suspicious palpable abnormalities. Results were given to the patient verbally at the time of exam. [facility], , 04/28/2024 8:14 AM. Electronically signed and approved by: Ti Kennedy D.O. Radiologis
== END | disposition home or self-care (01) ==
LOC: RADMAMWWP 07:25
PROVIDERS: ATTEND Family Medicine
DX: N63.20 Unspecified lump in the left breast, unspecified quadrant (principal); R92.323 Mammographic fibroglandular density, bilateral breasts
CPT/HCPCS: 77062; 77066

== ENCOUNTER → 2024-09-15 | Outpatient (CLI) | payer MEDICARE ==
[2024-09-15 13:53] VITALS: BP 128/77; PULSE 65; RESP 17; TEMP 98.2
== END ==
LOC: WWCWWP 13:36
PROVIDERS: ATTEND Surgery
DX: Z53.9 Procedure and treatment not carried out, unspecified reason (principal)

== ENCOUNTER → 2024-10-06 | Outpatient (CLI) | payer MEDICARE ==
--- NOTE | 2024-10-07 07:58 | USB ---
Reason for Exam: Clinical finding. Technique: Method: Targeted. Prior Study Comparison: 04/28/2024 Bilateral MG 3D diag mammo w/cad [facility], [facility]. Findings: The axilla of the left breast was scanned. Technique utilized:US breast axilla LT Image; Ultrasound imaging of: Area of concern, retroareolar region and axilla. No evidence for organizing fluid collection or mass. No evidence for lymphadenopathy. Overall Assessment: Benign, BI-RAD 2 Management: Clinical Management of the left breast in 1 year. A clinical breast exam by your physician is recommended on an annual basis and results should be correlated with mammographic findings. This exam should not preclude additional follow-up of suspicious palpable abnormalities. Results were given to the patient verbally at the time of exam. [facility], , 10/06/2024 3:59 PM. Electronically signed and approved by: Corona Diaz DO
== END | disposition home or self-care (01) ==
LOC: RADUSWWP 15:07
PROVIDERS: ATTEND Surgery
DX: R92.8 Other abnormal and inconclusive findings on diagnostic imaging of breast (principal)

== ENCOUNTER 2024-10-26 07:44 | Day surgery (SDC) | payer MEDICARE ==
--- NOTE | 2024-10-26 07:41 | P.GSHP ---
History of Present Illness H&P Date: 10/26/24 CHIEF COMPLAINT: Dysphagia and colon screen HISTORY OF PRESENT ILLNESS: The patient is a 64-year-old male who presents with dysphagia, gastroesophageal reflux disease and need for colon screen. Upper and lower endoscopy were offered for further evaluation and management. PAST MEDICAL HISTORY: Please see list. PAST SURGICAL HISTORY: Please see list. MEDICATIONS: Please see list. ALLERGIES: Please see list. SOCIAL HISTORY: No illicit drug use FAMILY HISTORY: No reports of Crohn disease or ulcerative colitis. REVIEW OF ORGAN SYSTEMS: CONSTITUTIONAL: No reports of fevers or chills. GI: Denies any blood in stools or constipation. PHYSICAL EXAM: VITAL SIGNS: Stable GENERAL: Well-developed pleasant in no acute distress. HEENT: No scleral icterus. Extraocular movements grossly intact. Moist buccal mucosa. NECK: Supple without lymphadenopathy. CHEST: Unlabored respirations. Equal bilateral excursions. CARDIOVASCULAR: Regular rate and rhythm. Distal 2+ pulses. ABDOMEN: Soft, nondistended. MUSCULOSKELETAL: No clubbing, cyanosis, or edema. ASSESSMENT: 1. Dysphagia and gastroesophageal reflux disease 2. Colon screen. PLAN: 1. Recommend proceeding with an upper and lower endoscopy Past Medical History Past Medical History: Hyperlipidemia, Osteoarthritis (OA), Pneumonia, Pulmonary Embolus (PE) Additional Past Medical History / Comment(s): Other HX: Pt states he has had high cholesterol in the past but has never had to take medication for this, ocular migraines that are seasonal, sinus problems, otosclerosis, pneumonia 2009rare vertigo, OA of bilateral hands and knees, fx L arm and injury with R ankle damage yrs ago.after knee surgery pe History of Any Multi-Drug Resistant Organisms: None Reported Past Surgical History: Hernia Repair, Orthopedic Surgery Additional Past Surgical History / Comment(s): Umbilical hernia repair, R knee arthroscopy, fibroid tumor removed from L lower back, bronchoscopy 2008, s inuplasty with polypectomy. right total knee replacement 05/05/16 Past Anesthesia/Blood Transfusion Reactions: Motion Sickness, Postoperative Nausea & Vomiting (PONV) Smoking Status: Never smoker - Past Family History Brother(s) Family Medical History: No Reported History Sister(s) Family Medical History: No Reported History Father Family Medical History: Renal Disease Additional Family Medical History / Comment(s): Father recently diagnosed with hydrocephalis (NPH). He is on peritoneal dialysis. He is 76 yrs old. Mother Family Medical History: No Reported History Additional Family Medical History / Comment(s): Mother is healthy and is 75 yrs. old. Medications and Allergies Home Medications Medication Instructions Recorded Confirmed Type Aspirin EC [Ecotrin Low Dose] 81 mg PO DAILY 03/26/20 10/25/24 History Cetirizine HCl [Zyrtec] 10 mg PO DAILY 03/26/20 10/25/24 History Ibuprofen [Motrin] 600 mg PO Q8HR PRN #30 tab 04/01/20 10/25/24 Rx Acetaminophen Tab [Tylenol Tab] 1,000 mg PO Q6HR PRN 10/25/24 10/25/24 History Areds 2 (Unk) 1 tab PO DAILY 10/25/24 10/25/24 History Co Q 10 (Unk) 1 tab PO DAILY 10/25/24 10/25/24 History Glucosamine-Chrondroitin (Unk) 1 tab PO DAILY 10/25/24 10/25/24 History Vit C (Unk) 1 tab PO DAILY 10/25/24 10/25/24 History Vit D3 (Unk) 1 tab PO DAILY 10/25/24 10/25/24 History Allergies Allergy/AdvReac Type Severity Reaction Status Date / Time Iodinated Contrast Media Allergy Wheezing Verified 10/25/24 10:12 shellfish derived [Shellfish] Allergy Anaphylaxis Verified 10/25/24 10:12
[~2024-10-26 07:44] MED LIST changes: -BAMLANIVIMAB (EUA) 700 MG, ETESEVIMAB (EUA) 1,400 MG in SODIUM CHLORIDE 0.9% 50 ML IVPB ONE; +LACTATED RINGERS 1,000 ML IV SCH; +LIDOCAINE 1% (10MG/ML) FOR IV START INTRADERMA PRN; -SODIUM CHLORIDE 0.9% 50 ML IVPB ONE; -SODIUM CHLORIDE 0.9% 500 ML 500 ML in EMPTY BAG 1 BAG IV PRN; -diphenhydrAMINE 50 MG/ML 1 ML VIAL IVP STA; -methylPREDNISolone SOD SUCCI 125 MG/2 ML VIAL IV STA
[2024-10-26] MEDS: IV FLUID CONTINUATION 1,000 ML IV ONE (08:00)
[2024-10-26 08:13] VITALS: RESP 16; TEMP 97.4
[2024-10-26 08:21] LABS: Glucose,Whole Blood 100 mg/dL (70-110)
[2024-10-26] MEDS ORDERED: PROPOFOL 10 MG/ML 20 ML VIAL IV ONE (08:34)
[2024-10-26] MEDS ORDERED: LIDOCAINE 1% INJ 10MG/ML (20 ML MDV) ONE (08:34)
[2024-10-26 09:36] VITALS: BP 127/78; PULSE 78
--- NOTE | 2024-10-26 09:41 | P.PCN ---
Date of Procedure: 10/26/24 Description of Procedure: PREOPERATIVE DIAGNOSIS: Gastroesophageal reflux disease. Dysphagia POSTOPERATIVE DIAGNOSIS: Gastroesophageal reflux disease. Acute gastric ulcer with bleeding Acute duodenal ulcer without bleeding Gastritis. OPERATION: Esophagogastroduodenoscopy with cold forceps biopsies along esophagus, antrum and duodenum SURGEON: Marlyn Walker MD ANESTHESIA: MAC. INDICATIONS: The patient is a 64-year-old male who presents with dysphagia and reflux disease. Benefits and risks of the procedure were described. Informed consent was obtained. DESCRIPTION: The patient was brought into the endoscopy suite and laid in the left lateral decubitus position. An Olympus gastroscope was passed along the posterior oropharynx down to the distal esophagus where the squamocolumnar junction was encountered at 38 cm from the incisors. The stomach was entered and no bile reflux was found. Additional findings are listed below. Biopsies with cold forceps were obtained of the antrum. The first through third portion of the duodenum was examined. Retroflexion of the scope confirmed Hill grade 1 lower esophageal valve. The squamocolumnar junction demonstrated LA grade A erosive esophagitis. The stomach was desufflated. The patient tolerated the procedure well. FINDINGS: Squamocolumnar junction 38 cm from the incisors. Diaphragmatic hiatus at 38 cm. Hill grade 1 lower esophageal valve. LA grade A erosive esophagitis. Biopsies obtained Acute gastric ulcer along antrum, 2 mm x 3 with active bleed Acute duodenal ulcer without bleeding, second portion with biopsies obtained of the duodenum. Chronic gastritis with biopsies obtained. RECOMMENDATIONS: Omeprazole 40 mg for 2 weeks
--- NOTE | 2024-10-26 09:43 | P.PCN ---
Date of Procedure: 10/26/24 Description of Procedure: PREOPERATIVE DIAGNOSIS: Positive Cologuard testing Colonoscopy screening POSTOPERATIVE DIAGNOSIS: Tubular adenoma rectum Tubular adenoma sigmoid colon Internal hemorrhoids, grade 2 OPERATION: Colonoscopy to the ileocecal valve and appendiceal orifice, cecum Colonoscopy with hot snare polypectomy SURGEON: Marlyn Walker MD. ANESTHESIA: MAC. INDICATIONS: The patient is an 64-year-old male who presents family history of malignant colon polyps and personal history of colon polyps. Last colonoscopy 5 years. Benefits and risks were described and informed consent was obtained. DESCRIPTION OF PROCEDURE: The patient had undergone Suprep. The patient had been brought into the operating room and laid in the left lateral decubitus position. After adequate intravenous sedation, the rectum was examined with 2% lidocaine jelly. The prostate was unremarkable. No external hemorrhoids were encountered. The rectal tone was within normal limits. No lesions were palpated in the rectal vault. An Olympus colonoscope was advanced until the cecum, ileocecal valve and appe ndiceal orifice were clearly viewed. The prep was excellent. No sigmoid diverticulosis was encountered. Colonic polyps were found and removed. No evidence of focal colitis was found. Retroflexion of the scope demonstrated grade 2 internal hemorrhoids without active bleeding or inflammation. The colon was desufflated. The patient had tolerated the procedure well. Withdrawal time was over 6 minutes. FINDINGS: Aronchick preparation quality scale 1 (1-5) Internal hemorrhoids, grade 2 No external hemorrhoids No arteriovenous malformations. No sigmoid diverticulosis Removal of 2 polyps: - Snare polypectomy 10 cm from the anal verge, 10 mm adenoma, rectum - Snare polypectomy sigmoid colon, 4 mm flat villous adenoma No focal colitis. RECOMMENDATIONS: Repeat colonoscopy 3 years, 2027 Plan - Discharge Summary Discharge Rx Participant: No New Discharge Prescriptions: New Omeprazole [PriLOSEC] 40 mg PO DAILY #14 cap Continue Cetirizine HCl [Zyrtec] 10 mg PO DAILY Aspirin EC [Ecotrin Low Dose] 81 mg PO DAILY Acetaminophen Tab [Tylenol] 1,000 mg PO Q6HR PRN PRN Reason: Pain Vit D3 (Unk) 1 tab PO DAILY Vit C (Unk) 1 tab PO DAILY Areds 2 (Unk) 1 tab PO DAILY Glucosamine-Chrondroitin (Unk) 1 tab PO DAILY Co Q 10 (Unk) 1 tab PO DAILY Discontinued Ibuprofen [Motrin] 600 mg PO Q8HR PRN #30 tab PRN Reason: Pain Discharge Medication List Aspirin EC [Ecotrin Low Dose] 81 mg PO DAILY 03/26/20 [History] Cetirizine HCl [Zyrtec] 10 mg PO DAILY 03/26/20 [History] Acetaminophen Tab [Tylenol] 1,000 mg PO Q6HR PRN 10/25/24 [History] Areds 2 (Unk) 1 tab PO DAILY 10/25/24 [History] Co Q 10 (Unk) 1 tab PO DAILY 10/25/24 [History] Glucosamine-Chrondroitin (Unk) 1 tab PO DAILY 10/25/24 [History] Vit C (Unk) 1 tab PO DAILY 10/25/24 [History] Vit D3 (Unk) 1 tab PO DAILY 10/25/24 [History] Omeprazole [PriLOSEC] 40 mg PO DAILY #14 cap 10/26/24 [Rx] Follow up Appointment(s)/Referral(s): Marlyn Walker MD [STAFF PHYSICIAN] - 11/15/24 2:00 pm Patient Instructions/Handouts: *Surgery [facility] - (Anesthesia) Discharge Instructions Outpatient Surgery, Diet for Stomach Ulcers and Gastritis (GEN), Colorectal Polyps (GEN), Colonoscopy (DC), Upper Endoscopy (DC) Activity/Diet/Wound Care/Special Instructions: Repeat colonoscopy 3 years, 2027 Discharge Disposition: HOME SELF-CARE
== END 2024-10-26 10:03 | disposition home or self-care (01) ==
LOC: ORWHC2ENDO 07:44
PROVIDERS: ATTEND Surgery Plastic and Reconstructive Surgery
DX: Z12.11 Encounter for screening for malignant neoplasm of colon (principal); R19.5 Other fecal abnormalities; D12.5 Benign neoplasm of sigmoid colon; D12.8 Benign neoplasm of rectum; K21.00 Gastro-esophageal reflux disease with esophagitis, without bleeding; K64.1 Second degree hemorrhoids; K25.3 Acute gastric ulcer without hemorrhage or perforation; E78.00 Pure hypercholesterolemia, unspecified; M19.90 Unspecified osteoarthritis, unspecified site; Z79.82 Long term (current) use of aspirin; Z80.0 Family history of malignant neoplasm of digestive organs; Z86.711 Personal history of pulmonary embolism; Z91.041 Radiographic dye allergy status; Z98.890 Other specified postprocedural states
CPT/HCPCS: 88305; 45385; 43239; J2003; J2704